=== PATIENT | female | born 1970 | race Caucasian/White ===

== ENCOUNTER 2019-01-12 16:07 | Emergency (ER) | payer BC ==
[~2019-01-12] VITALS: Ht 180.3 cm; Wt 105.2 kg
[~2019-01-12 16:07] MED LIST: ATIVAN1 MG PO; CYMBALTA30 MG PO; LUNESTA3 MG PO; PANTOPRAZOLE SO40 MG PO; ULTRAM50 MG PO
[2019-01-12] MEDS ORDERED: KETOROLAC TROMETHAMINE 30 MG/ML VIAL IV STA (16:27)
[2019-01-12] MEDS ORDERED: ACETAMINOPHEN/CODEINE ELIX 120-12 MG/5 ML UDC PO ONE (16:30)
--- OUTSIDE RECORDS SUMMARY | 2019-01-12 16:30 | XMS REPORT ---
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 Allergies, Adverse Reactions, Alerts This patient has no known allergies or adverse reactions. Medications This patient has no known medications. Results Test Description Test Time Test Comments Text Results Atomic Results Result Comments URINALYSIS WITH MICROSCOPIC 2017-02-03 10:53:00 Color (test code=UCOLR) YELLOW Clarity (test code=UCLAR) CLEAR Glucose (test code=UGLUC) NEGATIVE NEGATIVE Bilirubin (test code=UBILI) NEGATIVE NEGATIVE Ketones (test code=UKET) >=80 NEGATIVE Specific Daphne (test code=USPGR) >=1.030 1.005-1.030 Blood (test code=UBLD) NEGATIVE NEGATIVE PH (test code=UPH) 6.0 4.5-8.0 Protein (test code=UPROT) 30 NEGATIVE Urobilinogen (test code=U UROB) 0.2 >0.2 Nitrite (test code=UNITR) NEGATIVE NEGATIVE Leukocyte Esterase (test code=ULEUK) NEGATIVE NEGATIVE WBC (test code=WBCUR) 0-1 0-5 RBC (test code=RBCUR) 0-1 0-5 Epithial Cells (test code=U EPI) 30-40 0-10 Mucous (test code=UMUC) Small None Seen Bacteria (test code=UBACT) None Seen None Seen,Trace Crystals Urine (test code=URCRYS) Few Amorphous Urates None Seen Urine Casts (test code=UR CAST) None Seen None Seen XR ABD SERIES W/PA [id number] 09:57:04Procedure: XR ABD SERIES W/PA CXRExam Date: 02/03/2017 8:03 AMOrdering Provider: ASHLEIGH FUNESTClinical Indication: ABD PAIN: Pain- AbdominalComparison: NoneFindings:Upright chest x-ray:Cardiac size is normal.Pulmonary vasculature is normal.Mediastinal and aortic contour normal.There is no consolidation or effusion.Flat and upright abdomen:There is no small or large bowel distention.There is no pneumoperitoneum.There are no suspicious calcifications.There is no acute skeletal abnormality.Impression:1. Negative three-view chest and abdomen.This final report was electronically signed by Dr Santosh Inman MD 02/03/20179:50 AMDictated By: SANTOSH INMANDate: 02/03/2017 09:[id number] 09:02:00* Test Item Value Reference Range Comments Magnesium (test code=MG) 1.8 mg/dl 1.6-2.3 LIPASE, [id number] 09:02:00* Test Item Value Reference Range Comments Lipase (test code=LIPA) 24 U/L 8-223 [id number] 09:02:00* Test Item Value Reference Range Comments Glucose (test code=GLU) 142 mg/dl 75-110 BUN (test code=BUN) 7.0 mg/dl 6.0-17.0 Creatinine (test code=CREA) 0.5 mg/dl 0.4-1.2 Sodium (test code=NA) 143 mmol/l 137-145 Potassium (test code=K) 4.2 mmol/l 3.5-5.0 Chloride (test code=CL) 105 mmol/l 98-107 CO2 (test code=CO2) 25 mmol/l 22-30 Calcium (test code=CALC) 10.0 mg/dl 8.4-10.2 T Protein (test code=TP) 7.2 gm/dl 5.1-8.7 Albumin (test code=ALB) 4.3 gm/dl 3.5-4.6 A/G Ratio (test code=AGRAT) 1.5 % 1.1-2.2 AST (SGOT) (test code=AST) 24 U/L 11-36 ALT (SGPT) (test code=ALT) 39 U/L 11-40 Alkaline Phos (test code=ALKP) 95 U/L 47-114 Total Bilirubin (test code=TBIL) 0.6 mg/dl 0.2-1.2 Globulin (test code=GLOBU) 2.9 gm/dl 2.3-3.5 Calcium, Corrected (test code=CALCCORR) 9.8 mg/dl 8.4-10.2 Various formulas exist for corrected serum calcium results, each yielding different values. This corrected result was based on the formula: Corrected Calcium=SerumCalcium + [0.8 * ( 4 - SerumAlbumin)] EGFR if (test code=EGFRAA) >60 mL/min/1.73m\\S\\2 EGFR if Non- (test code=EGFRNA) >60 mL/min/1.73m\\S\\2 Estimated Glomerular Filtration Rate (eGFR) Reference Intervals Decision Points for 18 years and older and average body mass: >=60 Does not exclude kidney disease. 30 - 59 Suggests moderate chronic kidney disease and indicates the need for further investigation including assessment of proteinuria and cardiovascular factors. < 30 Usually indicates a need for referral for assessment and management of chronic kidney failure. CBC WITH AUTO [id number] 08:22:00* Test Item Value Reference Range Comments WBC (test code=WBC) 6.83 10\\S\\3/ul 4.80-10.80 RBC (test code=RBC) 4.73 10\\S\\6/ul 4.20-5.40 Hemoglobin (test code=HGB) 13.5 gm/dl 12.0-14.0 Hematocrit (test code=HCT) 41.6 % 37.0-47.0 MCV (test code=MCV) 87.9 fL 81.0-99.0 MCH (test code=MCH) 28.5 pg 27.0-31.0 MCHC (test code=MCHC) 32.5 gm/dl 33.0-37.0 RDW (test code=RDWVC) 13.7 % 11.5-14.5 Platelet (test code=PLT) 240 10\\S\\3/ul 130-400 MPV (test code=MPV) 12.2 fL 7.4-10.4 "NOT MEASURED" RESULTS ARE DISPLAYED WHEN THE INSTRUMENT HAS A SUPPRESSED OR UNREPORTABLE RESULT. THIS WILL MOST OFTEN HAPPEN WITH THE MPV WHEN THERE IS AN ABNORMAL PLATELET DISTRIBUTION DUE TO A CR ITICAL LOW VALUE OR PLATELET CLUMPING. THE RDW MAY BE SUPPRESSED IF THERE ARE MULTIPLE PEAKS PRESENT ON THE RBC HISTOGRAM. IN THIS CASE, A MANUAL REVIEW OF THE SLIDE WILL BE PERFORMED, AND RBC MORPHOLOGY WILL BE NOTED ON THE REPORT. NE% (test code=NE) 82.2 % 42.0-75.0 LY% (test code=LY) 13.9 % 13.0-42.0 MO% (test code=MO) 3.4 % 4.0-14.0 EO% (test code=EO) 0.0 % 1.0-3.0 BA% (test code=BA) 0.1 % 1.0-3.0 IG% (test code=IG%) 0.4 % 0.0-0.4 AUTO DIFFMAMMOGRAPHY DIGITAL SCR BILAT [place] [address] Patient Name: RIGO ALLEN MR #: [id number] : 1970 Age/Sex: 46/F Req #: [id number] Adm Physician: Ordered by: FLORENCE CHILD MD Report #: [id number] Location: MAMMO Room/Bed: Procedure: [id number] MG/MAMMOGRAPHY DIGITAL S CR BILAT Exam Date: 12/03/16 Exam Time: 0913 R EPORT STATUS: Signed #[id number] - MGSCRBIL #BILATERAL DIGITAL SCREEN ING MAMMOGRAM WITH CAD: 12/03/2016 CLINICAL: Routine screening. Compari son is made to exams dated: 04/02/2013 mammogram - [facility] and 07/21/2009 mammogram - [facility]. Current study con tains 4 films. The tissue of both breasts is heterogeneously dense. This may lower the sensitivity of mammography. Current study was also evaluated w ith a Computer Aided Detection (CAD) system. There is a benign lymph node in the right breast. No significant masses, calcifications, or other findings are seen in either breast. There has been no significant interval change. IMPRESSION: BENIGN There is no mammographic evidence of malignancy. A 1 ye ar screening mammogram is recommended. The patient will be notified by letter of the results. Ok basurto/brandon:12/14/2016 11:24:35 Advertising Consultant: Agnieszka ANDRES)(Diane), [facility] letter sent: Compared to Prior B9 Mammogram BI-RADS: 2 Benign Dictated By: OK FARFAN DO 1124 Transcribed By: BRANDON on 12/14/16 1124 COPY TO: FLORENCE CHILD MD
--- OUTSIDE RECORDS SUMMARY | 2019-01-12 16:31 | XMS REPORT | Continuity of Care Document ---
Author Author [facility] Organization [facility] Address [address] [place] [address] ;ext= Care Team Providers Care Railway Track Worker Name Role Phone ASHLEIGH TRAYLOR [facility] ASHLEIGH T[facility]LOR [facility] Admission Diagnosis Code Admission Diagnosis Date Abdominal pain Social History Element Description Code Description Smoking Status Code System Start Date End Date Smoking Status [id number] Unknown if ever smoked SNOMED-CT Problems Code Code System Problem Name Start Date End Date Status 350186347 SNOMED-CT Gastroparesis syndrome [address] Description 057438947 Drug Treatment Unknown Allergies Code Code System Allergy Substance Type Reaction Severity Start Date End Date Status 7052 RXNorm morphine Drug allergy Unknown Active Results Laboratory Results Order: UA URINALYSIS WITH MICROSCOPY LOINC Test Result Flag Range Unit Date 5778 1Color:Type:Pt:Urine:Nom YELLOW 02/03/2017 09:13 5767-9 1Appearance:Aper:Pt:Urine:Nom CLEAR 02/03/2017 09:13 2349-9 1Glucose:ACnc:Pt:Urine:Ord NEGATIVE NEGATIVE 02/03/2017 09:13 5770-3 1Bilirubin:ACnc:Pt:Urine:Ord:Test strip NEGATIVE NEGATIVE 02/03/2017 09:13 2514-8 1Ketones:ACnc:Pt:Urine:Ord:Test strip >=80 A NEGATIVE 02/03/2017 09:13 5811-5 1Specific gravity:Rden:Pt:Urine:Qn:Test strip >=1.030 A 1.005-1.030 02/03/2017 09:13 5794-3 1Hemoglobin:ACnc:Pt:Urine:Ord:Test strip NEGATIVE NEGATIVE 02/03/2017 09:13 5803-2 1pH:LsCnc:Pt:Urine:Qn:Test strip 6.0 A 4.5-8.0 02/03/2017 09:13 24704-0 1Protein:ACnc:Pt:Urine:Ord:Test strip 30 A NEGATIVE 02/03/2017 09:13 5818-0 1Urobilinogen:ACnc:Pt:Urine:Ord:Test strip 0.2 0.2 02/03/2017 09:13 5802-4 1Nitrite:ACnc:Pt:Urine:Ord:Test strip NEGATIVE NEGATIVE 02/03/2017 09:13 5799-2 1Leukocyte esterase:ACnc:Pt:Urine:Ord:Test strip NEGATIVE NEGATIVE 02/03/2017 09:13 5821-4 1Leukocytes:Naric:Pt:Urine sed:Qn:Microscopy.light.HPF 0-1 A 0-5 02/03/2017 09:13 96074-5 1Erythrocytes:Naric:Pt:Urine sed:Qn:Microscopy.light.HPF 0-1 A 0-5 02/03/2017 09:13 54829-4 1Epithelial cells.squamous:Naric:Pt:Urine sed:Qn:Microscopy.light.HPF 30-40 A 0-10 02/03/2017 09:13 8247-9 1Mucus:ACnc:Pt:Urine sed:Ord:Microscopy.light Small A None Seen 02/03/2017 09:13 5769-5 1Bacteria:Naric:Pt:Urine sed:Qn:Microscopy.light.HPF None Seen None Seen,Trace 02/03/2017 09:13 5782-8 1Crystals:Prid:Pt:Urine sed:Nom:Microscopy.light Few Amorphous Urates A None Seen 02/03/2017 09:13 9842-6 1Casts:Naric:Pt:Urine sed:Qn:Microscopy.light.LPF None Seen None Seen 02/03/2017 09:13 * Performing Lab Footnotes:* [address] [place] [address] - [id number] - [address] [address] - [place] [address] [facility] - MD: DIRECTOR MAYRA ARMENTA Order: CBC PLATELET AUTO DIFF LOINC Test Result Flag Range Unit Date 1Leukocytes^^corrected for nucleated erythrocytes:NCnc:Pt:Bld:Qn:Automated count 6.83 4.80-10.80 10^3/ul 02/03/2017 08:13 789-8 1Erythrocytes:NCnc:Pt:Bld:Qn:Automated count 4.73 4.20-5.40 10^6/ul 02/03/2017 08:13 718-7 1Hemoglobin:MCnc:Pt:Bld:Qn 13.5 12.0-14.0 gm/dl 02/03/2017 08:13 4544-3 1Hematocrit:VFr:Pt:Bld:Qn:Automated count 41.6 37.0-47.0 % 02/03/2017 08:13 787-2 1Erythrocyte mean corpuscular volume:EntVol:Pt:RBC:Qn:Automated count 87.9 81.0-99.0 fL 02/03/2017 08:13 785-6 1Erythrocyte mean corpuscular hemoglobin:EntMass:Pt:RBC:Qn:Automated count 28.5 27.0-31.0 pg 02/03/2017 08:13 786-4 1Erythrocyte mean corpuscular hemoglobin concentration:MCnc:Pt:RBC:Qn:Automated count 32.5 L 33.0-37.0 gm/dl 02/03/2017 08:13 788-0 1Erythrocyte distribution width:Ratio:Pt:RBC:Qn:Automated count 13.7 11.5-14.5 % 02/03/2017 08:13 777-3 1Platelets:NCnc:Pt:Bld:Qn:Automated count 240 130-400 10^3/ul 02/03/2017 08:13 12050-8 1Platelet mean volume:EntVol:Pt:Bld:Qn:Automated count 12.2 A 7.4-10.4 fL 02/03/2017 08:13 Note: 'NOT MEASURED' RESULTS ARE DISPLAYED WHEN THE INSTRUMENT HAS A SUPPRESSED OR UNREPORTABLE RESULT. THIS WILL MOST OFTEN HAPPEN WITH THE MPV WHEN THERE IS AN ABNORMAL PLATELET DISTRIBUTION DUE TO A CRITICAL LOW VALUE OR PLATELET CLUMPING. THE RDW MAY BE SUPPRESSED IF THERE ARE MULTIPLE PEAKS PRESENT ON THE RBC HISTOGRAM. IN THIS CASE, A MANUAL REVIEW OF THE SLIDE WILL BE PERFORMED, AND RBC MORPHOLOGY WILL BE NOTED ON THE REPORT. 770-8 1Neutrophils/100 leukocytes:NFr:Pt:Bld:Qn:Automated count 82.2 H 42.0-75.0 % 02/03/2017 08:13 736-9 1Lymphocytes/100 leukocytes:NFr:Pt:Bld:Qn:Automated count 13.9 13.0-42.0 % 02/03/2017 08:13 5905-5 1Monocytes/100 leukocytes:NFr:Pt:Bld:Qn:Automated count 3.4 L 4.0-14.0 % 02/03/2017 08:13 713-8 1Eosinophils/100 leukocytes:NFr:Pt:Bld:Qn:Automated count 0 L 1.0-3.0 % 02/03/2017 08:13 706-2 1Basophils/100 leukocytes:NFr:Pt:Bld:Qn:Automated count 0.1 L 1.0-3.0 % 02/03/2017 08:13 1IG% 0.4 0.0-0.4 % 02/03/2017 08:13 * Performing Lab Footnotes:* [address] [place] [address] [id number] - [address] [address] - [place] [address] [facility] - : DIRECTOR MAYRA ARMENTA Order: CMP COMPREHENSIVE METABOLIC PANEL LOINC Test Result Flag Range Unit Date 1Glucose 142 H 75-110 mg/dl 02/03/2017 08:13 1BUN 7 6.0-17.0 mg/dl 02/03/2017 08:13 1Creatinine 0.5 0.4-1.2 mg/dl 02/03/2017 08:13 1Sodium 143 137-145 mmol/l 02/03/2017 08:13 1Potassium 4.2 3.5-5.0 mmol/l 02/03/2017 08:13 1Chloride 105 98-107 mmol/l 02/03/2017 08:13 1CO2 25 22-30 mmol/l 02/03/2017 08:13 1Calcium 10 8.4-10.2 mg/dl 02/03/2017 08:13 1T Protein 7.2 5.1-8.7 gm/dl 02/03/2017 08:13 1Albumin 4.3 3.5-4.6 gm/dl 02/03/2017 08:13 1A/G Ratio 1.5 1.1-2.2 % 02/03/2017 08:13 1AST (SGOT) 24 11-36 U/L 02/03/2017 08:13 1ALT (SGPT) 39 11-40 U/L 02/03/2017 08:13 1Alkaline Phos 95 47-114 U/L 02/03/2017 08:13 1Total Bilirubin 0.6 0.2-1.2 mg/dl 02/03/2017 08:13 1Globulin 2.9 2.3-3.5 gm/dl 02/03/2017 08:13 1Calcium, Corrected 9.8 8.4-10.2 mg/dl 02/03/2017 08:13 Note: Various formulas exist for corrected serum calcium results, each yielding different values. This corrected result was based on the formula: Corrected Calcium=SerumCalcium + [0.8 * ( 4 - SerumAlbumin)] 1EGFR if >60 mL/min/1.73m^2 02/03/2017 08:13 1EGFR if Non- >60 mL/min/1.73m^2 02/03/2017 08:13 Note: Estimated Glomerular Filtration Rate (eGFR) Reference Intervals Decision Points for 18 years and older and average body mass: >=60 Does not exclude kidney disease. 30 - 59 Suggests moderate chronic kidney disease and indicates the need for further investigation including assessment of proteinuria and cardiovascular factors. < 30 Usually indicates a need for referral for assessment and management of chronic kidney failure. * Performing Lab Footnotes:* [address] [place] [address] [id number] [place] [address] SARAH Callaway MD: DIRECTOR MAYRA ARMENTA Order: LIPASE SERUM LOINC Test Result Flag Range Unit Date 1Lipase 24 8-223 U/L 02/03/2017 08:13 * Performing Lab Footnotes:* [address] [place] [address] [id number] - [address] [place] [address] SARAH Callaway MD: DIRECTOR MAYRA ARMENTA Order: MAGNESIUM SERUM LOINC Test Result Flag Range Unit Date 1Magnesium 1.8 1.6-2.3 mg/dl 02/03/2017 08:13 * Performing Lab Footnotes:* [address] [place] [address] [id number] - [address] [place] [address] SARAH Callaway MD: DIRECTOR MAYRA ARMENTA Radiology Results Order: [id number] XR ABD SERIES W/PA CXR* Exam Completion Date:02/03/2017 08:03 Procedure: XR ABD SERIES W/PA CXR Exam Date: 02/03/2017 8:03 AMOrdering Provider: ASHLEIGH SORENSENlinical Indication: ABD PAIN: Pain- AbdominalComparison: NoneFindings: Upright chest x-ray: Cardiac size is normal. Pulmonary vasculature is normal.Mediastinal and aortic contour normal. There is no consolidation or effusion.Flat and upright abdomen: There is no small or large bowel distention. There is no pneumoperitoneum. There are no suspicious calcifications. There is n o acute skeletal abnormality.Impression:1. Negative three-view chest and abdome n.This final report was electronically signed by Dr Santosh Inman MD 79:50 AMDictated By: SANTOSH INMANDate: 02/03/2017 09:57 Vital Signs Vitals Value Date BP Systolic 146 mmHg 02/03/2017 BP Diastolic 87 mmHg 02/03/2017 Respiratory Rate 14 02/03/2017 O2% BldC Oximetry 100 02/03/2017 Body Temperature 97.8 F 02/03/2017 Height 71 in 02/03/2017 Weight Measured 151.01 lbs 02/03/2017 BSA (Body Surface Area) 1.97348 02/03/2017 BMI (Body Mass Index) 21.1 02/03/2017 Plan of Care * No data in the system Procedures Code Code System Procedure Name Target Site Date of Procedure XR ABD SERIES W/PA CXR 02/03/2017 09:57 Encounters Date Code Diagnosis Status (ICD10) - K3184 GASTROPARESIS Active Immunizations * No data in the system Functional Status Code Functional/Cognitive Condition Code System Date Status [id number] Orientated SNOMED-CT 02/03/2017 Active [id number] Mentally alert SNOMED-CT 02/03/2017 Active Hospital Discharge Instructions * Discharge Instructions 2* Important Information* Consult your physician or return to the Emergency Department immediately if worse, if not better as expected, or if any problems arise. * Follow Up Care* Yes * Important Information* Please understand that you have received care only on an emergency basis. If your condition does not improve, you should call your personal physician for follow-up care. If you do not have a physician, you may call the referred physician listed. * If you have questions about your care or these discharge instructions, you may call the Emergency Department. Please take your discharge paperwork with you to any follow-up appointments. * Follow-Up With:* Primary Care Physician * Medication* While you were in the Emergency Department, you were given medication that may cause sedation. You may feel sleepy or light headed. Do not drive for 4-6 hours after discharge. * DO NOT drink alcohol, drive or operate machinery if taking medicines which cause drowsiness or make you feel light-headed. * Follow up Provider 1* primary dr * Activity Level* As tolerated, unrestricted * Diet* Regular * Patient Teaching* Patient education provided
[2019-01-12] MEDS ORDERED: DEXAMETHASONE SOD PHOS 10 MG/1 ML VIAL IM ONE (16:45)
[2019-01-12 17:00] LABS: BASOPHILS % 0.4 % (0.0-1.0); EOSINOPHILS # (AUTO) 0.1 (0.0-0.4); HEMATOCRIT 39.7 % (34.2-44.1); HEMOGLOBIN 12.9 g/dL (12.0-16.0); LYMPHOCYTES # (AUTO) 2.6 (1.0-3.2); LYMPHOCYTES % 38.2 % (18.0-39.1); MEAN CORPUSCULAR HEMOGLOBIN 28.9 pg (28-32); MEAN CORPUSCULAR HGB CONC 32.5 g/dL (31-35); MONOCYTES # (AUTO) 0.4 (0.2-0.8); MONOCYTES % 6.4 % (4.4-11.3); NEUTROPHILS # (AUTO) 3.6 (2.1-6.9); NEUTROPHILS % 53.9 % (38.7-80.0); PLATELET COUNT 287 x10e3/uL (140-360); RED BLOOD COUNT 4.46 x10e6/uL (3.6-5.1); RED CELL DISTRIBUTION WIDTH 14.6 % (11.7-14.4)
[2019-01-12] MEDS ORDERED: DIAZEPAM 5 MG TAB PO SCH (17:00)
[2019-01-12 17:01] LABS: BILIRUBIN,URINE NEGATIVE (NEGATIVE); CLARITY,URINE SL CLOUDY (CLEAR); COLOR,URINE YELLOW (YELLOW); KETONES,URINE TRACE (NEGATIVE); LEUKOCYTE ESTERASE ,URINE NEGATIVE (NEGATIVE); NITRITE,URINE NEGATIVE (NEGATIVE); PROTEIN,URINE DIPSTICK NEGATIVE (NEGATIVE); URINE UROBILINOGEN 0.2 mg/dL (0.2 - 1)
[2019-01-12 17:12] LABS: STREPTOCOCCUS GRP A ANTIGEN NEGATIVE (NEGATIVE)
[2019-01-12 17:13] LABS: BACTERIA,URINE FEW /HPF; EPITHELIAL CELLS,URINE RARE /LPF
[2019-01-12 17:18] LABS: ALANINE AMINOTRANSFERASE 12 IU/L (0-55); ALBUMIN 3.8 g/dL (3.5-5.0); ALBUMIN/GLOBULIN RATIO 1.2 (0.8-2.0); ALKALINE PHOSPHATASE 96 IU/L (40-150); ANION GAP 15.3 mmol/L (8-16); BLOOD UREA NITROGEN 11 mg/dL (7-26); BUN/CREATININE RATIO 15 (6-25); CALCIUM 9.3 mg/dL (8.4-10.2); CARBON DIOXIDE 25 mmol/L (22-29); CHLORIDE 103 mmol/L (98-107); CREATININE, SERUM 0.75 mg/dL (0.57-1.11); EST GLOMERULAR FILTRATION RATE > 60 ML/MIN (60-); GLUCOSE 104 mg/dL (74-118); POTASSIUM 4.3 mmol/L (3.5-5.1); SODIUM 139 mmol/L (136-145)
[2019-01-12 17:30] LABS: INFLUENZAE A&B ANTIGEN (RAPID) NEGATIVE (NEGATIVE)
--- NOTE | 2019-01-12 17:34 | Diagnostic Imaging Report ---
EXAM: CHEST 2 VIEWS DATE: 01/12/2019 4:27 PM INDICATION: Head/neck pain COMPARISON: None FINDINGS: The trachea is midline. The lungs are symmetrically expanded without evidence for large focal consolidation, pneumothorax, or significant pleural effusion. The cardiomediastinal silhouette and pulmonary vasculature are within normal limits. No acute osseous abnormality is identified. The surrounding soft tissues are unremarkable. IMPRESSION: No acute cardiopulmonary process identified. Signed by: Dr. Erich Garvin MD on 01/12/2019 5:31 PM
[2019-01-12 17:51] VITALS: BP 104/74
== END 2019-01-12 18:03 | disposition home or self-care (01) ==
LOC: ER 16:07
DX: R50.9 Fever, unspecified (principal); R05 Cough; J20.9 Acute bronchitis, unspecified; S16.1XXA Strain of muscle, fascia and tendon at neck level, initial encounter
CPT/HCPCS: 36415; 71046; 80053; 81001; 83518; 85025; 87040; 87070; 87086; 87400; 93005; 99284; J1100; J1885

== ENCOUNTER 2019-01-24 16:27 | Inpatient (IN) | payer BC ==
[~2019-01-24] VITALS: Ht 180.3 cm; Wt 72.6 kg
--- NOTE | 2019-01-24 16:41 | NUR ---
The pt. arrived to the unit from an outside Er and adm procedures were completed. Dr. Barksdale was notofied of the pt's arrival and orders received and he will see the pt. in the morning.
[2019-01-24 16:52] VITALS: BP 130/76
[2019-01-24 17:26] VITALS: BP 130/76
[2019-01-24] MEDS: SODIUM CHLORIDE 0.9% 1000ML 1,000 ML IV SCH (18:08)
[2019-01-24 19:25] VITALS: BP 129/71
[2019-01-24] MEDS ORDERED: HYDROMORPHONE 20MG/ NS 100ML IV PRN (19:30)
[2019-01-24] MEDS: HYDROMORPHONE 1MG/1ML INJ IV PRN (19:53)
[2019-01-24 21:00] VITALS: BP 129/71
[2019-01-24] MEDS: PROMETHAZINE 12.5MG/ NACL 0.9% 12.5 MG/50 ML BAG IV PRN (22:38)
[2019-01-25] VITALS (8 sets, daily range): BP systolic 89–106; BP diastolic 50–62
[2019-01-25] MEDS: HYDROMORPHONE 1MG/1ML INJ IV PRN ×6 (00:23→23:04)
[2019-01-25] MEDS: PROMETHAZINE 12.5MG/ NACL 0.9% 12.5 MG/50 ML BAG IV PRN ×2 (04:31→20:26)
--- NOTE | 2019-01-25 07:29 | NUR ---
H&P cc: intractable N/V HPI:48yoF, PCP , devleoped intractable N/V. does have hx gastric bypass. Last EGD in 2017. PMH: gastritis, esophagitis, intractable N/V, Gastric banding PSHx: Partial hysterectomy, Cholecystectomy. Allergies; see emr FH/SH; no illicits; no etoh meds; see MAR ROS; no f/c/s/BONNER/cp/sob/dizziness/skin rash/back pain/confusion/vision changes v/s/ revd PE tired appearing anicteric ns1s2 mod bs soft MILD EPIGASTRIC DISCOMFORT; nd no e/t skin dry n. affect labs/meds revd A/P: Intractable N/V Hx gastric banding GERD Gastritis Plan: IVF; IV ppi; antiemetics; bowel reg GI eval SCD Dispo; f/u GI recs Sergei Barksdale MD, PhD.
[2019-01-25] MEDS ORDERED: TRAMADOL HCL 50 MG TAB PO PRN (07:30)
[2019-01-25 08:05] LABS: BASOPHILS % 0.1 % (0.0-1.0); EOSINOPHILS # (AUTO) 0.1 (0.0-0.4); EOSINOPHILS % 1.2 % (0.0-6.0); HEMATOCRIT 34.6 % (34.2-44.1); LYMPHOCYTES # (AUTO) 3.2 (1.0-3.2); LYMPHOCYTES % 27.8 % (18.0-39.1); MEAN CORPUSCULAR HEMOGLOBIN 28.7 pg (28-32); MEAN CORPUSCULAR HGB CONC 31.8 g/dL (31-35); MEAN CORPUSCULAR VOLUME 90.3 fL (81-99); MONOCYTES # (AUTO) 1.1 (0.2-0.8); MONOCYTES % 9.5 % (4.4-11.3); NEUTROPHILS % 61.1 % (38.7-80.0); PLATELET COUNT 254 x10e3/uL (140-360); RED BLOOD COUNT 3.83 x10e6/uL (3.6-5.1); RED CELL DISTRIBUTION WIDTH 14.7 % (11.7-14.4)
[2019-01-25 08:31] LABS: ANION GAP 10.8 mmol/L (8-16); BLOOD UREA NITROGEN 8 mg/dL (7-26); BUN/CREATININE RATIO 13 (6-25); CALCIUM 8.4 mg/dL (8.4-10.2); CARBON DIOXIDE 24 mmol/L (22-29); CHLORIDE 106 mmol/L (98-107); CREATININE, SERUM 0.63 mg/dL (0.57-1.11); EST GLOMERULAR FILTRATION RATE > 60 ML/MIN (60-); GLUCOSE 84 mg/dL (74-118); POTASSIUM 3.8 mmol/L (3.5-5.1); SODIUM 137 mmol/L (136-145)
[2019-01-25 08:55] LABS: MAGNESIUM 1.8 MG/DL (1.3-2.1); PHOSPHORUS 2.7 MG/DL (2.3-4.7)
[2019-01-25] MEDS ORDERED: PANTOPRAZOLE 40 MG 10ML VIAL IV SCH (09:00)
[2019-01-25] MEDS: DULOXETINE HCL 30 MG DELAYED RELEASE PO SCH ×2 (09:03→17:31)
[2019-01-25] MEDS: SENNOSIDES 8.6 MG TAB PO SCH (09:03)
[2019-01-25] MEDS: MULTIVITAMINS/MINERALS TAB PO SCH (09:03)
--- NOTE | 2019-01-25 11:26 | NUR ---
Call recvd from Dr Diane Fountain and order recvd to get the consent for EGD
[2019-01-25] MEDS: SODIUM CHLORIDE 0.9% 1000ML 1,000 ML IV SCH (11:35)
[2019-01-25] MEDS ORDERED: NICOTINE 14 MG/EA PATCH TOP SCH (14:00)
[2019-01-25] MEDS: NICOTINE 14 MG/EA PATCH TOP SCH (14:12)
--- NOTE | 2019-01-25 16:11 | NUR ---
Patient off the unit for EGD, Stable
[2019-01-25] MEDS ORDERED: PANTOPRAZOLE 40 MG 10ML VIAL IV ONE (16:53)
--- NOTE | 2019-01-25 17:46 | NUR ---
Recvd patient from PACU. AAOx3, Not in any distress, keep monitoring
[2019-01-25] MEDS: METOCLOPRAMIDE HCL 10 MG/2ML VIAL IV SCH ×2 (17:50→23:04)
--- NOTE | 2019-01-25 20:00 | NUR ---
pt received. pt assessed. no ss of distress noted. pt co of constant upper abd pain. discussed pain mgnt poc. verbalized understanding. will cont to follow poc. call mccullough within reach.
--- NOTE | 2019-01-25 21:48 | Operative Report ---
DATE OF PROCEDURE: 01/25/2019 SURGEON: Elliott Fountain MD ADDITIONAL REFERRING PHYSICIAN: Samm Davenport MD. PROCEDURE: EGD with biopsies. INDICATIONS FOR EGD: Intractable nausea and vomiting. MEDICATIONS: The patient was done under MAC. Please see anesthesiologist's note. DESCRIPTION OF PROCEDURE: With the patient in left lateral decubitus position, a flexible fiberoptic Olympus gastroscope was introduced into the esophagus under direct visualization without any difficulty. There was some patchy erythema noted in distal esophagus. A minute tongue of velvety red mucosa was noted to extend proximally from the GE junction. Biopsies were obtained to rule out Solorzano's. The scope was then advanced with ease into the stomach and the patient was apparently status post Kellie-en-Y. Anastomosis was intact. Enteric loop was patent. No evidence of marginal ulcers. The scope was subsequently withdrawn. The patient tolerated the procedure well. IMPRESSION: 1. Distal esophagitis, mild. 2. Rule out Solorzano esophagus. 3. Status post Kellie-en-Y. Anastomosis intact. No evidence of marginal ulcers. PLAN: Follow up histology. We will augment current PPI therapy. Initiate IV Reglan. Elliott Fountain MD [facility] /[id number] cc: MD Samm Freeman III, MD
[2019-01-26] VITALS (7 sets, daily range): BP systolic 117–143; BP diastolic 64–81
[2019-01-26] MEDS ORDERED: ACETAMINOPHEN 325 MG TAB PO PRN (00:45)
[2019-01-26] MEDS: PROMETHAZINE 12.5MG/ NACL 0.9% 12.5 MG/50 ML BAG IV PRN ×3 (02:24→14:51)
--- NOTE | 2019-01-26 03:03 | NUR ---
hat placed in bathroom. pt informed ua needed. verbalized understanding. call mccullough within reach.
[2019-01-26] MEDS: SODIUM CHLORIDE 0.9% 1000ML 1,000 ML IV SCH (03:19)
[2019-01-26] MEDS: HYDROMORPHONE 1MG/1ML INJ IV PRN ×4 (03:20→20:57)
[2019-01-26] MEDS: METOCLOPRAMIDE HCL 10 MG/2ML VIAL IV SCH ×4 (05:42→23:53)
[2019-01-26] MEDS: PANTOPRAZOLE 40 MG 10ML VIAL IV SCH ×2 (05:42→16:52)
--- NOTE | 2019-01-26 06:13 | NUR ---
ua collected and sent to lab. no ss of distress noted. call mccullough within reach.
[2019-01-26 06:22] LABS: CLARITY,URINE HAZY (CLEAR); COLOR,URINE YELLOW (YELLOW)
[2019-01-26 06:23] LABS: LEUKOCYTE ESTERASE ,URINE NEGATIVE (NEGATIVE); NITRITE,URINE NEGATIVE (NEGATIVE); PROTEIN,URINE DIPSTICK NEGATIVE (NEGATIVE)
[2019-01-26 06:24] LABS: BILIRUBIN,URINE NEGATIVE (NEGATIVE); KETONES,URINE 2+ (NEGATIVE); URINE UROBILINOGEN 0.2 mg/dL (0.2 - 1)
[2019-01-26 06:33] LABS: WBC,URINE (MAN) 0-5 /HPF (0-5)
[2019-01-26 06:34] LABS: BACTERIA,URINE MANY /HPF; EPITHELIAL CELLS,URINE MANY /LPF; RBC,URINE 0-5 /HPF (0-5)
[2019-01-26 06:45] LABS: CALCIUM OXALATE CRYSTALS,UR MANY (FEW); MUCUS,URINE MODERATE (RARE)
--- NOTE | 2019-01-26 07:12 | NUR ---
pt alert resp even and unlabored at this time. pt able to make needs known, no c/o pain nor distress noted, call light in reach.
[2019-01-26] MEDS: DULOXETINE HCL 30 MG DELAYED RELEASE PO SCH ×2 (08:35→16:52)
[2019-01-26] MEDS: NICOTINE 14 MG/EA PATCH TOP SCH (08:35)
[2019-01-26] MEDS: SENNOSIDES 8.6 MG TAB PO SCH (08:35)
[2019-01-26] MEDS: MULTIVITAMINS/MINERALS TAB PO SCH (08:35)
[2019-01-26] MEDS ORDERED: HYDROCODONE/APAP 5MG-325MG TAB PO PRN ×2 (14:30→14:45)
--- NOTE | 2019-01-26 16:24 | Progress Note ---
DATE: 01/26/2019 Medicine Progress Note SUBJECTIVE: The patient has recently had an EGD, had a distal esophagitis. I am covering for Dr. Sergei Barksdale. She is currently stating that she has some pain, but despite on examination, there is no tenderness. She had an EGD yesterday. She is requiring IV Dilaudid continuously. PHYSICAL EXAMINATION: VITAL SIGNS: Temperature is 98, pulse 69, respiratory rate is 20, blood pressure 136/81, and pulse ox 98% on room air. GENERAL: Not in acute distress. Alert and oriented x3. Cooperative on examination. HEENT: Head; normocephalic, atraumatic. Eyes; pupils are equal, round, and reactive to light bilaterally. Extraocular movements intact bilaterally. Throat; no evidence of erythema or exudates in the posterior pharynx. Has poor dentition. NECK: Supple. Good range of motion. PULMONARY: Clear to auscultation bilaterally. No wheezing, no rales, no rhonchi, no crackles appreciated. CARDIOVASCULAR: Positive S1 and S2. No murmurs, rubs, or gallops appreciated. ABDOMEN: Soft, nondistended, and nontender to palpation. Bowel sounds present. MUSCULOSKELETAL: Strength is 5/5 throughout. No evidence of any muscle deficits on examination. No weakness appreciated. NEUROLOGIC: Cranial nerves II through XII grossly intact. No evidence of any neurological deficits on exam. SKIN: Intact. Warm to touch. Good cap refill. PSYCHIATRIC: Normal affect and mood. EXTREMITIES: No edema. Good range of motion throughout. LABORATORY FINDINGS: Show white count 11.4, hemoglobin 11, hematocrit is 34, and platelets of 254. Chemistry; sodium 137, potassium 3.8, chloride 106, bicarb 24, anion gap of 10, BUN is 8, creatinine is 0.63, glucose 84, calcium 8.4, phosphorus 2.7, magnesium 1.8, and glucose is 91. Urinalysis shows calcium oxalate, urine bacteria, mucus seen. MICROBIOLOGY: None. IMAGING STUDIES: None. IMPRESSION: 1. Intractable nausea and vomiting. 2. History of gastric banding. 3. Acid reflux with gastritis. PLAN: The patient underwent status post EGD on 01/25/2019, by Dr. Fountain, that showed evidence of distal esophagitis, which is mild and status post Kellie-en-Y anastomosis intact. No evidence of marginal ulcerations. At this time, he recommended PPI b.i.d. and IV Reglan. We will also add Carafate. She still reports having some pain, despite on examination, there is no evidence of any pain. We will add Linwood 5 mg q.6 p.r.n., change Phenergan to Zofran. Add Carafate to see if that will help with the pain. I feel like the patient likely has some drug-seeking behavior, as the patient clinically on examination, does not exhibit any kind of pain. Otherwise, we will continue same plan of care and monitor very closely. Get a.m. labs. MD JHONNY Salamanca/[place] /[id number]
[2019-01-26] MEDS: SUCRALFATE 1 GM/10 ML SUSP NG SCH ×2 (16:52→21:01)
--- NOTE | 2019-01-26 19:24 | NUR ---
report given to oncoming nurse, pt stable at this time.
[2019-01-26] MEDS ORDERED: METOCLOPRAMIDE HCL 10 MG/2ML VIAL ONE (19:45)
--- NOTE | 2019-01-26 22:40 | NUR ---
patient in bed, iv fluid is running, left IV line intact, she had pain med PRN earlier, now she is resting, bed alarm is on, will continue to monitor.
[2019-01-27] VITALS (10 sets, daily range): BP systolic 101–119; BP diastolic 51–72
--- NOTE | 2019-01-27 00:23 | NUR ---
Dr Diane Fountain came and saw patient in her room, the MD advanced the diet to full liquid.
[2019-01-27] MEDS ORDERED: DONNATAL/LIDOCAINE/MAALOX 30 ML SUSP PO PRN (00:45)
--- NOTE | 2019-01-27 01:20 | NUR ---
left antecubital IV is infiltrated, inserted a new IV to left hand size 22.
[2019-01-27] MEDS: HYDROMORPHONE 1MG/1ML INJ IV PRN ×5 (01:29→21:10)
[2019-01-27] MEDS: PANTOPRAZOLE 40 MG 10ML VIAL IV SCH ×2 (05:42→16:34)
[2019-01-27 05:44] LABS: BASOPHILS % 0.2 % (0.0-1.0); EOSINOPHILS # (AUTO) 0.1 (0.0-0.4); EOSINOPHILS % 1.8 % (0.0-6.0); HEMATOCRIT 32.6 % (34.2-44.1); HEMOGLOBIN 10.3 g/dL (12.0-16.0); LYMPHOCYTES # (AUTO) 2.8 (1.0-3.2); MEAN CORPUSCULAR HEMOGLOBIN 28.6 pg (28-32); MEAN CORPUSCULAR HGB CONC 31.6 g/dL (31-35); MEAN CORPUSCULAR VOLUME 90.6 fL (81-99); MONOCYTES # (AUTO) 0.6 (0.2-0.8); MONOCYTES % 9.4 % (4.4-11.3); NEUTROPHILS # (AUTO) 3.1 (2.1-6.9); NEUTROPHILS % 46.4 % (38.7-80.0); PLATELET COUNT 214 x10e3/uL (140-360); RED CELL DISTRIBUTION WIDTH 14.7 % (11.7-14.4)
[2019-01-27 06:09] LABS: ANION GAP 10.2 mmol/L (8-16); BLOOD UREA NITROGEN 9 mg/dL (7-26); BUN/CREATININE RATIO 15 (6-25); CALCIUM 7.9 mg/dL (8.4-10.2); CARBON DIOXIDE 24 mmol/L (22-29); CHLORIDE 106 mmol/L (98-107); CREATININE, SERUM 0.62 mg/dL (0.57-1.11); EST GLOMERULAR FILTRATION RATE > 60 ML/MIN (60-); GLUCOSE 89 mg/dL (74-118); POTASSIUM 3.2 mmol/L (3.5-5.1); SODIUM 137 mmol/L (136-145)
[2019-01-27] MEDS: SODIUM CHLORIDE 0.9% 1000ML 1,000 ML IV SCH ×3 (06:30→12:25)
[2019-01-27] MEDS: METOCLOPRAMIDE HCL 10 MG/2ML VIAL IV SCH ×4 (06:31→23:48)
[2019-01-27] MEDS: SUCRALFATE 1 GM/10 ML SUSP NG SCH ×4 (08:16→21:09)
[2019-01-27] MEDS: MULTIVITAMINS/MINERALS TAB PO SCH (10:34)
[2019-01-27] MEDS: DULOXETINE HCL 30 MG DELAYED RELEASE PO SCH ×2 (10:34→16:34)
[2019-01-27] MEDS: NICOTINE 14 MG/EA PATCH TOP SCH (10:34)
[2019-01-27] MEDS: SENNOSIDES 8.6 MG TAB PO SCH (10:34)
[2019-01-27 12:00] LABS: LYMPHOCYTES % (MANUAL) 41 % (19-48); MONOCYTES % (MANUAL) 8 % (3.4-9.0); NEUTROPHILS % (MANUAL) 46 % (40-74); PLATELET ESTIMATE ADEQUATE; PLATELET MORPHOLOGY COMMENT NORMAL; RBC MORPHOLOGY COMMENT NORMAL
--- NOTE | 2019-01-27 15:17 | Progress Note ---
DATE: 01/27/2019 Medicine Progress Note SUBJECTIVE: The patient is tolerating full liquid diet today. Plan is to advance her diet later today. Pain is well controlled now. PHYSICAL EXAMINATION: VITAL SIGNS: She is afebrile, normotensive. Respiratory rate is good. GENERAL: Not in acute distress. Alert and oriented x3. Cooperative on examination. HEENT: Head; normocephalic, atraumatic. Eyes; pupils are equal, round, and reactive to light bilaterally. Extraocular movements intact bilaterally. Throat; no evidence of erythema or exudates in the posterior pharynx. Has poor dentition. NECK: Supple. Good range of motion. PULMONARY: Clear to auscultation bilaterally. No wheezing, no rales, no rhonchi, no crackles appreciated. CARDIOVASCULAR: Positive S1 and S2. No murmurs, rubs, or gallops appreciated. ABDOMEN: Soft, nondistended, and nontender to palpation. Bowel sounds present. MUSCULOSKELETAL: Strength is 5/5 throughout. No evidence of any muscle deficits on examination. No weakness appreciated. NEUROLOGIC: Cranial nerves 2 through 12 grossly intact. No evidence of any neurological deficits on exam. SKIN: Intact. Warm to touch. Good cap refill. PSYCHIATRIC: Normal affect and mood. EXTREMITIES: No edema. Good range of motion throughout. LABORATORY DATA: Labs reviewed and stable. IMPRESSION: 1. Intractable nausea, vomiting. 2. History of gastric banding. 3. Acid reflux with gastritis. PLAN: At this time, the patient underwent status post EGD on 01/25/[address] Fountain, showed some evidence of distal esophagitis, which is mild and status post Kellie-en-Y anastomosis intact. No evidence of marginal ulcers. At this time, he recommends PPI b.i.d. and IV Reglan. We will also add the Carafate. Her pain is now better controlled. Continue with [facility] as needed for medications. Continue same plan of care. I would like to advance her diet to GI soft because she is anticipating being discharged hopefully tomorrow. MD JHONNY Salamanca/MODL /[id number]
--- NOTE | 2019-01-27 21:00 | NUR ---
PATIENT IS AOX4, NO SIGNS OF DISTRESS NOTED. PATIENT VOICES PAIN AT A LEVEL OF 7 AND WAS MEDICATED ORDERED. FAMILY MEMBER AT BEDSIDE AND IV IS INTACT AND PATENT. BED IS IN LOW POSITION, BOTH SIDE RAILS ARE UP, CALL LIGHT IS WITHIN EASY REACH, WILL CONTINUE TO MONITOR.
[2019-01-28] MEDS: HYDROMORPHONE 1MG/1ML INJ IV PRN ×2 (01:10→04:44)
[2019-01-28] MEDS ORDERED: ONDANSETRON HCL INJ 2MG/ML 2ML 2 MG/ML VIAL IV PRN (02:45)
[2019-01-28] MEDS: PANTOPRAZOLE 40 MG 10ML VIAL IV SCH (04:43)
[2019-01-28] MEDS: SODIUM CHLORIDE 0.9% 1000ML 1,000 ML IV SCH (05:05)
[2019-01-28 05:59] VITALS: BP 112/57
[2019-01-28] MEDS: METOCLOPRAMIDE HCL 10 MG/2ML VIAL IV SCH (06:38)
[2019-01-28 08:30] VITALS: BP 103/54
[2019-01-28] MEDS: SUCRALFATE 1 GM/10 ML SUSP NG SCH ×2 (08:35→11:58)
[2019-01-28] MEDS: MULTIVITAMINS/MINERALS TAB PO SCH (08:36)
[2019-01-28] MEDS: DULOXETINE HCL 30 MG DELAYED RELEASE PO SCH (08:36)
[2019-01-28] MEDS: NICOTINE 14 MG/EA PATCH TOP SCH (08:36)
[2019-01-28] MEDS: SENNOSIDES 8.6 MG TAB PO SCH (08:39)
--- NOTE | 2019-01-28 08:52 | NUR ---
Call to Dr. Fountain and cleared for discharge from his end and to f/u with him, Make sure patient has Carafate and PPI ordered by attending.
[2019-01-28 10:13] VITALS: BP 103/54
[2019-01-28] MEDS ORDERED: ONDANSETRON HCL 4 MG ORAL DISINTEGRATING TAB PO PRN (11:15)
[2019-01-28 11:19] VITALS: BP 116/56
[2019-01-28] MEDS ORDERED: METOCLOPRAMIDE HCL 10 MG TAB PO SCH (12:00)
--- NOTE | 2019-01-28 14:28 | NUR ---
DISCHARGED. ALL BELONGINGS WITH PATIENT. SL REMOVED INTACT. MD EXPLAINED FOLLOW UP CARE TO PATIENT. SCRIPTS AND DISCHARGE INSTRUCTIONS EXPLAINED AND COPY GIVEN TO PATIENT. PATIENT LEFT IN [facility], NO FURTHER C/O ABD DISCOMFORT.
[2019-01-28] MEDS ORDERED: PANTOPRAZOLE SOD 40 MG TABEC PO SCH (21:00)
--- NOTE | 2019-01-29 14:14 | Discharge Summary ---
FINAL DISCHARGE DIAGNOSES: 1. Intractable nausea and vomiting, status post EGD on 01/25/2019, that shows distal esophagitis and gastritis. 2. History of gastric banding. 3. Acid reflux with gastritis. CONSULTANTS: GI. PHYSICAL EXAMINATION: VITAL SIGNS: Temperature is 97.7, pulse 54, respiratory rate is 20, blood pressure 116/56, and pulse ox 99% on room air. LABORATORY FINDINGS: Show white count 6.6, hemoglobin 10.3, hematocrit is 32, and platelets of 240. Chemistry; sodium 137, potassium 3.2 replaced, chloride 106, bicarb 24, anion gap of 10, BUN is 9, creatinine 0.62, glucose is 89, calcium is 7.9, magnesium 1.8, and phosphorus is 2.7. MICROBIOLOGY: None. IMAGING STUDIES: None. HOSPITAL COURSE: This is a 48-year-old female, which I was covering for Dr. Barksdale, comes in with complaints of abdominal pain, nausea, and vomiting, has a history of gastric bypass in the past in which GI was consulted. The patient underwent status post EGD, in which she was found to have a distal esophagitis with mild gastritis. She had normal Kellie-en-Y anastomosis that was intact. There was no evidence of any marginal ulcerations according to report. Postprocedure, she was started on oral Protonix b.i.d. and IV Reglan as well as Carafate. The patient's symptoms improved throughout the hospital course. There was no evidence of any bleeding. The patient was started on clear liquid diet and advance to regular diet, which she tolerated well. She was cleared for discharge by GI standpoint. The patient was doing well with no other complaints, back to normal baseline. On the day of discharge, vital signs were stable, labs reviewed and stable. The patient is seen and evaluated, and examined thoroughly on the day of discharge. No other complaints. The patient verbalized understanding and agreed to plan of care to follow up accordingly as an outpatient with the primary care physician in 1 week and GI in 2 weeks' time, in relation to the biopsy results. MEDICATIONS: See med reconciliation form. DISPOSITION: Home. CONDITION: Stable. DIET: Heart healthy. In the event of any worsening symptoms, the patient was advised to come back to the ED for further evaluation. Discharge summary took greater than 35 minutes. MD JHONNY Salamanca/[facility] /[id number]
== END 2019-01-28 14:30 | disposition home or self-care (01) | DRG 392 ==
LOC: MED/SURG2 16:31 → OBSVTOIN 01-26 13:58
PROVIDERS: ADMIT Internal Medicine; ATTEND Internal Medicine
PROC: 0DB28ZX Excision of Middle Esophagus, Via Natural or Artificial Opening Endoscopic, Diagnostic (ICD-10-PCS; principal; 2019-01-25 18:00)
DX: K21.0 Gastro-esophageal reflux disease with esophagitis (principal); Z98.84 Bariatric surgery status; K29.70 Gastritis, unspecified, without bleeding
CPT/HCPCS: 36415; 43239; 80048; 81001; 82948; 83735; 84100; 85025; 88305; 96360; 96361; 96367; 96375; 96376; G0378; J1170; J2405; J2550; J2765; J7030

== ENCOUNTER 2019-06-26 16:44 | Emergency (ER) | payer BC ==
[~2019-06-26] VITALS: Ht 180.3 cm; Wt 70.3 kg
--- OUTSIDE RECORDS SUMMARY | 2019-06-26 16:48 | XMS REPORT | Clinical Summary ---
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 Active ALPRAZolam (XANAX) 1 MG Take 1 mg by 0 tablet mouth 2 (two) times a day. Active calcium citrate-vitamin Take 1 tablet 0 D3 (CITRACAL+D) 315-200 by mouth mg-unit per tablet every morning. Active FOLIC Take 1 tablet 0 ACID/MULTIVIT-MIN/LUTEIN by mouth (CENTRUM SILVER ORAL) every morning. Active cyanocobalamin, vitamin Place 1,000 30 each 5 B-12, 1,000 mcg tablet, mcg under the 7 sublingual tongue daily. Active DULoxetine (CYMBALTA) 60 Take 60 mg by 1 12/13 MG capsule mouth 2 (two) 7 times a day. Active sucralfate (CARAFATE) 1 TAKE 1 TABLET 120 tablet 0 gram tablet BY MOUTH FOUR 8 TIMES DAILY Active pantoprazole (PROTONIX) TAKE 1 30 tablet 0 40 MG EC tablet TABLET(40 MG) 8 BY MOUTH DAILY Active cyanocobalamin 1,000 USE 1 ML 20 mL 0 12/25 mcg/mL injection DIRECTED IN 9 THE MUSCLE EVERY MONTH 12/25/2018 Discontinued (Reorder) cyanocobalamin 1,000 USE 1 ML 20 mL 0 07/16 mcg/mL injection DIRECTED IN 8 THE MUSCLE EVERY MONTH Status Hospital, Clinic, or Ordered Dose Route Frequency Start End Date Other Facility Date Administered Medication Active cyanocobalamin injection 1000 mcg IM once 0 09/04/19 1,000 mcgIndications: 17 Poor nutrition Active Problems Problem Noted Date SBO (small bowel obstruction) 01/08/2017 Partial intestinal obstruction 01/07/2017 Tobacco dependence 10/29/2016 Acute colitis 10/22/2016 Clostridium difficile colitis 10/04/2016 Candidiasis of esophagus 10/03/2016 Abdominal pain 10/01/2016 Vomiting 09/30/2016 History of Kellie-en-Y gastric bypass 07/03/2016 GI bleed 06/25/2016 S/P gastric bypass 06/25/2016 Dysphagia 05/30/2016 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 GERD (gastroesophageal reflux disease) 05/21/2016 Depression 05/21/2016 Anxiety 05/21/2016 Intractable vomiting 05/16/2016 Depression 05/15/2016 Anxiety 05/15/2016 Intractable vomiting with nausea 05/14/2016 Encounters Care Team Description Date Type Specialty Frankie Heard MD 12/25/2018 Refill General Surgery Krys Nam RN Bariatric Follow Up Call 12/02/2018 Documentation Weight Management Federica Hazel MA Intestinal malabsorption, unspecified ty pe (Primary Dx); Bariatric surgery status 09/30/2018 Orders Only General Surgery after 06/25/2018 Immunizations Name Administration Dates Next Due FLUCELVAX QUAD PF 10/24/2016 Family History Medical History Relation Name Comments Hypertension Brother Asthma Mother Breast cancer Mother Diabetes Mother Hypertension Mother Hypertension Sister Relation Name Status Comments Brother Father Mother Alive Sister Social History Date Tobacco Use Types Packs/Day Years Used Former Smoker Cigarettes 0.5 30 Smokeless Tobacco: Never Used Tobacco Cessation: Counseling Given: Yes Drinks/Week oz/Week Comments Alcohol Use social No Sex Assigned at Date Recorded Not on file Industry Job Start Date Occupation Not on file Not on file Not on file Travel End Travel History Travel Start No recent travel history available. Last Filed Vital Signs Not on file Plan of Treatment Health Maintenance Due Date Last Done Comments CERVICAL CANCER SCREENING 1993 INFLUENZA VACCINE 09/11/2019 10/24/2016 Implants Device Identifier Shelf Expiration Date Model / Serial / L ot Implanted Type Area Manufactur er 09/09/2017 [id number] / / [id number] Kit Selnt Fibrin Humn Hms Surgy Surgical N/A: N/A [employer] 5ml Evicel - [id number] Implants; - Implanted: Qty: 1 on 05/30/2016 by [employer]; Frankie Heard MD at [facility] [employer]; HOSPITAL Surgical Wires [id number] / / [id number] Barrier Adhesion 5x6in Seprafilm - Surgical N/A: N/A GEN[employer]ME [id number] Implants; BIOSURGERY Implanted: Qty: 1 on 09/05/2016 by [employer]; Frankie Heard MD at [facility] [employer]; HOSPITAL Surgical Wires Results Not on fileafter 06/25/2018 Additional Health Concerns Resolved Time Infection Noted Time C.Difficile (E) 10/04/2016 9:09 AM CDT Insurance Type Payer Benefit Subscriber ID Effective Phone Address Plan / Dates Group PPO BCBS BCBS xxxxxxxxxxxx [id number] CHOICE resent PPO/[place] PPO [id number] Advance Directives For more information, please contact: [phone] Patient Cigarette Tester Explanation Type Date Recorded Advance Directives, 09/02/2016 12:26 PM Living Will and Medical Power of Equalizer Operator Advance Directives, 06/25/2016 11:27 AM Living Will and Medical Power of Equalizer Operator Date Inactivated Comments Code Status Date Activated 09/07/2016 10:40 PM Full Code 09/05/2016 11:21 AM Code Status decision reached by: Patient 07/24/2016 7:35 PM Full Code 07/22/2016 2:39 PM Code Status decision reached by: Patient
--- OUTSIDE RECORDS SUMMARY | 2019-06-26 16:48 | XMS REPORT ---
Author Author [facility] t Organization [facility] Address 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 Name Role Phone Aris CARMEN PCP Najma MASCORRO Attphys Unavailable Aris GORDON Attphys Unavailable Orquidea GUILLAUME, Kit David Attphys Viv WOODRUFF, Krys Attphys Unavailable Ilir AGUILAR, Aris Stallworth Attphys Unavailable LAYTON, ASHLEIGH Attphys Unavailable LAYTON, L ASHLEIGH Attphys Unavailable FLORENCE CHILD Attphys Unavailable Najma MASCORRO Admphys Unavailable LAYTON, L ASHLEIGH Admphys Unavailable Payers Payer Name Policy Type Policy Number Effective Date Expiration Date [id number] 2015 00:00:00 [facility] [id number] 2015 00:00:00 [facility] [id number] 2015 00:00:00 [facility] BCBSBCBS CHOICE PPO/FEDERAL EMPL PPOxxxxxxxxxxxx2015-Pre sentPPO xxxxxxxxxxxx 2015 00:00:00 [place] Problems Condition Name Condition Details Condition Category Status Onset Date Resolution Date Last Treatment Date Treating Clinician Comments Source SBO (small bowel obstruction) SBO (small bowel obstruction) Disease Active 2017-01-08 00:00:00 [place] Partial intestinal obstruction Partial intestinal obstruction Disea se Active 2017-01-07 00:00:00 [place] Tobacco dependence Tobacco dependence Disease Active 2016-10-29 00:00:0 0 [place] Acute colitis Acute colitis Disease Active 2016-10-22 00:00:00 [place] Clostridium difficile colitis Clostridium difficile colitis Disease Active 2016-10-04 00:00:00 [place] Candidiasis of esophagus Candidiasis of esophagus Disease Acti ve 2016-10-03 00:00:[address] Abdominal pain Abdominal pain Disease Active 2016-10-01 00:00:00 [place] Vomiting Vomiting Disease Active 2016-09-30 00:00:00 [place] [place] 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 Active 2016-07-03 00:00:00 [place] GI bleed GI bleed Disease Active 2016-06-25 00:00:00 [place] S/P gastric bypass S/P gastric bypass Disease Active 2016-06-25 00:00:0 0 [place] Dysphagia Dysphagia Disease Active 2016-05-30 00:00:00 [place] Solorzano esophagus Solorzano esophagus Disease Active 2016-05-21 00:00:00 [place] GERD (gastroesophageal reflux disease) GERD (gastroesophagea l reflux disease) Disease Active 2016-05-21 00:00:00 [place] Depression Depression Disease Active 2016-05-21 00:00:00 [place] Anxiety Anxiety Disease Active 2016-05-21 00:00:00 [place] [facility] Intractable vomiting Intractable vomiting Disease Active 00:00:00 [place] [facility] Depression Depression Disease Active 2016-05-15 00:00:00 [place] [facility] Anxiety Anxiety Disease Active 2016-05-15 00:00:00 [place] [facility] Intractable vomiting with nausea Intractable vomiting with nause a Disease Active 2016-05-14 00:00:00 [place] abbott [facility]ai Abdominal pain Abdominal pain Problem Active 2015-06-30 00:00:00 [facility] Leukocytosis Leukocytosis Problem Active 2015-06-30 00:00:00 [facility] History of adjustable gastric banding Gastric banding status Proble m Active 2015-06-30 00:00:00 [facility] Allergies, Adverse Reactions, Alerts Allergy Name Allergy Type Status Severity Reaction(s) Onset Date Inacti ve Date Treating Clinician Comments Source Morphine Allergy to Substance Active Unknown 2019-01-24 00:00:00 [facility] Codeine Propensity to adverse reactions to drug Active Other (See Comments) 2016-09-02 00:00:00 yumiko [facility] Morphine Propensity to adverse reactions to drug Active Other (See Comments) 2016-05-28 00:00:00 Welelizabeth, alpa [facility] No Known Allergies DA Active U 2015-06-29 00:00:00 [facility] Family History Family Member Diagnosis Comments Start Date Stop Date Source Natural brother Hypertension [place] [facility]ai Natural mother Asthma [facility] Natural mother Breast cancer [place] Bahai Natural mother Diabetes [facility] Natural mother Hypertension [place]lie Bahai Natural sister Hypertension Ellerslie Bahai Social History Social Habit Start Date Stop Date Quantity Comments Source History of tobacco use Cigarette Smoker [place] [place] Sex Assigned At [facility] Cigarettes smoked current (pack per day) - Reported 00:00:00 2017-01-08 00:00:00 [place] Cigarette pack-years 2017-01-08 00:00:00 2017-01-08 00:00:00 [place] Alcohol intake 2017-01-08 00:00:00 2017-01-08 00:00:00 Current non-drinker of alcohol (finding) [place] [place] Alcohol Comment 2016-05-30 00:00:00 2016-05-30 00:00:00 social [place] Smoking Status Start Date Stop Date Source Former smoker 2017-01-08 00:00:00 2017-01-08 00:00:00 [place] Medications Ordered Medication Name Filled Medication Name Start Date Stop Da te Current Medication? Ordering Clinician Indication Dosage Frequency Signature (SIG) Comments Components Source cyanocobalamin 1,000 mcg/mL injection 2018-12-25 00:00:00 Y es USE 1 ML DIRECTED IN THE MUSCLE EVERY MONTH [facility] [place] pantoprazole (PROTONIX) 40 MG EC tablet 2018-01-16 00:00:00 Yes TAKE 1 TABLET(40 MG) BY MOUTH DAILY Kody Contreras ethodist sucralfate (CARAFATE) 1 gram tablet 2017-09-08 00:00:00 Yes TAKE 1 TABLET BY MOUTH FOUR TIMES DAILY [place] cyanocobalamin 1,000 mcg/mL injection 2017-07-16 00:00 :00 2018-12-25 00:00:00 No USE 1 ML DIRECTED IN THE MUSCLE EVERY MONTH [place] [place] ALPRAZolam (XANAX) 1 MG tablet 2017-01-21 16:38:14 Yes 1mg Q.5D Take 1 mg by mouth 2 (two) times a day. [place] [place] calcium citrate-vitamin D3 (CITRACAL+D) 315-200 mg-unit per tablet 2017-01-21 16:38:14 Yes 1{tbl} QD Take 1 tablet by mouth every morning. [place] [place] FOLIC ACID/MULTIVIT-MIN/LUTEIN (CENTRUM SILVER ORAL) 2 16:38:14 Yes 1{tbl} QD Take 1 tablet by mouth every morning. [facility] [place] DULoxetine (CYMBALTA) 60 MG capsule 2016-12-13 00:00:00 Yes 60mg Q.5D Take 60 mg by mouth 2 (two) times a day. [place] [place] cyanocobalamin, vitamin B-12, 1,000 mcg tablet, sublingual 2016-10-29 00:00:[address] 1,000 mcg under the tongu e daily. [place] [place] cyanocobalamin injection 1,000 mcg 2016-09-03 19:15:00 Y es [id number] 1000ug Kody cooper traZODone (DESYREL) 50 MG tablet 2016-07-03 00:00:00 Yes 50mg QD Take 50-100 mg by mouth nightly. Kody mortensen Duloxetine Hcl (Cymbalta) 30 Mg Capsule. Duloxetine Hcl (Cymbalta) 30 Mg Capsule.dr Gongora [address] [facility] Eszopiclone (Lunesta) 3 Mg Tablet Eszopiclone (Lunesta) 3 Mg Tablet Yes [address] [facility] Lorazepam (Ativan) 1 Mg Tablet Lorazepam (Ativan) 1 Mg Tablet Yes 1 Daily [facility] Pantoprazole Sodium (Protonix) 40 Mg Tablet. Pantopr azole Sodium (Protonix) 40 Mg Tablet.dr Gongora [address] [facility] Tramadol Hcl (Ultram) 50 Mg Tablet Tramadol Hcl (Ultram) 50 Mg Tablet Yes 50 Four Times Daily as needed for Pain [facility] Immunizations Ordered Immunization Name Filled Immunization Name Date Status Comments Source FLUCELVAX QUAD PF 2016-10-24 00:00:00 Completed [place] [place] Procedures Procedure Date / Time Performed Performing Clinician [facility] e EXCISION OF MIDDLE ESOPHAGUS, ENDO, DIAGN 2019-01-25 00:00:[address] [facility] X-ray of chest, two views 2019-01-12 00:00:00 LORI PAULSON [facility] Plan of Care Planned Activity Planned Date Details Comments Source Future Scheduled Test 2019-09-11 00:00:00 INFLUENZA VACCINE [code = INFLUENZA VACCINE] [facility] [place] Future Scheduled Test 1993 00:00:00 Screening for berta gnant neoplasm of cervix (procedure) [code = 041429848] Kody apple Encounters Start Date/Time End Date/Time Encounter Type Admission Type Attendi [facility] Facility Care Department Encounter ID Source 2019-02-13 14:19:00 2019-02-15 16:35:00 Discharged Inpatient (obs) 9 BUCK MASCORRO [facility] [id number] [facility] 2019-01-26 13:58:00 2019-01-28 14:30:00 Discharged Inpatient [facility] [id number] [facility] 2019-01-12 16:07:00 2019-01-12 18:03:00 Departed Emergency Room 1 SANDRA GORDON [facility] [id number] [facility] 2017-02-03 07:32:00 2017-02-03 10:46:00 GASTROPARESIS LAYTON ASHLEIGH [facility] [id number] Results Test Description Test Time Test Comments Results Result Comments Source COLON 2019-06-21 12:17:00 RUN DATE: 06/21/19 [facility] PAGE 1 RUN TIME: 1218 Specimen Inquiry RUN USER: INTERFACE PATIENT: RIGO ALLEN LOC: KASSANDRA #: [id number] AGE/SX: 49/F ROOM: 3027 RE06/17/19REG DR: Theo Christie MD : 74 BED: A DIS: 06/18/19 STATUS: DIS IN TLOC: SPEC #: [id number] RECD: 06/18/19 STATUS: YAMILE WALTER #: [id number] GERSON: 06/18/19- SUBM DR: Theo Christie MD ENTERED: 06/18/19 SP TYPE: COLON OTHR DR: No Primary or Family Physician Faustino Rodriguez MDORDERED: GROSS/2 COPIES TO: No Primary or Family Physician Theo Christie MD [address] [place] [address] Faustino Rodriguez MD [address] [place] [address] PROCEDURES: MONA (06/18/19) TISSUES: 1. TERMINAL ILEUM - BX 2. COLON, NOS - RANDOM BX 3. SIGMOID COLON - BX CLINICAL HISTORY COLLECTION DATE: 06/17/19 ABDOMINAL PAIN FINAL DIAGNOSIS Terminal ileum, biopsy: SMALL INTESTINAL MUCOSA, NO PATHOLOGIC ALTERATION Colon, random biopsy: COLONIC MUCOSA, NO PATHOLOGIC ALTERATION NEGATIVE FOR FEATURES OF MICROSCOPIC COLITIS Sigmoid colon, polyp, biopsy: HYPERPLASTIC POLYP(S) NEGATIVE FOR MALIGNANCY DMW/gm D CONTINUED ON NEXT PAGE RUN DATE: 06/21/19 [facility] PAGE 2 RUN TIME: 1218 Specimen Inquiry RUN USER: INTERFACE SPEC #: [id number] PATIENT: RIGO ALLEN #[id number] (Continued) FINAL DIAGNOSIS (Continued) [id number] MACROSCOPIC Specimen (1) is received in formalin, labeled with the patient's name, identified as "terminal ileum", and consists of light johnson biopsy tissue measuring 0.3 cm in aggregate, submitted as (1). Specimen (2) is received in formalin, labeled with the patient's name, identified as "random colon", and consists of multiple fragments of johnson biopsy tissue measuring 0.5 cm in aggregate, submitted as (2). Specimen (3) is received in formalin, labeled with the patient's name, identified as "sigmoid colon polyp", and consists of three fragments of light johnson biopsy tissue measuring 0.35 cm in aggregate, submitted as (3). GROSS PERFORMED AT [facility] [address] [place] [id number] (p)[phone] MICROSCOPIC All of the stains, including any controls performed, stain appropriately. MICROSCOPIC PERFORMED AT [facility] [address] [place] [address] (p)[phone] PERFORMING SITE Processed at: [facility] [address] [place] [address] Signed SIGNATURE ON FILE Kathy White MD 06/21/19 1217 END OF REPORT Novel Coronavirus 2019 Inhouse 2019-06-18 07:01:00 Test Item Novel Coronavirus 2019 Inhouse (test code = COVNONPUI) Negative Negative Testing Criteria: Preprocedure ScreeningNovel Coronavirus 2019 Inhouse 2019-06-18 07:00:00* Test Item Value Reference Range Interpretation Comments Novel Coronavirus 2019 Inhouse (test code = COVNONPUI) Negative Negative Testing Criteria: Preprocedure ScreeningCoronavirus 2019 nCoV Bedside 2019-06-17 14:46:00* Test Item Value Reference Range Interpretation Comments Coronavirus 2019 nCoV Bedside (test code = COVNONPUIBED) Negative BASIC METABOLIC [id number] 05:36:00* Test Item Value Reference Range Interpretation Comments SODIUM (test code = NA) 142 mmol/L 136-145 N POTASSIUM (test code = K) 4.0 mmol/L 3.5-5.1 N CHLORIDE (test code = CL) 111.0 mmol/L 98-107 H CARBON DIOXIDE (test code = CO2) 26.0 mmol/L 21-32 N ANION GAP (test code = GAP) 9.0 10-20 L GLUCOSE (test code = GLU) 101 mg/dL 74-106 N BLOOD UREA NITROGEN (test code = BUN) 6 mg/dL 7-18 L GLOMERULAR FILTRATION RATE (test code = GFR) > 60 mL/min >=60 Estimated GFR by using Modified MDRD formula.Chronic kidney disease is defined as either kidney damageor GFR <60 mL/min/1.73 m2 for >3 months. CREATININE (test code = CREAT) 0.60 mg/dL 0.55-1.02 N Note change in reference range due to change in reagent. BUN/CREATININE RATIO (test code = BUN/CREA) 10.0 10-20 N CALCIUM (test code = CA) 8.3 mg/dL 8.5-10.1 L LIPID PROFILE (CORONARY RISK)2019-06-16 05:36:00* Test Item Value Reference Range Interpretation Comments TRIGLYCERIDES (test code = TRIG) 118 mg/dL 20-150 N CHOLESTEROL (test code = CHOL) 127 mg/dL 0-200 N CHOLESTEROL/HDL RATIO (test code = CHOLHDL) 2.0 RATIO 0-4.9 N RISK ASSOCIATED WITH CHOL/HDL RATIOS: Risk Male Female1/2 AVERAGE 3.43 3.27AVERAGE 4.97 4.442X AVERAGE 9.55 7.053X AVERAGE 23.39 11.04 REFERENCE VALUE IS RELATED TO RISK LEVELS ASRECOMMENDED BY THE GALE. HEART, LUNG, AND BLOOD INST. HDL CHOLESTEROL (test code = HDL) 49 mg/dL 40-60 N LIPOPROTEIN LDL (test code = LDL) 65 mg/dL 100-129 L Reference Interval: mg/dL mmol/L Optimal <100 <2.6Near/above optimal 100-129 2.6- 3.3Borderline High 130-159 3.4-4.1High 160-189 4.1-4.9Very High >=190 >=4.9========= This LDL result is a direct measurement.========= [id number] 05:36:00* Test Item Value Reference Range Interpretation Comments MAGNESIUM (test code = MAG) 1.9 mg/dL 1.8-2.4 N BASIC METABOLIC [id number] 05:29:00* Test Item Value Reference Range Interpretation Comments SODIUM (test code = NA) 142 mmol/L 136-145 N POTASSIUM (test code = K) 4.0 mmol/L 3.5-5.1 N CHLORIDE (test code = CL) 111.0 mmol/L 98-107 H CARBON DIOXIDE (test code = CO2) mmol/L 21-32 ANION GAP (test code = GAP) 10-20 GLUCOSE (test code = GLU) mg/dL 74-106 BLOOD UREA NITROGEN (test code = BUN) mg/dL 7-18 GLOMERULAR FILTRATION RATE (test code = GFR) mL/min >=60 CREATININE (test code = CREAT) mg/dL 0.55-1.02 BUN/CREATININE RATIO (test code = BUN/CREA) 10-20 CALCIUM (test code = CA) mg/dL 8.5-10.1 LIPID PROFILE (CORONARY RISK)2019-06-16 05:29:00* Test Item Value Reference Range Interpretation Comments TRIGLYCERIDES (test code = TRIG) mg/dL 20-150 CHOLESTEROL (test code = CHOL) mg/dL 0-200 CHOLESTEROL/HDL RATIO (test code = CHOLHDL) RATIO 0-4.9 HDL CHOLESTEROL (test code = HDL) mg/dL 40-60 LIPOPROTEIN LDL (test code = LDL) mg/dL 100-129 [id number] 05:29:00* Test Item Value Reference Range Interpretation Comments MAGNESIUM (test code = MAG) mg/dL 1.8-2.4 CBC W/AUTO [id number] 05:21:00* Test Item Value Reference Range Interpretation Comments WHITE BLOOD CELL (test code = WBC) 6.6 K/mm3 4.5-12.5 N RED BLOOD CELL (test code = RBC) 3.74 mill/mm3 3.7-5.2 N HEMOGLOBIN (test code = HGB) 10.6 gram/dL 11.5-15.5 L HEMATOCRIT (test code = HCT) 32.6 % 36.0-46.0 L MEAN CELL VOLUME (test code = MCV) 87.2 fL 80-98 N MEAN CELL HGB (test code = MCH) 28.3 picogram 27.0-33.0 N MEAN CELL HGB CONCETRATION (test code = MCHC) 32.5 gram/dL 33.0-36. 0 L RED CELL DISTRIBUTION WIDTH (test code = RDW) 16.3 % 11.6-16. 2 H RED CELL DISTRIBUTION WIDTH SD (test code = RDW-SD) 51.7 fL 37 .0-51.0 H PLATELET COUNT (test code = PLT) 206 K/mm3 150-450 N MEAN PLATELET VOLUME (test code = MPV) 12.1 fL 6.7-11.0 H NEUTROPHIL % (test code = NT%) 53.0 % 39.0-69.0 N IMMATURE GRANULOCYTE % (test code = IG%) 0.2 % 0.0-5.0 N LYMPHOCYTE % (test code = LY%) 37.2 % 25.0-55.0 N MONOCYTE % (test code = MO%) 9.1 % 0.0-10.0 N EOSINOPHIL % (test code = EO%) 0.3 % 0.0-5.0 N BASOPHIL % (test code = BA%) 0.2 % 0.0-1.0 N NUCLEATED RBC % (test code = NRBC%) 0.0 % 0-0 N NEUTROPHIL # (test code = NT#) 3.50 K/mm3 1.8-7.7 N IMMATURE GRANULOCYTE # (test code = IG#) 0.01 x10 3/uL 0-0.03 N LYMPHOCYTE # (test code = LY#) 2.45 K/mm3 1.0-5.0 N MONOCYTE # (test code = MO#) 0.60 K/mm3 0-0.8 N EOSINOPHIL # (test code = EO#) 0.02 K/mm3 0.0-0.5 N BASOPHIL # (test code = BA#) 0.01 K/mm3 0.0-0.2 N NUCLEATED RBC # (test code = NRBC#) 0.00 K/mm3 0.0-0.1 N MANUAL DIFF REQUIRED (test code = MDIFF) NO LACTIC DEHYDROGENASE(LDH)2019-06-15 16:32:00* Test Item Value Reference Range Interpretation Comments LACTIC DEHYDROGENASE(LDH) (test code = LDH) 206 IUnit/L 84-246 N [id number] 16:32:00* Test Item Value Reference Range Interpretation Comments LIPASE (test code = LIP) 72 U/L 73.0-393.0 L COMPREHENSIVE METABOLIC [id number] 16:32:00* Test Item Value Reference Range Interpretation Comments SODIUM (test code = NA) 139 mmol/L 136-145 N POTASSIUM (test code = K) 4.3 mmol/L 3.5-5.1 N CHLORIDE (test code = CL) 108.0 mmol/L 98-107 H CARBON DIOXIDE (test code = CO2) 25.0 mmol/L 21-32 N ANION GAP (test code = GAP) 10.3 10-20 N GLUCOSE (test code = GLU) 136 mg/dL 74-106 H BLOOD UREA NITROGEN (test code = BUN) 7 mg/dL 7-18 N GLOMERULAR FILTRATION RATE (test code = GFR) > 60 mL/min >=60 Estimated GFR by using Modified MDRD formula.Chronic kidney disease is defined as either kidney damageor GFR <60 mL/min/1.73 m2 for >3 months. CREATININE (test code = CREAT) 0.50 mg/dL 0.55-1.02 L Note change in reference range due to change in reagent. BUN/CREATININE RATIO (test code = BUN/CREA) 14.0 10-20 N TOTAL PROTEIN (test code = PROT) 7.1 gram/dL 6.4-8.2 N ALBUMIN (test code = ALB) 3.4 g/dL 3.4-5.0 N GLOBULIN (test code = GLOB) 3.7 gram/dL 2.7-4.2 N ALBUMIN/GLOBULIN RATIO (test code = A/G) 0.9 0.75-1.50 N CALCIUM (test code = CA) 8.6 mg/dL 8.5-10.1 N BILIRUBIN TOTAL (test code = BILT) 0.50 mg/dL 0.0-1.0 N SGOT/AST (test code = AST) 25 IUnit/L 15-37 N SGPT/ALT (test code = ALT) 25 IUnit/L 12-78 N ALKALINE PHOSPHATASE TOTAL (test code = ALKP) 88 IUnit/L 45-117 N Note change in reference range due to change in reagent. CREATINE KINASE (CK)2019-06-15 16:32:00* Test Item Value Reference Range Interpretation Comments CREATINE KINASE (CK) (test code = CK) 62 IUnit/L 26-208 N [id number] 16:32:00* Test Item Value Reference Range Interpretation Comments CKMB (test code = CKMBT) < 1.0 ng/mL 0-6.0 N [id number] 16:32:00* Test Item Value Reference Range Interpretation Comments TROPONIN-I (test code = TROPI) <0.015 ng/mL 0-0.045 N COMPREHENSIVE METABOLIC [id number] 16:23:00* Test Item Value Reference Range Interpretation Comments SODIUM (test code = NA) 139 mmol/L 136-145 N POTASSIUM (test code = K) 4.3 mmol/L 3.5-5.1 N CHLORIDE (test code = CL) 108.0 mmol/L 98-107 H CARBON DIOXIDE (test code = CO2) mmol/L 21-32 ANION GAP (test code = GAP) 10-20 GLUCOSE (test code = GLU) mg/dL 74-106 BLOOD UREA NITROGEN (test code = BUN) mg/dL 7-18 GLOMERULAR FILTRATION RATE (test code = GFR) mL/min >=60 CREATININE (test code = CREAT) mg/dL 0.55-1.02 BUN/CREATININE RATIO (test code = BUN/CREA) 10-20 TOTAL PROTEIN (test code = PROT) gram/dL 6.4-8.2 ALBUMIN (test code = ALB) g/dL 3.4-5.0 GLOBULIN (test code = GLOB) gram/dL 2.7-4.2 ALBUMIN/GLOBULIN RATIO (test code = A/G) 0.75-1.50 CALCIUM (test code = CA) 8.6 mg/dL 8.5-10.1 N BILIRUBIN TOTAL (test code = BILT) mg/dL 0.0-1.0 SGOT/AST (test code = AST) IUnit/L 15-37 SGPT/ALT (test code = ALT) IUnit/L 12-78 ALKALINE PHOSPHATASE TOTAL (test code = ALKP) IUnit/L 45-117 CREATINE KINASE (CK)2019-06-15 16:23:00* Test Item Value Reference Range Interpretation Comments CREATINE KINASE (CK) (test code = CK) IUnit/L 26-208 [id number] 16:23:00* Test Item Value Reference Range Interpretation Comments CKMB (test code = CKMBT) ng/mL 0-6.0 [id number] 16:23:00* Test Item Value Reference Range Interpretation Comments TROPONIN-I (test code = TROPI) ng/mL 0-0.045 PROTHROMBIN [id number] 15:58:00* Test Item Value Reference Range Interpretation Comments PROTHROMBIN TIME PATIENT (test code = PTP) 11.5 seconds 9.0-14.0 N INTERNATIONAL NORMAL RATIO (test code = INR) 1.0 0.8-1.2 N The therapeutic range for oral anticoagulant therapy formost indications is an international normalized ratio (INR)of between 2.0 and 3.0. The recommended therapeutic INRrange for various clinical situations is listed below: Clinical Situation INR range Pulmonary e mbolism treatment (2.0-3.0)Venous thrombosis treatmentVenous thrombosis prophylaxis (high risk surgery)Prevention of systemic embolism from: Acute myocardial infarction Valvular heart disease Atrial fibrillation Mechanical prosthetic heart valves (2.5-3.5) IS PATIENT ON ANTICOAGULANTS? NTHROMBOPLASTIN TIME [id number] 15:58:00* Test Item Value Reference Range Interpretation Comments THROMBOPLASTIN TIME PARTIAL (test code = PTT) 35.7 seconds 23.0-37. 0 N IS PATIENT ON ANTICOAGULANTS? NCBC W/AUTO [id number] 15:39:00* Test Item Value Reference Range Interpretation Comments WHITE BLOOD CELL (test code = WBC) 9.1 K/mm3 4.5-12.5 N RED BLOOD CELL (test code = RBC) 4.62 mill/mm3 3.7-5.2 N HEMOGLOBIN (test code = HGB) 12.9 gram/dL 11.5-15.5 N HEMATOCRIT (test code = HCT) 40.8 % 36.0-46.0 N MEAN CELL VOLUME (test code = MCV) 88.3 fL 80-98 N MEAN CELL HGB (test code = MCH) 27.9 picogram 27.0-33.0 N MEAN CELL HGB CONCETRATION (test code = MCHC) 31.6 gram/dL 33.0-36. 0 L RED CELL DISTRIBUTION WIDTH (test code = RDW) 16.2 % 11.6-16. 2 N RED CELL DISTRIBUTION WIDTH SD (test code = RDW-SD) 52.3 fL 37 .0-51.0 H PLATELET COUNT (test code = PLT) 244 K/mm3 150-450 N MEAN PLATELET VOLUME (test code = MPV) 11.7 fL 6.7-11.0 H NEUTROPHIL % (test code = NT%) 86.0 % 39.0-69.0 H IMMATURE GRANULOCYTE % (test code = IG%) 0.4 % 0.0-5.0 N LYMPHOCYTE % (test code = LY%) 10.0 % 25.0-55.0 L MONOCYTE % (test code = MO%) 3.5 % 0.0-10.0 N EOSINOPHIL % (test code = EO%) 0.0 % 0.0-5.0 N BASOPHIL % (test code = BA%) 0.1 % 0.0-1.0 N NUCLEATED RBC % (test code = NRBC%) 0.0 % 0-0 N NEUTROPHIL # (test code = NT#) 7.80 K/mm3 1.8-7.7 H IMMATURE GRANULOCYTE # (test code = IG#) 0.04 x10 3/uL 0-0.03 H LYMPHOCYTE # (test code = LY#) 0.91 K/mm3 1.0-5.0 L MONOCYTE # (test code = MO#) 0.32 K/mm3 0-0.8 N EOSINOPHIL # (test code = EO#) 0.00 K/mm3 0.0-0.5 N BASOPHIL # (test code = BA#) 0.01 K/mm3 0.0-0.2 N NUCLEATED RBC # (test code = NRBC#) 0.00 K/mm3 0.0-0.1 N CBC W/AUTO [id number] 15:37:00* Test Item Value Reference Range Interpretation Comments WHITE BLOOD CELL (test code = WBC) K/mm3 4.5-12.5 RED BLOOD CELL (test code = RBC) mill/mm3 3.7-5.2 HEMOGLOBIN (test code = HGB) 12.9 gram/dL 11.5-15.5 N HEMATOCRIT (test code = HCT) 40.8 % 36.0-46.0 N MEAN CELL VOLUME (test code = MCV) fL 80-98 MEAN CELL HGB (test code = MCH) picogram 27.0-33.0 MEAN CELL HGB CONCETRATION (test code = MCHC) gram/dL 33.0-36. 0 RED CELL DISTRIBUTION WIDTH (test code = RDW) % 11.6-16. 2 RED CELL DISTRIBUTION WIDTH SD (test code = RDW-SD) fL 37 .0-51.0 PLATELET COUNT (test code = PLT) K/mm3 150-450 MEAN PLATELET VOLUME (test code = MPV) fL 6.7-11.0 NEUTROPHIL % (test code = NT%) % 39.0-69.0 IMMATURE GRANULOCYTE % (test code = IG%) % 0.0-5.0 LYMPHOCYTE % (test code = LY%) % 25.0-55.0 MONOCYTE % (test code = MO%) % 0.0-10.0 EOSINOPHIL % (test code = EO%) % 0.0-5.0 BASOPHIL % (test code = BA%) % 0.0-1.0 NEUTROPHIL # (test code = NT#) K/mm3 1.8-7.7 LYMPHOCYTE # (test code = LY#) K/mm3 1.0-5.0 MONOCYTE # (test code = MO#) K/mm3 0-0.8 EOSINOPHIL # (test code = EO#) K/mm3 0.0-0.5 BASOPHIL # (test code = BA#) K/mm3 0.0-0.2 UPPER GI W/SMALL [id number] 14:23:00 [place] [id number] Patient Name: RIGO ALLEN MR #: [id number] : 1970 Age/Sex: 48/F Req #: [id number] Adm Physician: BUCK MASCORRO MD Ordered by: SINA PURCELL MD Report #: [id number] Location: MED/SURG2 Room/Bed: [facility] Procedure: DX/UPPER GI W/SMALL BOW Exam Date: 02/15/19 Exam Time: 1130 REPORT STATUS: Signed Upper GI Series with Small Bowel Follow framing inspector(S): Mirella Yin MD Comparison: None. Procedure: Barium swallow and upper GI fluoro scopic images obtained with air and barium contrast in a variety of positions. Fluoroscopy Time: 0.8 minutes Total Dose: 14.8 DISCUSSION: CLARENCE T: The bowel gas pattern is non-obstructive. SWALLOW: Grossly unremarkabl e. ESOPHAGUS: Mucosa is unremarkable. Predominately primary contractions. No significant reflux. STOMACH: Status post bailey en Y gastric bypass lyndsay nic. No evidence of anastomotic leak at the gastrojejunostomy. SMALL BOW EL: Normal mucosal appearance. Small bowel loops are normal in caliber an d distribution. Terminal ileum appears unremarkable on spot compression im ages. IMPRESSION: Status post bailey en Y gastric bypass surgery. No evide nce of obstruction, ileus, or dysmotility. Signed by: Mirella Yin MD on 02/15/2019 2:26 PM Dictated By: MIRELLA YIN MD 25 Transcribed By: DILIP on 02/15/19 1426 [employer] WORK[employer] Y TO: SINA PURCELL MD ABDOMEN-1VIEW ([facility])2019-02-15 11:54:00 [place] [address] Patient Name: RIGO ALLEN MR #: [id number] : 1970 Age/Sex: 48/F Req #: [id number] Adm Physician: BUCK MASCORRO MD Ordered by: BUCK MASCORRO MD Report #: [id number] Location: MED/SURG2 Room/Bed: [facility] Procedure: 11 DX/ABDOMEN-1VIEW (KUB) Exam Date: Exam Time: REPORT STATUS: Signed Exam: KUB - 2 views Indication: Ileus Comparison: Outside abdomen and pelvis CT of 02/13/2019, KUB of 02/14/2019 Findings: Nonobstructive bowel gas pattern. U nchanged mild gaseous distention of nondilated loops of colon. No free air. Carvajal rgical clips project over the expected location of the gastroesophageal juncti on. Surgical sutures in the left abdomen. Mild degenerative changes of the spi ne and both hip joints. Impression: Nonobstructive bowel gas pattern. Signed by: Mirella Yin MD on 02/15/2019 11:56 AM Dictated By: MIRELLA YIN MD 1156 Transcribed By: KAY WHITAKER on 02/15/19 1156 COPY TO: BUCK MASCORRO MD Sodium Level 2019-02-15 06:11:00* Test Item Value Reference Range Interpretation Comments Sodium Level (test code = 2951-2) 141 136-145 [facility] HospitalPotassium Qykmx9415-17-72 06:11:00* Test Item Value Reference Range Interpretation Comments Potassium Level (test code = 2823-3) 3.8 3.5-5.1 [facility] HospitalChloride Uobcc3137-34-53 06:11:00* Test Item Value Reference Range Interpretation Comments Chloride Level (test code = 2075-0) 107 98-107 [facility] HospitalCarbon Dioxide Hglab0375-94-30 06:11:00* Test Item Value Reference Range Interpretation Comments Carbon Dioxide Level (test code = 2028-9) 26 22-29 [facility] HospitalAnion Rzn7525-57-96 06:11:00* Test Item Value Reference Range Interpretation Comments Anion Gap (test code = 73375-3) 11.8 8-16 [facility] HospitalBlood Urea Idgcndlt2049-42-62 06:11:00* Test Item Value Reference Range Interpretation Comments Blood Urea Nitrogen (test code = 3094-0) 10 7-26 [facility] HospitalCreatinine2020-01-06 06:11:00* Test Item Value Reference Range Interpretation Comments Creatinine (test code = 2160-0) 0.61 0.57-1.11 [facility] HospitalBUN/Creatinine Cwoii1397-22-43 06:11:00* Test Item Value Reference Range Interpretation Comments BUN/Creatinine Ratio (test code = 3097-3) 16 6- [facility] HospitalEstimat Glomerular Filtration Rate 2019-02-15 06:11:00* Test Item Value Reference Range Interpretation Comments Estimat Glomerular Filtration Rate (test code = 301393002) > 60 >60 Ranges were taken from the National Kidney Disease Education Program and the [facility] literature.Reference ranges:60 or greater: Aevtsx91-51 ( for 3 consecutive months): Chronic kidney disease 15 or less: Kidney failureSt. Luke's Health – [facility] HospitalGlucose Pgjdb8741-36-26 06:11:00* Test Item Value Reference Range Interpretation Comments Glucose Level (test code = RRR8024) 83 74-118 [facility] HospitalCalcium Girgh5508-75-14 06:11:00* Test Item Value Reference Range Interpretation Comments Calcium Level (test code = 12715-4) 8.6 8.4-10.2 [facility] HospitalWhite Blood Ffras9446-25-64 05:34:00* Test Item Value Reference Range Interpretation Comments White Blood Count (test code = 6690-2) 5.74 4.8-10.8 [facility] HospitalRed Blood Ympnu4947-38-08 05:34:00* Test Item Value Reference Range Interpretation Comments Red Blood Count (test code = 789-8) 3.69 3.6-5.1 [facility] HospitalHemoglobin2020-01-06 05:34:00* Test Item Value Reference Range Interpretation Comments Hemoglobin (test code = 62477-3) 10.4 12.0-16.0 [facility] HospitalHematocrit2020-01-06 05:34:00* Test Item Value Reference Range Interpretation Comments Hematocrit (test code = 4544-3) 34.0 34.2-44.1 [facility] HospitalMean Corpuscular Ujlrpb3784-47-21 05:34:00* Test Item Value Reference Range Interpretation Comments Mean Corpuscular Volume (test code = 787-2) 92.1 81-99 [facility] HospitalMean Corpuscular Lfmiportuc0863-82-48 05:34:00* Test Item Value Reference Range Interpretation Comments Mean Corpuscular Hemoglobin (test code = 785-6) 28.2 28-32 [facility] HospitalMean Corpuscular Hemoglobin Concent 2019-02-15 05:34:00* Test Item Value Reference Range Interpretation Comments Mean Corpuscular Hemoglobin Concent (test code = 786-4) 30.6 31-35 [facility] HospitalRed Cell Distribution Yswfo8339-53-33 05:34:00* Test Item Value Reference Range Interpretation Comments Red Cell Distribution Width (test code = 00890-7) 15.2 11.7 -14.4 [facility] HospitalPlatelet Ymaty3567-30-52 05:34:00* Test Item Value Reference Range Interpretation Comments Platelet Count (test code = 777-3) 227 140-360 [facility] HospitalNeutrophils (%) (Auto)2019-02-15 05:34:00 * Test Item Value Reference Range Interpretation Comments Neutrophils (%) (Auto) (test code = 74186-8) 44.8 38.7-80.0 [facility] HospitalLymphocytes (%) (Auto)2019-02-15 05:34:00 * Test Item Value Reference Range Interpretation Comments Lymphocytes (%) (Auto) (test code = 736-9) 46.7 18.0-39.1 [facility] HospitalMonocytes (%) (Auto)2019-02-15 05:34:00* Test Item Value Reference Range Interpretation Comments Monocytes (%) (Auto) (test code = 5905-5) 7.0 4.4-11.3 [facility] HospitalEosinophils (%) (Auto)2019-02-15 05:34:00 * Test Item Value Reference Range Interpretation Comments Eosinophils (%) (Auto) (test code = 713-8) 1.2 0.0-6.0 [facility] HospitalBasophils (%) (Auto)2019-02-15 05:34:00* Test Item Value Reference Range Interpretation Comments Basophils (%) (Auto) (test code = 706-2) 0.3 0.0-1.0 [facility] HospitalIM GRANULOCYTES %2019-02-15 05:34:00* Test Item Value Reference Range Interpretation Comments IM GRANULOCYTES % (test code = IM GRANULOCYTES %) 0.0 0.0- 1.0 [facility] HospitalNeutrophils # (Auto)2019-02-15 05:34:00* Test Item Value Reference Range Interpretation Comments Neutrophils # (Auto) (test code = 751-8) 2.6 2.1-6.9 [facility] HospitalLymphocytes # (Auto)2019-02-15 05:34:00* Test Item Value Reference Range Interpretation Comments Lymphocytes # (Auto) (test code = 82386-7) 2.7 1.0-3.2 [facility] HospitalMonocytes # (Auto)2019-02-15 05:34:00* Test Item Value Reference Range Interpretation Comments Monocytes # (Auto) (test code = 742-7) 0.4 0.2-0.8 [facility] HospitalEosinophils # (Auto)2019-02-15 05:34:00* Test Item Value Reference Range Interpretation Comments Eosinophils # (Auto) (test code = 711-2) 0.1 0.0-0.4 [facility] HospitalBasophils # (Auto)2019-02-15 05:34:00* Test Item Value Reference Range Interpretation Comments Basophils # (Auto) (test code = 704-7) 0.0 0.0-0.1 [facility] HospitalAbsolute Immature Granulocyte (auto 2019-02-15 05:34:00* Test Item Value Reference Range Interpretation Comments Absolute Immature Granulocyte (auto (harshad t code = Absolute Immature Granulocyte (auto) 0 0-0.1 [facility]2019-02-14 09:48:00 [facility] [address] [place] [address] Patient Name: RIGO ALLEN MR #: [id number] : 1970 Age/Sex: 48/F Req #: [id number] Adm Physician: BUCK MASCORRO MD Ordered by: BUCK MASCORRO MD Report #: [id number] Location: MED/SURG2 Room/Bed: [facility] Procedure: 0105-00 07 DX/ABDOMEN-1VIEW ([facility]) Exam Date: 02/14/19 Exam T megan: 0830 REPORT STATUS: Signed EXAM: Abdomen 2 Views INDICATION: illeus [id number] COMPAR ALCON: None FINDINGS: Mild gaseous distention of bowel loops, mostly the large bowel. Rectal air is visualized. No signs of pneumoperitoneum. Norm al colonic stool burden. Suspected hepatomegaly. Clear lung bases. No acut e osseous abnormality. Degenerative changes of lumbar spine. IMPRESSION: 1. Mild gaseous distention of bowel loops, mostly large bowel, could represe nt mild ileus. Recommend follow-up as clinically indicated. Signed by: Dr Dereck Rivera MD on 02/14/2019 9:50 AM Dictated By: MAURY RIVERA MD El ectronically Signed By: MAURY RIVERA MD on 02/14/19949 Transcribed By: CIERRA PALMA on 02/14/19949 COPY TO: BUCK MASCORRO MD Free Thyroxine Pykld5237-01-72 16:40:00* Test Item Value Reference Range Interpretation Comments Free Thyroxine Index (test code = 34622-6) 2.1673 1.4-3.8 [facility] HospitalThyroxine (T4)2019-02-13 16:40:00* Test Item Value Reference Range Interpretation Comments Thyroxine (T4) (test code = 3026-2) 7.51 4.5-10.9 Our current method for Total T4 is not recommended for use as the only marker fo r evaluating patients for thyroid disorders.[facility] HospitalTriiodothyronine (T3) Ncyibk1515-47-14 16:40:00* Test Item Value Reference Range Interpretation Comments Triiodothyronine (T3) Uptake (test code = 3050-2) 28.86 22.5 -37.0 [facility] HospitalThyroid Stimulating Hormone (TSH) 2019-02-13 16:40:00* Test Item Value Reference Range Interpretation Comments Thyroid Stimulating Hormone (TSH) (test code = 21378-3) 0.683 0.350-4.940 [facility] HospitalAmylase Bqkzt3671-55-03 16:30:00* Test Item Value Reference Range Interpretation Comments Amylase Level (test code = 1798-8) 43 25-125 [facility] HospitalLipase2020-01-04 16:30:00* Test Item Value Reference Range Interpretation Comments Lipase (test code = 3040-3) 6 8-78 [facility] HospitalDifferential Total Cells Counted 2019-01-27 12:05:00* Test Item Value Reference Range Interpretation Comments Differential Total Cells Counted (test code = Differen tial Total Cells Counted) 100 [facility] HospitalNeutrophils % (Manual)2019-01-27 12:05:00 * Test Item Value Reference Range Interpretation Comments Neutrophils % (Manual) (test code = 13369-5) 46 40-74 [facility] HospitalLymphocytes % (Manual)2019-01-27 12:05:00 * Test Item Value Reference Range Interpretation Comments Lymphocytes % (Manual) (test code = 737-7) 41 19-48 [facility] HospitalMonocytes % (Manual)2019-01-27 12:05:00* Test Item Value Reference Range Interpretation Comments Monocytes % (Manual) (test code = 744-3) 8 3.4-9.0 [facility] HospitalReactive Macgevcezii1347-30-53 12:05:00* Test Item Value Reference Range Interpretation Comments Reactive Lymphocytes (test code = 56695-5) 5 [facility] HospitalPlatelet Cdjkidnc7603-04-93 12:05:00* Test Item Value Reference Range Interpretation Comments Platelet Estimate (test code = 21743-8) ADEQUATE [facility] HospitalPlatelet Morphology Nwwcufd5056-39-69 12:05:00* Test Item Value Reference Range Interpretation Comments Platelet Morphology Comment (test code = 35001-5) NORMAL [facility] HospitalRed Cell Morphology Iesalxd2875-50-11 12:05:00* Test Item Value Reference Range Interpretation Comments Red Cell Morphology Comment (test code = 6742-1) NORMAL [facility] HospitalBedside Eiwfosv4349-58-55 15:50:00* Test Item Value Reference Range Interpretation Comments Bedside Glucose (test code = 10329-6) 90 70-120 Meter ID: [id number] [facility] HospitalUrine IGF3080-09-53 06:45:00* Test Item Value Reference Range Interpretation Comments Urine WBC (test code = 5821-4) 0-5 0-5 [facility] HospitalUrine JBF3699-31-60 06:45:00* Test Item Value Reference Range Interpretation Comments Urine RBC (test code = 14030-3) 0-5 0-5 [facility] HospitalUrine Xdqrwdlb8465-31-92 06:45:00* Test Item Value Reference Range Interpretation Comments Urine Bacteria (test code = 84058-1) MANY NONE [facility] HospitalUrine Epithelial Zcprk9037-94-85 06:45:00 * Test Item Value Reference Range Interpretation Comments Urine Epithelial Cells (test code = 59217-3) MANY NONE [facility] HospitalUrine Calcium Oxalate Iwbnnqfj8749-44-36 06:45:00* Test Item Value Reference Range Interpretation Comments Urine Calcium Oxalate Crystals (test code = 5774-5) MANY FE W [facility] Scjxc1738-54-48 06:45:00* Test Item Value Reference Range Interpretation Comments Urine Mucus (test code = 8247-9) MODERATE RARE [facility] HospitalUrine Iwwui4053-02-56 06:26:00* Test Item Value Reference Range Interpretation Comments Urine Color (test code = 5778-6) YELLOW YELLOW [facility] HospitalUrine Jatgdwf4608-39-64 06:26:00* Test Item Value Reference Range Interpretation Comments Urine Clarity (test code = 81530-9) HAZY CLEAR [facility] HospitalUrine Specific Jphymyn7944-04-97 06:26:00 * Test Item Value Reference Range Interpretation Comments Urine Specific [place] (test code = 5811-5) 1.030 1.010-1.02 5 [facility] rX6635-87-70 06:26:00* Test Item Value Reference Range Interpretation Comments Urine pH (test code = 30075-0) 6 5-7 [facility] Leukocyte Tjckxokq3782-35-55 06:26:00* Test Item Value Reference Range Interpretation Comments Urine Leukocyte Esterase (test code = 5799-2) NEGATIVE NEGATIVE [facility] Asybdkl8460-85-16 06:26:00* Test Item Value Reference Range Interpretation Comments Urine Nitrite (test code = 85257-1) NEGATIVE NEGATIVE [facility] HospitalUrine Mqplcpz6639-80-03 06:26:00* Test Item Value Reference Range Interpretation Comments Urine Protein (test code = 5804-0) NEGATIVE NEGATIVE [facility] HospitalUrine Glucose (UA)2019-01-26 06:26:00* Test Item Value Reference Range Interpretation Comments Urine Glucose (UA) (test code = 2349-9) NEGATIVE NEGATIVE [facility] HospitalUrine Cznbdca4121-20-40 06:26:00* Test Item Value Reference Range Interpretation Comments Urine Ketones (test code = 47971-9) 2+ NEGATIVE [facility] Vgyfnnnbsdat5232-70-94 06:26:00* Test Item Value Reference Range Interpretation Comments Urine Urobilinogen (test code = 20992-6) 0.2 0.2-1 [facility] HospitalUrine Ybrfrgcxw5522-92-03 06:26:00* Test Item Value Reference Range Interpretation Comments Urine Bilirubin (test code = 1978-6) NEGATIVE NEGATIVE [facility] HospitalUrine Voisq8512-11-59 06:26:00* Test Item Value Reference Range Interpretation Comments Urine Blood (test code = 71580-2) NEGATIVE NEGATIVE [facility] HospitalPhosphorus Wbuoe9132-38-93 08:57:00* Test Item Value Reference Range Interpretation Comments Phosphorus Level (test code = TLY6119) 2.7 2.3-4.7 [facility] HospitalMagnesium Hhotk0644-75-24 08:57:00* Test Item Value Reference Range Interpretation Comments Magnesium Level (test code = 61546-7) 1.8 1.3-2.1 [facility] HospitalBlood Ooqetfh7551-04-55 17:05:00* Test Item Value Reference Range Interpretation Comments Blood Culture (test code = 25418709) NO GROWTH AFTER 5 DAYS, FINAL REPORT [facility] HospitalInfluenza Virus Types A,B Antigen 2019-01-12 17:30:00* Test Item Value Reference Range Interpretation Comments Influenza Virus Types A,B Antigen (test code = 55845-1) NEGATIVE NEGATIVE [facility] HospitalCHEST 2 FYBVG3032-71-94 17:30:00 [place] [address] Patient Name: RIGO ALLEN MR #: [id number] : 1970 Age/Sex: 48/F Req #: [id number] Adm Physician: Ordered by: LORI PAULSON RESIDENTIAL MENT[employer] HE[employer] WORKER Report #: [id number] Location: ER Room/Bed: Procedure: 1203-006 6 DX/CHEST 2 VIEWS Exam Date: 01/12/19 Exam Time: 17 20 REPORT STATUS: Signed EXAM: CHEST 2 VIEWS DATE: 01/12/2019 4:27 PM INDICATION: Head/neck pain COMPARISON: None FINDINGS: The trachea is midline. The lungs are symme trically expanded without evidence for large focal consolidation, pneumothorax , or significant pleural effusion. The cardiomediastinal silhouette and pul monary vasculature are within normal limits. No acute osseous abnormality is i dentified. The surrounding soft tissues are unremarkable. IMPRESSION: No acute cardiopulmonary process identified. Signed by: Dr. Erich shin MD on 01/12/2019 5:31 PM Dictated By: ERICH ADAIR MD 30 Transcribed By: DILIP on 01/12/191730 COPY TO: LORI PAULSON RESIDENTIAL MENTAL HEALTH WORKER Total Nectluglm2346-23-16 17:18:00* Test Item Value Reference Range Interpretation Comments Total Bilirubin (test code = 1975-2) 0.4 0.2-1.2 [facility] HospitalAspartate Amino Transf (AST/SGOT) 2019-01-12 17:18:00* Test Item Value Reference Range Interpretation Comments Aspartate Amino Transf (AST/SGOT) (test code = Aspartate Amino Transf (AST/SGOT)) 16 5-34 [facility] HospitalAlanine Aminotransferase (ALT/SGPT) 2019-01-12 17:18:00* Test Item Value Reference Range Interpretation Comments Alanine Aminotransferase (ALT/SGPT) (test code = 1742-6) 12 0-55 [facility] HospitalTotal Pixtqbf2276-78-36 17:18:00* Test Item Value Reference Range Interpretation Comments Total Protein (test code = 2885-2) 6.9 6.5-8.1 [facility] HospitalAlbumin2019-12-03 17:18:00* Test Item Value Reference Range Interpretation Comments Albumin (test code = 1751-7) 3.8 3.5-5.0 [facility] HospitalGlobulin2019-12-03 17:18:00* Test Item Value Reference Range Interpretation Comments Globulin (test code = 34487-6) 3.1 2.3-3.5 [facility] HospitalAlbumin/Globulin Jdzga2487-18-89 17:18:00 * Test Item Value Reference Range Interpretation Comments Albumin/Globulin Ratio (test code = 1759-0) 1.2 0.8-2.0 [facility] HospitalAlkaline Znmmzqenmyf7540-20-09 17:18:00* Test Item Value Reference Range Interpretation Comments Alkaline Phosphatase (test code = 6768-6) 96 40-150 [facility] HospitalGroup A Streptococcus Mkmjyv4422-59-15 17:12:00* Test Item Value Reference Range Interpretation Comments Group A Streptococcus Screen (test code = 60153-2) NEGATIVE NEG ATIVE [facility] HospitalURINALYSIS WITH MJHHSPZTWWS6309-06-38 10:53:00* Test Item Value Reference Range Interpretation Comments Color (test code = UCOLR) YELLOW Clarity (test code = UCLAR) CLEAR Glucose (test code = UGLUC) NEGATIVE NEGATIVE N Bilirubin (test code = UBILI) NEGATIVE NEGATIVE N Ketones (test code = UKET) >=80 NEGATIVE A Specific [place] (test code = USPGR) >=1.030 1.005-1.030 A Blood (test code = UBLD) NEGATIVE NEGATIVE N PH (test code = UPH) 6.0 4.5-8.0 A Protein (test code = UPROT) 30 NEGATIVE A Urobilinogen (test code = U UROB) 0.2 >0.2 N Nitrite (test code = UNITR) NEGATIVE NEGATIVE N Leukocyte Esterase (test code = ULEUK) NEGATIVE NEGATIVE N WBC (test code = WBCUR) 0-1 0-5 A RBC (test code = RBCUR) 0-1 0-5 A Epithial Cells (test code = U EPI) 30-40 0-10 A Mucous (test code = UMUC) Small None Seen A Bacteria (test code = UBACT) None Seen None Seen,Trace N Crystals Urine (test code = URCRYS) Few Amorphous Urates None Seen A Urine Casts (test code = UR CAST) None Seen None Seen N XR ABD SERIES W/PA [id number] 09:57:04Procedure: XR ABD SERIES W/PA CXRExam Date: 02/03/2017 8:03 AMOrdering Provider: ASHLEIGH SORENSENlinical Indication: ABD PAIN: Pain- AbdominalComparison: NoneFindings:Upright chest x-ray:Cardiac size is normal.Pulmonary vasculature is normal.Mediastinal and aortic contour normal.There is no consolidation or effusion.Flat and upright abdomen:There is no small or large bowel distention.There is no pneumoperitoneum.There are no suspicious calcifications.There is no acute skeletal abnormality.Impression:1. Negative three-view chest and abdomen.This final report was electronically signed by Dr Santosh Blackburn MD 02/03/20179:50 AMDictated By: SANTOSH BLACKBURNDate: 02/03/2017 09:39DRHULWEOO5860-23-65 09:02:00* Test Item Value Reference Range Interpretation Comments Magnesium (test code = MG) 1.8 mg/dl 1.6-2.3 LIPASE, MSPXG6872-62-86 09:02:00* Test Item Value Reference Range Interpretation Comments Lipase (test code = LIPA) 24 U/L 8-223 SUC9417-91-82 09:02:00* Test Item Value Reference Range Interpretation Comments Glucose (test code = GLU) 142 mg/dl 75-110 H BUN (test code = BUN) 7.0 mg/dl 6.0-17.0 Creatinine (test code = CREA) 0.5 mg/dl 0.4-1.2 Sodium (test code = NA) 143 mmol/l 137-145 Potassium (test code = K) 4.2 mmol/l 3.5-5.0 Chloride (test code = CL) 105 mmol/l 98-107 CO2 (test code = CO2) 25 mmol/l 22-30 Calcium (test code = CALC) 10.0 mg/dl 8.4-10.2 T Protein (test code = TP) 7.2 gm/dl 5.1-8.7 Albumin (test code = ALB) 4.3 gm/dl 3.5-4.6 A/G Ratio (test code = AGRAT) 1.5 % 1.1-2.2 AST (SGOT) (test code = AST) 24 U/L 11-36 ALT (SGPT) (test code = ALT) 39 U/L 11-40 Alkaline Phos (test code = ALKP) 95 U/L 47-114 Total Bilirubin (test code = TBIL) 0.6 mg/dl 0.2-1.2 Globulin (test code = GLOBU) 2.9 gm/dl 2.3-3.5 Calcium, Corrected (test code = CALCCORR) 9.8 mg/dl 8.4-10.2 Various formulas exist for corrected serum calcium results, each yielding different values. This corrected result was based on the formula: Corrected Calcium = SerumCalcium + [0.8 * ( 4 - SerumAlbumin)] EGFR if (test code = EGFRAA) >60 mL/min/1.73m\\S\\2 EGFR if Non- (test code = EGFRNA) >60 mL/min/1.73m\\ S\\2 Estimated Glomerular Filtration Rate (eGFR) Reference Intervals Decision Points for 18 years and older and average body mass: >= 60 Does not exclude kidney disease. 30 - 59 Suggests moderate chronic kidney disease and indicates the need for further investigation including assessment of proteinuria and cardiovascular factors. < 30 Usually indicates a need for referral for assessment and management of chronic kidney failure. CBC WITH AUTO [id number] 08:22:00* Test Item Value Reference Range Interpretation Comments WBC (test code = WBC) 6.83 10\\S\\3/ul 4.80-10.80 RBC (test code = RBC) 4.73 10\\S\\6/ul 4.20-5.40 Hemoglobin (test code = HGB) 13.5 gm/dl 12.0-14.0 Hematocrit (test code = HCT) 41.6 % 37.0-47.0 MCV (test code = MCV) 87.9 fL 81.0-99.0 MCH (test code = MCH) 28.5 pg 27.0-31.0 MCHC (test code = MCHC) 32.5 gm/dl 33.0-37.0 L RDW (test code = RDWVC) 13.7 % 11.5-14.5 Platelet (test code = PLT) 240 10\\S\\3/ul 130-400 MPV (test code = MPV) 12.2 fL 7.4-10.4 A "NOT M EASURED" RESULTS ARE DISPLAYED WHEN THE INSTRUMENT HAS [...] BE NOTED ON THE REPORT. NE% (test code = NE) 82.2 % 42.0-75.0 H LY% (test code = LY) 13.9 % 13.0-42.0 MO% (test code = MO) 3.4 % 4.0-14.0 L EO% (test code = EO) 0.0 % 1.0-3.0 L BA% (test code = BA) 0.1 % 1.0-3.0 L IG% (test code = IG%) 0.4 % 0.0-0.4 AUTO DIFFMAMMOGRAPHY DIGITAL SCR BILAT [place] [address] Patient Name: RIGO ALLEN MR #: [id number] : 1970 Age/Sex: 46/F Req #: [id number] [facility] Physician: Ordered by: FLORENCE CHILD MD Report #: [id number] Location: MAMMO Room/Bed: Procedure: [id number] MG/MAMMOGRAPHY DIGITAL S CR BILAT Exam Date: 12/03/16 Exam Time: 0913 R EPORT STATUS: Signed #[id number] - [id number] #BILATERAL DIGITAL SCREEN ING MAMMOGRAM WITH CAD: 12/03/2016 CLINICAL: Routine screening. Compari son is made to exams dated: 04/02/2013 mammogram - [facility] and 07/21/2009 mammogram - [facility]. Current study con tains 4 [...] be notified by letter of the results. Rafael basurto/vic:12/14/2016 11:24:35 Generator Worker: Agnieszka COLON(R)(M), [facility] letter sent: Compared to Prior B9 Mammogram BI-RADS: 2 Benign Dictated By: RAFAEL FARFAN DO 1124 Transcribed By: VIC on 12/14/16 1124 COPY TO: FLORENCE CHILD MD
[2019-06-26] MEDS ORDERED: SODIUM CHLORIDE 0.9% 1000ML 1,000 ML IV STA (17:05)
[2019-06-26] MEDS ORDERED: CEFTRIAXONE SOD 1 GM/NS 50 ML 50 ML IV STA (17:05)
[2019-06-26] MEDS ORDERED: KETOROLAC TROMETHAMINE 30 MG/ML VIAL IV NR ×2 (17:05→20:00)
[2019-06-26] MEDS ORDERED: ONDANSETRON HCL INJ 2MG/ML 2ML 2 MG/ML VIAL IV NR ×2 (17:05→20:00)
[2019-06-26 17:37] LABS: BASOPHILS % 0.3 % (0.0-1.0); EOSINOPHILS # (AUTO) 0.1 (0.0-0.4); EOSINOPHILS % 0.4 % (0.0-6.0); HEMOGLOBIN 11.4 g/dL (12.0-16.0); LYMPHOCYTES # (AUTO) 1.1 (1.0-3.2); LYMPHOCYTES % 8.8 % (18.0-39.1); MEAN CORPUSCULAR HEMOGLOBIN 27.5 pg (28-32); MEAN CORPUSCULAR HGB CONC 31.7 g/dL (31-35); NEUTROPHILS # (AUTO) 10.6 (2.1-6.9); PLATELET COUNT 256 x10e3/uL (140-360); RED BLOOD COUNT 4.14 x10e6/uL (3.6-5.1); RED CELL DISTRIBUTION WIDTH 16.2 % (11.7-14.4)
--- NOTE | 2019-06-26 17:42 | Emergency Department Note ---
History of Present Illnes History of Present Illness Chief Complaint: Abdominal Complaints History of Present Illness This is a 49 year old female . c/o r flank pain radiating to rlq dysura ua frequency REPORTS URINARY FREQUENCY AND PAIN TO RLQ AND CENTER OF BACK. PT WAS ADMITTED AND TREATED FOR COLITIS LAST WEEK at [place]. HAS BEEN HAVING PAIN FOR THE LAST [address] MARIANO SENT PATIENT FOR ADMISSION THROUGH ER, CLIENT ALSO REPORTS THAT SHE HAD OXALATE CRYSTALS IN URINE Historian: Patient Arrival Mode: Car Radiation: non-radiation, abdomen, flank Severity: moderate Onset quality: gradual Duration (how long): day(s) (3 days) Timing of current episode: constant Progression: worsening Context: recent illness Relieving factors: none Exacerbating factors: none Associated symptoms: other (dysuria nausea) Treatments prior to arrival: none (LORI PAULSON NP) Past Medical/Family History Physician Review I have reviewed the patient's past medical and family history. Any updates have been documented here. (LORI PAULSON NP) Past Medical History Recent Fever: No Clinical Suspicion of Infectio: No New/Unexplained Change in Ment: No Past Medical History: Anxiety, Depression Other Medical History: GASTRITIS, DISTAL ESOPHAGITIS Past Surgical History: Cholecysctectomy, Hysterectomy, T&A, Bariatric Surgery Other Surgery: GASTRIC SLEEVE, TONSILECTOMY (LORI PAULSON NP) Social History Smoking Cessation: Never Smoker Alcohol Use: None Any Illegal Drug Use: No TB Exposure/Symptoms: No (LORI PAULSON NP) Family History Family history of heart diseas: No (LORI PAULSON NP) Other Any Pre-Existing Lines (PICC,: No (LORI PAULSON NP) Review of Systems Review of Systems Constitutional: no symptoms EENTM: no symptoms Cardiovascular: no symptoms Respiratory: no symptoms Gastrointestinal: abdominal pain (r flank pain rlq pain ), nausea Genitourinary: dysuria, frequency Musculoskeletal: other (r cva tenderness) Neurological: no symptoms Psychological: no symptoms Endocrine: no symptoms Hematological/Lymphatic: no symptoms Review of other systems All other systems reviewed and negative. (LORI PAULSON NP) Physical Exam Related Data Allergies: Coded Allergies: morphine (Verified Allergy, Unknown, 01/24/19) Triage Vital Signs Vital Signs Date Time Temp Pulse Resp B/P (MAP) Pulse Ox O2 Delivery O2 Flow Rate FiO2 06/26/19 17:02 99.3 87 16 117/64 98 (LORI PAULSON POLYGRAPH TECHNICIAN) Physical Exam CONSTITUTIONAL Constitutional: well-developed HENT HENT: normocephalic, atraumatic, oropharynx clear/moist, nose normal HENT L/R: left ext ear normal, right ext ear normal EYES Eyes: conjunctivae normal, EOM normal NECK Neck: ROM normal PULMONARY Pulmonary: effort normal, breath sounds normal CARDIOVASCULAR Cardiovascular: regular rhythm, heart sounds normal, capillary refill normal, normal rate GASTROINTESTINAL Abdominal: soft, bowel sounds normal, tender (rlq and r flank pain ), right CVA tenderness GENITOURINARY Genitourinary: exam deferred, other (c/o ua frequency and dysuria ) SKIN Skin: warm, dry MUSCULOSKELETAL Musculoskeletal: ROM normal NEUROLOGICAL Neurological: alert, oriented x 3, no gross motor or sensory deficits PSYCHOLOGICAL Psychological: mood/affect normal, judgement normal (LORI PAULSON POLYGRAPH TECHNICIAN) Results Laboratory Laboratory Laboratory Tests Test 06/26/19 17:12 06/26/19 17:07 White Blood Count 12.97 x10e3/uL (4.8-10.8) Red Blood Count 4.14 x10e6/uL (3.6-5.1) Hemoglobin 11.4 g/dL (12.0-16.0) Hematocrit 36.0 % (34.2-44.1) Mean Corpuscular Volume 87.0 fL (81-99) Mean Corpuscular Hemoglobin 27.5 pg (28-32) Mean Corpuscular Hemoglobin Concent 31.7 g/dL (31-35) Red Cell Distribution Width 16.2 % (11.7-14.4) Platelet Count 256 x10e3/uL (140-360) Neutrophils (%) (Auto) 82.0 % (38.7-80.0) Lymphocytes (%) (Auto) 8.8 % (18.0-39.1) Monocytes (%) (Auto) 8.0 % (4.4-11.3) Eosinophils (%) (Auto) 0.4 % (0.0-6.0) Basophils (%) (Auto) 0.3 % (0.0-1.0) Neutrophils # (Auto) 10.6 (2.1-6.9) Lymphocytes # (Auto) 1.1 (1.0-3.2) Monocytes # (Auto) 1.0 (0.2-0.8) Eosinophils # (Auto) 0.1 (0.0-0.4) Basophils # (Auto) 0.0 (0.0-0.1) Absolute Immature Granulocyte (auto 0.07 x10e3/uL (0-0.1) Sodium Level 139 mmol/L (136-145) Potassium Level 4.2 mmol/L (3.5-5.1) Chloride Level 106 mmol/L (98-107) Carbon Dioxide Level 23 mmol/L (22-29) Anion Gap 14.2 mmol/L (8-16) Blood Urea Nitrogen 12 mg/dL (7-26) Creatinine 0.73 mg/dL (0.57-1.11) Estimat Glomerular Filtration Rate > 60 ML/MIN (60-) BUN/Creatinine Ratio 16 (6-25) Glucose Level 96 mg/dL (74-118) Calcium Level 9.1 mg/dL (8.4-10.2) Total Bilirubin 0.3 mg/dL (0.2-1.2) Aspartate Amino Transf (AST/SGOT) 16 IU/L (5-34) Alanine Aminotransferase (ALT/SGPT) 16 IU/L (0-55) Alkaline Phosphatase 78 IU/L (40-150) Total Protein 6.7 g/dL (6.5-8.1) Albumin 3.6 g/dL (3.5-5.0) Globulin 3.1 g/dL (2.3-3.5) Albumin/Globulin Ratio 1.2 (0.8-2.0) Amylase Level 50 U/L (25-125) Lipase 13 U/L (8-78) Urine Color Brown (YELLOW) Urine Clarity Sl cloudy (CLEAR) Urine pH 5.5 (5 - 7) Urine Specific [place] 1.025 (1.010-1.025) Urine Protein Trace (NEGATIVE) Urine Glucose (UA) 1+ (NEGATIVE) Urine Ketones Trace (NEGATIVE) Urine Blood Negative (NEGATIVE) Urine Nitrite Positive (NEGATIVE) Urine Bilirubin Small (NEGATIVE) Urine Urobilinogen 1 mg/dL (0.2 - 1) Urine Leukocyte Esterase Negative (NEGATIVE) Laboratory Tests Test 06/26/19 17:12 Lab results reviewed: Yes Laboratory comments pt nitrite pos and r flank dx pyelo (LORI PAULSON NP) Imaging Imaging results reviewed: Yes Impressions abd ct IMPRESSION: No acute abdominal or pelvic abnormality. Signed by: Jaime Howard MD on 06/26/2019 7:25 PM (LORI PAULSON NP) Critical Care Time Subsequent provider I assumed direction of critical care for this patient from another provider of my specialty. (LORI PAULSON NP) Assessment & Plan Assessment & Plan Problems: (1) Flank pain (2) UTI (urinary tract infection) (3) Leukocytosis (4) Pyelonephritis Assessment & Plan 49 year old female . c/o r flank pain radiating to rlq dysura ua frequency r cva tenderness - sx x 3 days - sent to ed after telemed appointment w/ pcp for eval and wk up - discussed plan of care w/ Dr Villarreal - lab ct ordered pt medicated w/ ns zofran toradol rocephin Dr Villarreal in eval pt status discussed lab ct results plan of care and f/u instructions 1. follow up with your doctor Friday without fail 2. Tylenol and motrin as needed 3. increase oral fluids 4. return to ed as needed 5. omnicef pyridium (LORI PAULSON NP) Last Vital Signs Date Time Temp Pulse Resp B/P (MAP) Pulse Ox O2 Delivery O2 Flow Rate FiO2 06/26/19 17:02 99.3 87 16 117/64 98 (LORI PAULSON NP) Home Meds Reported Medications Pantoprazole Sodium* (PROTONIX) 40 Mg Tablet.dr, 40 MG PO DAILY, TAB 08/11/15 Lorazepam (ATIVAN) 1 Mg Tablet, 1 TAB PO DAILY 06/30/15 Eszopiclone (LUNESTA) 3 Mg Tablet, 3 MG PO HS 06/30/15 Duloxetine Hcl (CYMBALTA) 30 Mg Capsule.dr, 30 MG PO BID, #30 CAP 06/30/15 Tramadol Hcl (ULTRAM) 50 Mg Tablet, 50 MG PO QID PRN for PAIN, TAB 06/30/15 Medications in the ED Sodium Chloride 1,000 ml @ 0 mls/hr Q0M STAT IV ; Start 06/26/19 at 17:05; Stop 06/26/19 at 17:09; Status DC Ceftriaxone Sodium 50 ml @ 50 mls/hr ONCE STAT IV ; Start 5/16/20 at 17:05; Stop 06/26/19 at 18:04 Ondansetron HCl 4 mg ONCE IV ; Start 06/26/19 at 17:05; Stop 06/26/19 at 18:59 Ketorolac Tromethamine 30 mg ONCE IV ; Start 06/26/19 at 17:05; Stop 06/26/19 at 18:59 Phenazopyridine HCl 200 mg PC PO ; Start 06/26/19 at 18:00; Stop 07/26/19 at 17:59 (LORI PAULSON NP) Attestation Provider Attestation The patient's history, exam findings, diagnostics, and a summary of any interventions or procedures was reviewed in detail with our FLAVIO. I personally interviewed and examined the patient, and I have reviewed and agree with the HPI andexam. My personal exam shows [pt with mild right cva tenderness and mild rlq and suprapubic tenderness.]. I confirm the diagnosis as documented by the FLAVIO. I have reviewed and agree with the care plan articulated in the disposition section. (GEREMIAS VILLARREAL MD) LORI PAULSON NP June 26, 2019 17:42 GEREMIAS VILLARREAL MD June 26, 2019 19:46
[2019-06-26] MEDS ORDERED: PHENAZOPYRIDINE HCL 100 MG TAB PO SCH (18:00)
[2019-06-26 18:09] LABS: ALANINE AMINOTRANSFERASE 16 IU/L (0-55); ALBUMIN 3.6 g/dL (3.5-5.0); ALBUMIN/GLOBULIN RATIO 1.2 (0.8-2.0); ALKALINE PHOSPHATASE 78 IU/L (40-150); AMYLASE 50 U/L (25-125); ANION GAP 14.2 mmol/L (8-16); BLOOD UREA NITROGEN 12 mg/dL (7-26); BUN/CREATININE RATIO 16 (6-25); CALCIUM 9.1 mg/dL (8.4-10.2); CARBON DIOXIDE 23 mmol/L (22-29); CHLORIDE 106 mmol/L (98-107); CREATININE, SERUM 0.73 mg/dL (0.57-1.11); EST GLOMERULAR FILTRATION RATE > 60 ML/MIN (60-); GLUCOSE 96 mg/dL (74-118); LIPASE 13 U/L (8-78); POTASSIUM 4.2 mmol/L (3.5-5.1); SODIUM 139 mmol/L (136-145)
[2019-06-26 18:51] LABS: COLOR,URINE BROWN (YELLOW)
[2019-06-26 18:52] LABS: CLARITY,URINE SL CLOUDY (CLEAR); LEUKOCYTE ESTERASE ,URINE NEGATIVE (NEGATIVE); NITRITE,URINE POSITIVE (NEGATIVE); PROTEIN,URINE DIPSTICK TRACE (NEGATIVE)
[2019-06-26 18:53] LABS: BILIRUBIN,URINE SMALL (NEGATIVE); KETONES,URINE TRACE (NEGATIVE); URINE UROBILINOGEN 1 mg/dL (0.2 - 1)
[2019-06-26] MEDS ORDERED: IOPAMIDOL 370 MG/ML 200 ML INFUS..BTL INJ ONE (18:54)
[2019-06-26] MEDS ORDERED: SODIUM CHLORIDE 0.9% 50ML 50 ML ONE (18:54)
--- NOTE | 2019-06-26 19:29 | Diagnostic Imaging Report ---
EXAM: CT Abdomen and Pelvis WITH contrast INDICATION: ^r flank / r luq pain ^[id number] ^1820 COMPARISON: None. TECHNIQUE: Abdomen and pelvis were scanned utilizing a multidetector helical scanner from the lung base to the pubic symphysis after administration of IV contrast. Coronal and sagittal reformations were obtained. Routine protocol was performed. Scan was performed when during portal venous phase. IV CONTRAST: 100 mL of Isovue 370 ORAL CONTRAST: Water COMPLICATIONS: None RADIATION DOSE: Total DLP: 286 mGy*cm Estimated effective dose: (DLP x 0.015 x size factor) mSv CTDIvol has been reviewed. It is below the limits set by the Radiation Protocol Committee (RPC). Dose modulation, iterative reconstruction, and/or weight based adjustment of the mA/kV was utilized to reduce the radiation dose to as low as reasonably achievable. FINDINGS: LINES and TUBES: None. LOWER THORAX: Unremarkable HEPATOBILIARY: No focal hepatic lesions. No biliary ductal dilation. GALLBLADDER: Surgically absent. SPLEEN: No splenomegaly. PANCREAS: No focal masses or ductal dilatation. ADRENALS: No adrenal nodules KIDNEYS/URETERS: Kidneys enhance symmetrically. No hydronephrosis. Small bilateral renal cortical cysts. No stones. GI TRACT: Limited evaluation due to small amount of intraperitoneal fat. No abnormal distention, wall thickening, or evidence of bowel obstruction. Gastric bypass surgical change. Appendix is normal. PELVIC ORGANS/BLADDER: The uterus is surgically absent. The urinary bladder is unremarkable. LYMPH NODES: No lymphadenopathy. Calcified inguinal lymph nodes. VESSELS: Scattered vascular calcifications. PERITONEUM / RETROPERITONEUM: No free air or fluid. BONES: No acute abnormality. SOFT TISSUES: Unremarkable. IMPRESSION: No acute abdominal or pelvic abnormality. Signed by: Jaime Howard MD on 06/26/2019 7:25 PM
[2019-06-26 19:42] LABS: BACTERIA,URINE RARE /HPF; EPITHELIAL CELLS,URINE RARE /LPF; RBC,URINE 0-5 /HPF (0-5); WBC,URINE (MAN) 0-5 /HPF (0-5)
[2019-06-26 19:43] LABS: CALCIUM OXALATE CRYSTALS,UR MODERATE (FEW)
[2019-06-27 06:09] VITALS: BP 118/67
== END 2019-06-26 21:00 | disposition home or self-care (01) ==
LOC: ER 16:44
DX: R10.31 Right lower quadrant pain (principal); R30.0 Dysuria; M54.5 Low back pain; N39.0 Urinary tract infection, site not specified; N12 Tubulo-interstitial nephritis, not specified as acute or chronic; D72.829 Elevated white blood cell count, unspecified
CPT/HCPCS: 36415; 74177; 80053; 81001; 82150; 83690; 85025; 87086

== ENCOUNTER → 2019-08-02 | Outpatient (CLI) | payer BC ==
--- NOTE | 2019-08-02 15:28 | Diagnostic Imaging Report ---
History: Spondylosis with radiculopathy Comparison studies: None Technique: Sagittal T1, T2 and IR, axial T2 and axial gradient echo Intravenous contrast: None Findings: Alignment: Normal lordosis. No scoliosis. Cervicomedullary junction: No abnormalities. Patent foramen magnum. Soft tissues: No T2 hyperintense inflammatory changes. Spinal cord: Normal in size and signal from the foramen magnum through Vertebrae: No compression fracture, infection or marrow edema. Incidental benign T1 hyperintense hemangioma in the C2 vertebral body. No other neoplasm. Degenerative changes: Mild loss of T2 disc signal from C2 to C7. C2-C3: Patent canal and foramina. No disc herniation. C3-C4: Mild uncovertebral arthrosis without significant foraminal stenosis. Small disc bulge does not result in canal stenosis. C4-C5: Mild right foraminal stenosis due to uncovertebral arthrosis. Patent canal and left foramen. Small disc bulge does not result in canal stenosis. C5-C6: Patent neural foramina. Small disc bulge does not result in canal stenosis. C6-C7: Patent neural foramina. Small disc bulge does not result in canal stenosis. C7-T1: No abnormalities. IMPRESSION: 1. Mild degenerative changes with mild foraminal stenosis on the right at C4-C5. 2. No canal stenosis. Signed by: Dr. Nito Bonner M.D. on 08/02/2019 3:24 PM
== END ==
LOC: MRI 13:19
PROVIDERS: ATTEND Internal Medicine Endocrinology, Diabetes & Metabolism
DX: M47.22 Other spondylosis with radiculopathy, cervical region (principal); M48.02 Spinal stenosis, cervical region
CPT/HCPCS: 72141

== ENCOUNTER 2019-11-18 00:56 | Observation (INO) | payer BC ==
[~2019-11-18] VITALS: Ht 180.3 cm; Wt 75.3 kg
[2019-11-18] VITALS (8 sets, daily range): BP systolic 106–151; BP diastolic 54–76
--- NOTE | 2019-11-18 01:45 | NUR ---
REPORT VIA TELEPHONE FROM RN @ [facility], WILL BE TRANSPORTED TO [facility] VIA AMBULANCE, REPORTED PATIENT IS AOX3, C/O INTRACTABLE N/V, ABDOMEN PAIN, PHENERGAN IV GIVEN AT 0020 PRIOR TO TRANSPORT
--- OUTSIDE RECORDS SUMMARY | 2019-11-18 02:09 | XMS REPORT | Clinical Summary ---
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 GERD (gastroesophageal reflux disease) 05/21/2016 Depression 05/21/2016 Anxiety 05/21/2016 Intractable vomiting 05/16/2016 Depression 05/15/2016 Anxiety 05/15/2016 Intractable vomiting with nausea 05/14/2016 Encounters Care Team Description Date Type Specialty Frankie Heard MD 12/25/2018 Refill General Surgery Krys Nam, hardware manager Follow Up Call 12/02/2018 Documentation Weight Management after 11/17/2018 Immunizations Name Administration Dates Next Due FLUCELVAX QUAD PF 10/24/2016 Surgical History Surgery Date Site/Laterality Comments GASTRIC BANDING, 02/11/1988 - awan lap band LAPAROSCOPIC 02/09/1989 GASTROENTEROSTOMY, 05/30/2016 Abdomen/N/A Procedure: LAPAROSCOPIC REMOVAL OF AWAN BAND, ASIYA-EN-Y, LAPAROSCOPIC, LAPAROSCOPIC SUBTOTAL GAS TECTOMY WITH ASIYA EN Y WITH INTRAOPERATIVE RECONSTRUCTION AND INTRAOPE RATIVE ENDOSCOPY; ENDOSCOPY Surgeon: Frankie Heard MD; Location: [facility]; Service: General; Laterality: N/A ; Medical devices from this surgery are i n the Implants section. LAPAROSCOPIC GASTRIC Awan band BANDING HYSTERECTOMY CHOLECYSTECTOMY GASTRIC BYPASS 05/30/2016 ESOPHAGOGASTRODUODENOSCOP 06/25/2016 Esophagus/Later Pro cedure: ESOPHAGOGASTRODUODENOSCOPY (EGD); Y (EGD) al Surgeon: Dex Avitia MD; Location: [facility] END[facility]; Service: Gastroentero logy; Laterality: Lateral; LAPAROSCOPY, DIAGNOSTIC 09/05/2016 Abdomen/N/A Proced ure: LAPAROSCOPY, DIAGNOSTIC, LYSIS OF ADHESIONS; Surgeon: Frankie Heard MD; Location: [facility] OR; Service: General; Lateralit y: N/A; Medical devices from this surgery are i n the Implants section. EGD, INTRAOPERATIVE 09/05/2016 N/A Procedure: EGD, INTRAOPERATIVE; Surgeon: Frankie Heard MD; [facility]; Ser vice: General; Laterality: N/A; Medical devices from this surgery are i n the Implants section. ESOPHAGOGASTRODUODENOSCOP 10/02/2016 Esophagus/Later Pro cedure: ESOPHAGOGASTRODUODENOSCOPY (EGD); Y (EGD) al Surgeon: Marquise arroyo MD; Location: [facility] END[facility]; Service: Gastroenterology; Laterality: Lateral; Medical History Medical History Date Comments Obesity GERD (gastroesophageal reflux disease) Diverticulosis Solorzano esophagus Hiatal hernia Anesthesia NHAP/NFHAP denies cp/sob wi th activity Depression Anxiety Family History Medical History Relation Name Comments [...] Assigned at Date Recorded Not on file Last Filed Vital Signs Not on file Plan of Treatment Health Maintenance Due Date Last Done Comments CERVICAL CANCER SCREENING 1993 INFLUENZA VACCINE 09/11/2019 10/24/2016 Implants Device Identifier Shelf Expiration Date Model / Serial / L ot Implanted Type Area Manufactur er 09/09/2017 [id number] / / [id number] Kit Selnt Fibrin Humn [facility] Surgy Surgical N/A: N/A ETHICON 5ml Evicel - [id number] Implants[place] [facility]: Qty: 1 on 05/30/2016 by Frankie Anguiano MD at [facility] Surgical Wires [id number] / / [id number] Barrier Adhesion 5x6in Seprafilm - Surgical N/A: N/A GENZYME [id number] Implants; BIOSURGERY Implanted: Qty: 1 on 09/05/2016 by Expanders; Frankie Heard MD at [facility] Extenders; HOSPITAL Surgical Wires Results Not on fileafter 11/17/2018 Additional Health Concerns Last Indicated Resolved Time Infection Onset Date 10/04/2016 C.Difficile (E) 10/03/2016 Insurance Type Payer Benefit Subscriber ID Effective Phone Address Plan / Dates Group PPO BCBS BCBS [id number] 2015-[id number] CHOICE resent PPO/[place] PPO [id number] Advance Directives For more information, please contact: [phone] Patient Car Rental Clerk Explanation Type Date Recorded Advance Directives, 09/02/2016 12:26 PM Living Will and Medical Power of Framing Mill Operator Advance Directives, 06/25/2016 11:27 AM Living Will and Medical Power of Framing Mill Operator Date Inactivated Comments Code Status Date Activated 09/07/2016 10:40 PM Full Code 09/05/2016 11:21 AM Code Status decision reached by: Patient 07/24/2016 7:35 PM Full Code 07/22/2016 2:39 PM Code Status decision reached by: Patient
--- OUTSIDE RECORDS SUMMARY | 2019-11-18 02:10 | XMS REPORT | Continuity of Care Document ---
Author Author [facility] t Organization [facility] Address [address] [place] [address] Phone Unavailable Care Team Providers Care Yard Clerk Name Role Phone Aris CARMEN PCP Aris CARMEN Attphys Unavailable Adryan VILLARREAL Attphys Unavailable Najma MASCORRO Attphys Unavailable Aris GORDON Attphys Unavailable Kit Heard MD Attphys Viv WOODRUFF, Krys Attphys Unavailable ASHLEIGH TRAYLOR Attphys Unavailable FLORENCE CHILD Attphys Unavailable Najma MASCORRO Admphys Unavailable Adryan TRAYLOR Admphys Unavailable Payers Payer Name Policy Type Policy Number Effective Date Expiration Date Najma alexander [facility] NA 2015 00:00:00 [facility] BCBSBCBS CHOICE PPO/FEDERAL EMPL [id number] 2015-Pre sentPPO [id number] 2015 00:00:00 [place] Problems Condition Name [...] Clostridium difficile colitis Disease Active 2016-10-04 00:00:00 [facility] Candidiasis of esophagus Candidiasis of esophagus Disease Acti ve 2016-10-03 00:00:[address] Abdominal pain Abdominal pain Disease Active 2016-10-01 00:00:00 [place] Vomiting Vomiting Disease Active 2016-09-30 00:00:00 [facility] 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 Active 2016-07-03 00:00:00 Tedt milena [facility] GI bleed GI bleed Disease Active 2016-06-25 00:00:00 [facility] S/P gastric bypass S/P gastric bypass Disease Active 2016-06-25 00:00:0 0 [facility] Dysphagia Dysphagia Disease Active 2016-05-30 00:00:00 [facility] Solorzano esophagus Solorzano esophagus Disease Active 2016-05-21 00:00:00 [facility] GERD (gastroesophageal reflux disease) GERD (gastroesophagea l reflux disease) Disease Active 2016-05-21 00:00:00 [facility] Depression Depression Disease Active 2016-05-21 00:00:00 [facility] Anxiety Anxiety Disease Active 2016-05-21 00:00:00 [facility] Intractable vomiting Intractable vomiting Disease Active 00:00:00 [facility] Depression Depression Disease Active 2016-05-15 00:00:00 [facility] Anxiety Anxiety Disease Active 2016-05-15 00:00:00 [facility] Intractable vomiting with nausea Intractable vomiting with nause a Disease Active 2016-05-14 00:00:00 Tedambika abbott [facility] Abdominal pain Abdominal pain Problem Active 2015-06-30 00:00:00 [facility] Leukocytosis Leukocytosis Problem Active 2015-06-30 00:00:00 [facility] History of adjustable gastric banding Gastric banding status Proble m Active 2015-06-30 00:00:00 [facility] Gastroparesis syndrome Gastroparesis syndrome Problem Active [facility] (LUF/SINA/SA) Flank pain Problem Active [facility] Urinary tract infection Problem Active [facility] Pyelonephritis Problem Active [facility] Allergies, Adverse Reactions, Alerts Allergy Name Allergy Type Status Severity Reaction(s) Onset Date Inacti ve Date Treating Clinician Comments Source Morphine Allergy to substance Active 2019-01-24 00:00:00 [facility] Codeine Propensity to adverse reactions to drug Active Other (See Comments) 2016-09-02 00:00:00 welts [facility] Morphine Propensity to adverse reactions to drug Active Other (See Comments) 2016-05-28 00:00:00 Welts, anxiety [facility] No Known Allergies DA Active U 2015-06-29 00:00:00 [facility] Family History Family Member Diagnosis Comments Start Date Stop Date Source Natural brother Hypertension [place] Natural mother Asthma [facility] Natural mother Breast cancer [place] Natural mother Diabetes [facility] Natural mother Hypertension [place] Natural sister Hypertension [place] Social History Social Habit Start Date Stop Date Quantity Comments Source History of tobacco use Cigarette Smoker [place] [facility] Cigarettes smoked current (pack per day) - Reported 00:00:00 2017-01-08 00:00:00 [place] Cigarette pack-years 2017-01-08 00:00:00 2017-01-08 00:00:00 [place] Tobacco use and exposure 2017-01-08 00:00:00 2017-01-08 00:00:00 Adriel grant used [place] Alcohol intake 2017-01-08 00:00:00 2017-01-08 [...] 1 TABLET(40 MG) BY MOUTH DAILY [facility] wong sucralfate (CARAFATE) 1 gram tablet 2017-09-08 00:00:00 Yes TAKE 1 TABLET BY MOUTH FOUR TIMES DAILY [place] cyanocobalamin 1,000 mcg/mL injection 2017-07-16 00:00 :00 2018-12-25 00:00:00 No USE 1 ML DIRECTED IN THE MUSCLE EVERY MONTH [place] ALPRAZolam (XANAX) 1 MG tablet 2017-01-21 10:38:14 Yes 1mg Q.5D Take 1 mg by mouth 2 (two) times a day. [place] calcium citrate-vitamin D3 (CITRACAL+D) 315-200 mg-unit per tablet 2017-01-21 10:38:14 Yes 1{tbl} QD Take 1 tablet by mouth every morning. [place] FOLIC ACID/MULTIVIT-MIN/LUTEIN (CENTRUM SILVER ORAL) 2 10:38:14 Yes 1{tbl} QD Take 1 tablet by mouth every morning. [place] DULoxetine (CYMBALTA) 60 MG capsule 2016-12-13 00:00:00 Yes 60mg Q.5D Take 60 mg by mouth 2 (two) times a day. [place] cyanocobalamin, vitamin B-12, 1,000 mcg tablet, sublingual 2016-10-29 00:00:[address] 1,000 mcg under the tongu e daily. [place] cyanocobalamin injection 1,000 mcg 2016-09-03 14:15:00 Y es Poor nutrition 1000ug [facility] cooper traZODone (DESYREL) 50 MG tablet 2016-07-03 00:00:00 Yes 50mg QD Take 50-100 mg by mouth nightly. [facility]ody mortensen Duloxetine Hcl (Cymbalta) 30 Mg CAPSULE. Duloxetine Hcl (Cymbalta) 30 Mg CAPSULE.DR Gongora 30 Twice A Day [facility] Eszopiclone (Lunesta) 3 Mg TABLET Eszopiclone (Lunesta) 3 Mg TABLET Yes 3 Bedtime [facility] Lorazepam (Ativan) 1 Mg TABLET Lorazepam (Ativan) 1 Mg TABLET Yes 1 Daily [facility] Pantoprazole Sodium (Protonix) 40 Mg TABLET.DR Pantopr azole Sodium (Protonix) 40 Mg TABLET. Yes 40 Daily [facility] Tramadol Hcl (Ultram) 50 Mg TABLET Tramadol Hcl (Ultram) 50 Mg TABLET Yes 50 Four Times Daily as needed for Pain [facility] Immunizations Ordered Immunization Name Filled Immunization Name Date Status Comments Source FLUCELVAX QUAD PF 2016-10-24 00:00:00 Completed [facility] Vital Signs Vital Name Observation Time Observation Value Comments Source Body Temperature 2019-06-27 06:09:00 98.8 [degF] [facility] Weight 2019-06-26 17:02:00 155 [lb_av] [facility] BMI (Body Mass Index) 2019-06-26 17:02:00 21.6 kg/m2 [facility] Respiratory Rate 2017-02-03 07:37:00 14 /min [facility] ([facility]/SINA/) BP Systolic 2017-02-03 07:37:00 146 mm[Hg] [facility] (F/SINA/SA) BP Diastolic 2017-02-03 07:37:00 87 mm[Hg] [facility] ([facility]/) Body Temperature 2017-02-03 07:35:00 97.8 F [facility] ([facility]/) O2% BldC Oximetry 2017-02-03 07:35:00 100 % [facility] ([facility]/) Height 2017-02-03 07:35:00 71 in [facility] ([facility]/SINA/SA) Weight Measured 2017-02-03 07:35:00 151.01 lbs [facility] ([facility]/SINA/SA) BMI (Body Mass Index) 2017-02-03 07:35:00 21.1 [facility] ([facility]/) Procedures Procedure Date / Time Performed Performing Clinician [facility] e Computed tomography of abdomen and pelvis with contrast 00:00:00 [facility] EXCISION OF MIDDLE ESOPHAGUS, ENDO, DIAGN 2019-01-25 00:00:00 [facility] X-ray of chest, two views 2019-01-12 00:00:[address] [facility] Plan of Care Planned Activity Planned Date Details Comments Source Future Scheduled Test 2019-09-11 00:00:00 INFLUENZA VACCINE [code = INFLUENZA VACCINE] [place] Future Scheduled Test 1993 00:00:00 Screening for berta gnant neoplasm of cervix (procedure) [code = 773842680] [place] [place] Instructions Flank Pain [facility] Instructions Urinary Tract Infection - Women [facility] Encounters Start Date/Time End Date/Time Encounter Type Admission Type [facility] Care Department Encounter ID Source 2019-06-26 16:44:00 2019-06-26 16:44:00 Registered Emergency Room 1 PHIL GEREMIAS [facility] [id number] [facility] 2019-02-13 13:19:00 2019-02-15 15:35:00 Discharged Inpatient (obs) 9 BUCK MASCORRO [facility] [id number] [facility] 2019-01-26 12:58:00 2019-01-28 13:30:00 Discharged Inpatient [facility] [id number] [facility] dical [place] 2019-01-12 15:07:00 2019-01-12 17:03:00 Departed Emergency Room 1 SANDRA GORDON [facility] [id number] [facility] 2017-02-03 07:32:00 2017-02-03 10:46:00 GASTROPARESIS E ASHLEIGH TRAYLOR [facility], [address] [place] [address] [facility] [id number] [facility] (LUF/SINA/SA) Results Test Description Test Time Test Comments Results Result Comments Source MRI SPINE CERVICAL WO 2019-08-02 15:19:00 [facility] [address] [place], [place] [address] Patient Name: RIGO ALLEN MR #: [id number] : 1970 Age/Sex: 49/F Req #: [id number] [facility] Physician: Ordered by: YONY CARMEN Report #: [id number] Location: MRI Room/Bed: Procedure: [id number] MRI/MRI SPINE CERVICAL WO Exam Date: Exam Time: REPORT STATUS: Signed History: Spondylosis with radiculopathy Comparison studies: None Technique: Sagittal T1, T2 and IR, axial T2 and axial gradient echo Intravenous contrast: None Findings: Alignment: Normal lordosis. No scoliosis. Cervicomedullary junction: No abnor malities. Patent foramen magnum. Soft tissues: No T2 hyperintense inflammatory changes. Spinal cord: Normal in size and signal from the foramen magnum through Vertebrae: No compression fracture, infection or marrow edema. Incidental benign T1 hyperintense hemangioma in the C2 vertebral body. No other neoplasm. Degenerative changes: Mild loss of T2 disc signal from C2 to C7. C2-C3: Patent canal and foramina. No disc herniation. C3-C4: Mild uncovertebral arthrosis without significant foraminal stenosis. Small disc bulge does not result in canal stenosis. C4-C5: Mild right foraminal stenosis due to uncovertebral arthrosis. Patent canal and left foramen. Small disc bulge does not result in canal stenosis. C5-C6: Patent neural foramina. Small disc bulge does not result in canal stenosis. C6-C7: Patent neural foramina. Small disc bulge does not result in canal stenosis. C7-T1: No abnormalities. IMPRESSION: 1. Mild degenerative changes with mild foraminal stenosis on the right at C4-C5. 2. No canal stenosis. Signed by: Dr. Mayra Turner M.D. on 08/02/2019 3:24 PM Dictated By: MAYRA TURNER MD 1524 Transcribed By: DILIP on 08/02/19 1524 COPY TO: YONY CARMEN CT ABDOMEN/PELVIS W 2019-06-26 19:19:00 [facility] [address] [place] [address] Patient Name: RIGO ALLEN MR #: [id number] : 1970 Age/Sex: 49/F Req #: [id number] Adm Physician: Ordered by: LORI PAULSON NP Report #: [id number] Location: ER Room/Bed: Procedure: [id number] CT/CT ABDOMEN/PELVIS W Exam Date: 06/26/19 Exam Time: 1819 REPORT STATUS: Signed EXAM: CT Abdomen and Pelvis WITH contrast INDICATION: r flank / r luq pain [id number] COMPARISON: None. TECHNIQUE: Abdomen and pelvis were scanned utilizing a multidetector helical scanner from the lung base to the pubic symphysis after administration of IV contrast. Coronal and sagittal reformations were obtained. Routine protocol was performed. Scan was performed when during portal venous phase. IV CONTRAST: 100 mL of Isovue 370 ORAL CONTRAST: Water COMPLICATIONS: None RADIATION DOSE: Total DLP: 286 mGy*cm Estimated effective dose: (DLP x 0.015 x size factor) mSv CTDIvol has been reviewed. It is below the limits set by the Radiation Protocol Committee (RPC). Dose modulation, iterative reconstruction, and/or weight based adjustment of the mA/kV was utilized to reduce the radiation dose to as low as reasonably achievable. FINDINGS: LINES and TUBES: None. LOWER THORAX: Unremarkable HEPATOBILIARY: No focal hepatic lesions. No biliary ductal dilation. GALLBLADDER: Surgically absent. SPLEEN: No splenomegaly. PANCREAS: No focal masses or ductal dilatation. ADRENALS: No adrenal nodules KIDNEYS/UR ETERS: Kidneys enhance symmetrically. No hydronephrosis. Small bilateral renal cortical cysts. No stones. GI TRACT: Limited evaluation due to small amount of intraperitoneal fat. No abnormal distention, wall thickening, or evidence of bowel obstruction. Gastric bypass surgical change. Appendix is normal. PELVIC ORGANS/BLADDER: The uterus is surgically absent. The urinary bladder is unremarkable. LYMPH NODES: No lymphadenopathy. Calcified inguinal lymph nodes. VESSELS: Scattered vascular calcifications. PERITONEUM / RETROPERITONEUM: No free air or fluid. BONES: No acute abnormality. SOFT TISSUES: Unremarkable. IMPRESSION: No acute abdominal or pelvic abnormality. Signed by: Jaime Jo MD on 06/26/2019 7:25 PM Dictated By: JAIME JO MD 24 Transcribed By: DILIP on 06/26/191924 COPY TO: LORI PAULSON [employer] Blood leukocytes automated count (number/volume) 2019-06-26 17:12:00 Test Item White Blood Count (test code = 6690-2) 12.97 4.8-10.8 [facility] count (number/volume)2019-06-26 17:12:00* Test Item Value Reference Range Interpretation Comments Red Blood Count (test code = 789-8) 4.14 3.6-5.1 [facility] hemoglobin measurement (moles/volume)2019-06-26 17:12:00* Test Item Value Reference Range Interpretation Comments Hemoglobin (test code = 67918-1) 11.4 12.0-16.0 [facility] blood hematocrit (volume fraction)2019-06-26 17:12:00* Test Item Value Reference Range Interpretation Comments Hematocrit (test code = 4544-3) 36.0 34.2-44.1 [facility] erythrocyte mean corpuscular [id number] 17:12:00* Test Item Value Reference Range Interpretation Comments Mean Corpuscular Volume (test code = 787-2) 87.0 81-99 [facility] eryth[facility] mean corpuscular hemoglobin (mass per erythrocyte)2019-06-26 17:12:00* Test Item Value Reference Range Interpretation Comments Mean Corpuscular Hemoglobin (test code = 785-6) 27.5 28-32 [facility] erythrocyte mean corpuscular hemoglobin concentration measurement (mass/volume)2019-06-26 17:12:00* Test Item Value Reference Range Interpretation Comments Mean Corpuscular Hemoglobin Concent (test code = 786-4) 31.7 31-35 [facility]andRDW VylWy-[id number] 17:12:00* Test Item Value Reference Range Interpretation Comments Red Cell Distribution Width (test code = 72893-4) 16.2 11.7 -14.4 [facility]andAutscionhealthed blood platelet count (count/volume)2019-06-26 17:12:00* Test Item Value Reference Range Interpretation Comments Platelet Count (test code = 777-3) 256 140-360 [facility] neutrophil count as percentage of total dstvvxjtvp7118-99-68 17:12:00* Test Item Value Reference Range Interpretation Comments Neutrophils (%) (Auto) (test code = 91932-3) 82.0 38.7-80.0 [facility] blood lymphocyte count as percentage ot total euigqalaxs3863-60-19 17:12:00* Test Item Value Reference Range Interpretation Comments Lymphocytes (%) (Auto) (test code = 736-9) 8.8 18.0-39.1 [facility] blood monocyte count as percentage of total jkdckeuurv3186-97-31 17:12:00* Test Item Value Reference Range Interpretation Comments Monocytes (%) (Auto) (test code = 5905-5) 8.0 4.4-11.3 [facility] blood eosinophil count as percentage of total loadowzlug6088-44-56 17:12:00* Test Item Value Reference Range Interpretation Comments Eosinophils (%) (Auto) (test code = 713-8) 0.4 0.0-6.[address] [facility] basophil count as percentage of total pwtaolzcyy9804-31-43 17:12:00* Test Item Value Reference Range Interpretation Comments Basophils (%) (Auto) (test code = 706-2) 0.3 0.0-1.0 [facility]and[facility]or[facility] procedure less than one hour [id number] 17:12:00* Test Item Value Reference Range Interpretation Comments IM GRANULOCYTES % (test code = IM GRANULOCYTES %) 0.5 0.0- 1.0 [facility]and[facility] blood neutrophil count 2019-06-26 17:12:00* Test Item Value Reference Range Interpretation Comments Neutrophils # (Auto) (test code = 751-8) 10.6 2.1-6.9 [facility] lymphocytes count (number/volume) 2019-06-26 17:12:00* Test Item Value Reference Range Interpretation Comments Lymphocytes # (Auto) (test code = 80921-0) 1.1 1.0-3.2 [facility] monocytes automated count (number/volume)2019-06-26 17:12:00* Test Item Value Reference Range Interpretation Comments Monocytes # (Auto) (test code = 742-7) 1.0 0.2-0.8 [facility] blood eosinophil count 2019-06-26 17:12:00* Test Item Value Reference Range Interpretation Comments Eosinophils # (Auto) (test code = 711-2) 0.1 0.0-0.4 [facility]and[facility] blood basophil count (count/volume)2019-06-26 17:12:00* Test Item Value Reference Range Interpretation Comments Basophils # (Auto) (test code = 704-7) 0.0 0.0-0.1 [facility]and[facility] procedure less than one hour [id number] 17:12:00* Test Item Value Reference Range Interpretation Comments Absolute Immature Granulocyte (auto (harshad t code = Absolute Immature Granulocyte (auto) 0.07 0-0.1 [facility] sodium measurement (moles/volume)2019-06-26 17:12:00* Test Item Value Reference Range Interpretation Comments Sodium Level (test code = 2951-2) 139 136-145 [facility] [place] [facility] plasma potassium measurement (moles/volume)2019-06-26 17:12:00* Test Item Value Reference Range Interpretation Comments Potassium Level (test code = 2823-3) 4.2 3.5-5.1 [facility] [place] [facility] plasma chloride measurement (moles/volume)2019-06-26 17:12:00* Test Item Value Reference Range Interpretation Comments Chloride Level (test code = 2075-0) 106 98-107 [facility] [place] [facility] or plasma carbon dioxide, total measurement (moles/volume)2019-06-26 17:12:00* Test Item Value Reference Range Interpretation Comments Carbon Dioxide Level (test code = 2028-9) 23 22-29 [facility] [place] [facility] or plasma anion lef4332-35-71 17:12:00* Test Item Value Reference Range Interpretation Comments Anion Gap (test code = 03476-3) 14.2 8-16 [facility] [place] [facility] or plasma urea nitrogen measurement (mass/volume)2019-06-26 17:12:00* Test Item Value Reference Range Interpretation Comments Blood Urea Nitrogen (test code = 3094-0) 12 7-26 [facility] [place] [facility] or plasma creatinine measurement (mass/volume)2019-06-26 17:12:00* Test Item Value Reference Range Interpretation Comments Creatinine (test code = 2160-0) 0.73 0.57-1.11 [facility] [place] [facility] or plasma urea nitrogen/creatinine mass horlj1569-60-29 17:12:00* Test Item Value Reference Range Interpretation Comments BUN/Creatinine Ratio (test code = 3097-3) 16 6-25 [facility]and[facility]ated glomerular filtration rate (GFR) mjewowltzxnuy7334-56-53 17:12:00* Test Item Value Reference Range Interpretation Comments Estimat Glomerular Filtration Rate (test code = 058860425) > 60 >60 Ranges were taken from the National Kidney Disease Education Program and the [facility] Foundation literature.Reference ranges:60 or greater: Whduxs19-53 ( for 3 consecutive months): Chronic kidney disease 15 or less: Kidney failureCovenant Health LevellandGlucose cysefekouie9293-56-61 17:12:00* Test Item Value Reference Range Interpretation Comments Glucose Level (test code = VUH5061) 96 74-118 [facility] [place] [facility] plasma calcium measurement (mass/volume)2019-06-26 17:12:00* Test Item Value Reference Range Interpretation Comments Calcium Level (test code = 95136-8) 9.1 8.4-10.2 [facility] [place] [facility] plasma total bilirubin measurement (mass/volume)2019-06-26 17:12:00* Test Item Value Reference Range Interpretation Comments Total Bilirubin (test code = 1975-2) 0.3 0.2-1.2 [facility]and[facility]oroscopic procedure less than one hour [id number] 17:12:00* Test Item Value Reference Range Interpretation Comments Aspartate Amino Transf (AST/SGOT) (test code = Aspartate Amino Transf (AST/SGOT)) 16 5-34 [facility] [place] [facility] or plasma alanine aminotransferase measurement (enzymatic activity/volume)2019-06-26 17:12:00* Test Item Value Reference Range Interpretation Comments Alanine Aminotransferase (ALT/SGPT) (test code = 1742-6) 16 0-55 [facility] [place] [facility] or plasma protein measurement (mass/volume)2019-06-26 17:12:00* Test Item Value Reference Range Interpretation Comments Total Protein (test code = 2885-2) 6.7 6.5-8.1 [facility] [place] [facility] or plasma albumin measurement (mass/volume)2019-06-26 17:12:00* Test Item Value Reference Range Interpretation Comments Albumin (test code = 1751-7) 3.6 3.5-5.0 [facility]and[facility] globulin measurement (mass/volume) 2019-06-26 17:12:00* Test Item Value Reference Range Interpretation Comments Globulin (test code = 45437-2) 3.1 2.3-3.5 [facility] [place] [facility] or plasma albumin/globulin mass [id number] 17:12:00* Test Item Value Reference Range Interpretation Comments Albumin/Globulin Ratio (test code = 1759-0) 1.2 0.8-2.0 [facility] [place] [facility] or plasma alkaline phosphatase measurement (enzymatic activity/volume)2019-06-26 17:12:00* Test Item Value Reference Range Interpretation Comments Alkaline Phosphatase (test code = 6768-6) 78 40-150 [facility] [place] [facility] or plasma amylase measurement (enzymatic activity/volume)2019-06-26 17:12:00* Test Item Value Reference Range Interpretation Comments Amylase Level (test code = 1798-8) 50 25-125 [facility] [place] [facility] or plasma lipase measurement (enzymatic activity/volume)2019-06-26 17:12:00* Test Item Value Reference Range Interpretation Comments Lipase (test code = 3040-3) 13 8-78 [facility]and[facility]rine color jyylqdyelarkk3799-13-65 17:07:00* Test Item Value Reference Range Interpretation Comments Urine Color (test code = 5778-6) BROWN YELLOW [facility]andUrine [id number] 17:07:00* Test Item Value Reference Range Interpretation Comments Urine Clarity (test code = 92771-0) SL CLOUDY CLEAR [facility] [place] [facility] Hospitalpecific gravity of Urine by Test strip 2019-06-26 17:07:00* Test Item Value Reference Range Interpretation Comments Urine Specific [place] (test code = 5811-5) 1.025 1.010-1.02 5 [facility]and[facility] pH measurement by automated test [id number] 17:07:00* Test Item Value Reference Range Interpretation Comments Urine pH (test code = 81739-6) 5.5 5-7 [facility]and[facility] leukocyte esterase detection by [id number] 17:07:00* Test Item Value Reference Range Interpretation Comments Urine Leukocyte Esterase (test code = 5799-2) NEGATIVE NEGATIVE [facility]and[facility]rine nitrite [id number] 17:07:00* Test Item Value Reference Range Interpretation Comments Urine Nitrite (test code = 49261-4) POSITIVE NEGATIVE [facility]and[facility] protein measurement by test strip (mass/volume)2019-06-26 17:07:00* Test Item Value Reference Range Interpretation Comments Urine Protein (test code = 5804-0) TRACE NEGATIVE [facility]andUrine glucose rhouyimqu0392-66-45 17:07:00* Test Item Value Reference Range Interpretation Comments Urine Glucose (UA) (test code = 2349-9) 1+ NEGATIVE [facility]ellandUrine ketones detection by automated test cxgkt2870-24-99 17:07:00* Test Item Value Reference Range Interpretation Comments Urine Ketones (test code = 29329-9) TRACE NEGATIVE [facility]ellandUrine urobilinogen measurement by test strip (mass/volume)2019-06-26 17:07:00* Test Item Value Reference Range Interpretation Comments Urine Urobilinogen (test code = 84059-0) 1 0.2-1 [facility]andUrine total bilirubin measurement (mass/volume)2019-06-26 17:07:00* Test Item Value Reference Range Interpretation Comments Urine Bilirubin (test code = 1978-6) SMALL NEGATIVE [facility]andUrine erythrocytes dowydkith0341-28-38 17:07:00* Test Item Value Reference Range Interpretation Comments Urine Blood (test code = 60081-7) NEGATIVE NEGATIVE [facility]ellandAutomated urine sediment leukocyte count by microscopy (number/high power field)2019-06-26 17:07:00* Test Item Value Reference Range Interpretation Comments Urine WBC (test code = 5821-4) 0-5 0-5 [facility]andErythrocytes detection in urine sediment by light aqqvxmqlbm0895-88-80 17:07:00* Test Item Value Reference Range Interpretation Comments Urine RBC (test code = 31640-2) 0-5 0-5 [facility]andBacteria detection in urine sediment by light lhadffaqwd0270-76-62 17:07:00* Test Item Value Reference Range Interpretation Comments Urine Bacteria (test code = 99949-9) RARE NONE [facility]ellandEpithelial cells detection in urine sediment by light oxpobmwrpd8627-57-47 17:07:00* Test Item Value Reference Range Interpretation Comments Urine Epithelial Cells (test code = 16366-3) RARE NONE [facility]ellandCalcium oxalate crystals detection in urine sediment by light yiujcqgzqa0853-49-46 17:07:00* Test Item Value Reference Range Interpretation Comments Urine Calcium Oxalate Crystals (test code = 5774-5) NEGAR [facility] 12:17:00 RUN DATE: 06/21/19 [place] - Lab PAGE 1 RUN TIME: 1218 Specimen Inqui ry RUN USER: INTERFACE PATIENT: RIGO ALLEN ACCT #: [id number] LOC: KASSANDRA U #: [id number] AGE/SX: 49/F ROOM: [facility] RE06/17/19TANISHA DR: Theo Christie MD : 74 BED: A DIS: 06/18/19 STATUS: DIS IN TLOC: SPEC #: [id number] RECD: 06/18/19 STATUS: YAMILE WALTER #: [id number] GERSON: 06/18/19- SUBM DR: Theo Christie MD ENTERED: 06/18/19 SP TYPE: COLON OTHR DR: Amaris Dianna flaquita or Family Physician Faustino Rodriguez MDORDERED: GROSS/2 COPIES TO: No Primary or Family Ph ysician Theo Christie MD [address] [place] [address] [phone] Faustino Rodriguez MD [address], [address] [place], [place] [address] PROCEDURES: MONA (06/18/19) TISSUES: 1. TERMINAL IL EUM - BX 2. COLON, NOS - RANDOM BX 3. SIGMOID COLON - BX CLINICAL HISTORY COLLECTION DATE: 06/17/19 ABDOMINAL PAIN FINAL DIAGNOSIS Terminal ileum, biopsy: SMALL INTESTINAL MUCOSA, NO PATHOLOG IC ALTERATION Colon, random biopsy: COLONIC MUCOSA, NO PATHOLOG IC ALTERATION NEGATIVE FOR FEATURES OF MICROSCOPIC COLITIS Sigmoid colon, polyp, biopsy: HYPERPLASTIC POLYP(S) NEGATIVE FOR MALIGNANC Y DMW/gm D CONTINUED ON NEXT PAGE - RUN DATE: 06/21/19 [place] - Lab PAGE 2 RUN TIME: 1218 Specimen Inquiry RUN USER: INTERFACE SPEC #: [id number] PATIENT: ULYSSES ALLEN BHARAT Ku #[id number] (Continued) FINAL DIAGNOSIS (Continued) [id number] MACROSCOPIC Specimen (1) is receiv ed in formalin, labeled with the patient's name, identified as "terminal ileum ", and consists of light johnson biopsy tissue measuring 0.3 cm in aggregate, subm itted as (1). Specimen (2) is received in formalin, labeled with the patie nt's name, identified as "random colon", and consists of multiple fragments of johnson biopsy tissue measuring 0.5 cm in aggregate, submitted as (2). Spec imen (3) is received in formalin, labeled with the patient's name, identified as "sigmoid colon polyp", and consists of three fragments of light johnson biopsy tissue measuring 0.35 cm in aggregate, submitted as (3). GROSS PERFORMED A T [facility] [address] [place] [address] [phone])[phone] MICROSCOPIC All o f the stains, including any controls performed, stain appropriately. ROSEMARIE ROSCOPIC PERFORMED AT [facility] [address] [place] [address] [phone])[phone] PERFORMING SIT E Processed at: [facility] [address] [place] [address] Signed SIGNATURE ON FILE Kathy Villatoro MD 06/21/19 1217 END OF REPORT Novel Coronavirus 2019 Gizsypu1666-05-03 07:01:00* Test Item Value Reference Range Interpretation Comments [...] (test code = COVNONPUIBED) Negative BASIC METABOLIC OEQAN4018-88-15 05:36:00* Test Item Value Reference Range Interpretation [...] This LDL result is a direct measurement.========= RYMIKEIWT9984-61-93 05:36:00* Test Item Value Reference Range Interpretation Comments MAGNESIUM (test code = MAG) 1.9 mg/dL 1.8-2.4 N BASIC METABOLIC FEWVX2629-65-14 05:29:00* Test Item Value Reference Range Interpretation [...] LDL (test code = LDL) mg/dL 100-129 HINSVAWID5918-27-15 05:29:00* Test Item Value Reference Range Interpretation Comments MAGNESIUM (test code = MAG) mg/dL 1.8-2.4 CBC W/AUTO QVHZ7731-40-18 05:21:00* Test Item Value Reference Range Interpretation [...] code = LDH) 206 IUnit/L 84-246 N PGAKNU2627-86-51 16:32:00* Test Item Value Reference Range Interpretation Comments LIPASE (test code = LIP) 72 U/L 73.0-393.0 L COMPREHENSIVE METABOLIC BZDPA1283-36-26 16:32:00* Test Item Value Reference Range Interpretation [...] code = CK) 62 IUnit/L 26-208 N HEEL0641-64-86 16:32:00* Test Item Value Reference Range Interpretation Comments CKMB (test code = CKMBT) < 1.0 ng/mL 0-6.0 N YPUGWBSY-W7372-38-05 16:32:00* Test Item Value Reference Range Interpretation Comments TROPONIN-I (test code = TROPI) <0.015 ng/mL 0-0.045 N COMPREHENSIVE METABOLIC VBCUC4184-70-21 16:23:00* Test Item Value Reference Range Interpretation [...] (CK) (test code = CK) IUnit/L 26-208 XFJT1332-24-11 16:23:00* Test Item Value Reference Range Interpretation Comments CKMB (test code = CKMBT) ng/mL 0-6.0 WRGLHRKN-G3695-91-05 16:23:00* Test Item Value Reference Range Interpretation Comments TROPONIN-I (test code = TROPI) ng/mL 0-0.045 PROTHROMBIN YSRI6419-92-50 15:58:00* Test Item Value Reference Range Interpretation [...] (2.5-3.5) IS PATIENT ON ANTICOAGULANTS? NTHROMBOPLASTIN TIME QOOYTQJ5651-84-52 15:58:00* Test Item Value Reference Range Interpretation Comments THROMBOPLASTIN TIME PARTIAL (test code = PTT) 35.7 seconds 23.0-37. 0 N IS PATIENT ON ANTICOAGULANTS? NCBC W/AUTO IVZF8231-46-94 15:39:00* Test Item Value Reference Range Interpretation [...] NRBC#) 0.00 K/mm3 0.0-0.1 N CBC W/AUTO NRKH0354-02-48 15:37:00* Test Item Value Reference Range Interpretation [...] = BA#) K/mm3 0.0-0.2 UPPER GI W/SMALL THO6169-00-01 14:23:00 [place] [address] Patient Name: RIGO ALLEN MR #: [id number] : 1970 Age/Sex: 48/F Req #: [id number] Adm Physician: BUCK MASCORRO MD Ordered by: SINA PURCELL MD Report #: [id number] Location: MED/SURG2 Room/Bed: [facility] Procedure: 01 DX/UPPER GI W/SMALL BOW Exam Date: 02/15/19 Exam Time: 1130 REPORT STATUS: Signed Upper GI Series with Small Bowel Follow solar electric/photovoltaic installer(S): Mirella Yin MD Comparison: None. Procedure: Barium swallow and upper GI fluoro scopic images obtained with air and barium contrast in a variety of positions. Fluoroscopy Time: 0.8 minutes Total Dose: 14.8 DISCUSSION: SCOU T: The bowel gas pattern is non-obstructive. SWALLOW: Grossly unremarkabl e. ESOPHAGUS: Mucosa is unremarkable. Predominately primary contractions. No significant reflux. STOMACH: Status post abiley en Y gastric bypass lyndsay nic. 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 Y TO: SINA PURCELL MD ABDOMEN-1VIEW (KU)2019-02-15 11:54:00 [place] [address] Patient Name: RIGO ALLEN MR #: [id number] : 1970 Age/Sex: 48/F Req #: [id number] Adm Physician: BUCK MASCORRO MD Ordered by: BUCK MASCORRO MD Report #: [id number] Location: MED/SURG2 Room/Bed: [facility] Procedure: 0106-00 11 DX/ABDOMEN-1VIEW (KUB) Exam Date: Exam Time: [...] Level (test code = 2951-2) 141 136-145 [facility]andPotassium Fnxjc9513-69-12 06:11:00* Test Item Value Reference Range Interpretation Comments Potassium Level (test code = 2823-3) 3.8 3.5-5.1 [facility]andChloride Zeniw5979-72-15 06:11:00* Test Item Value Reference Range Interpretation Comments Chloride Level (test code = 2075-0) 107 98-107 [facility]andCarbon Dioxide Mbxyu3666-09-12 06:11:00* Test Item Value Reference Range Interpretation Comments Carbon Dioxide Level (test code = 2028-9) 26 22-29 [facility]ellandAnion Rxr0290-89-29 06:11:00* Test Item Value Reference Range Interpretation Comments Anion Gap (test code = 63987-4) 11.8 8-16 [facility]andBlood Urea Vnloxzfy9850-79-04 06:11:00* Test Item Value Reference Range Interpretation Comments Blood Urea Nitrogen (test code = 3094-0) 10 7-26 [facility]andCreatinine2020-01-06 06:11:00* Test Item Value Reference Range Interpretation Comments Creatinine (test code = 2160-0) 0.61 0.57-1.11 [facility]andBUN/Creatinine Phahf0316-04-98 06:11:00* Test Item Value Reference Range Interpretation Comments BUN/Creatinine Ratio (test code = 3097-3) 16 6-25 [facility]ellandEstimat Glomerular Filtration Rate 2019-02-15 06:11:00* Test Item Value Reference Range Interpretation Comments Estimat Glomerular Filtration Rate (test code = 902957886) > 60 >60 Ranges were taken from the National Kidney Disease Education Program and the [facility] Kidney Foundation literature.Reference ranges:60 or greater: Xaxhab89-75 ( for 3 consecutive months): Chronic kidney disease 15 or less: Kidney failureCovenant Health LevellandGlucose Uvfxe0229-46-94 06:11:00* Test Item Value Reference Range Interpretation Comments Glucose Level (test code = SSF4975) 83 74-118 [facility]ellandCalcium Mzjmo0395-09-69 06:11:00* Test Item Value Reference Range Interpretation Comments Calcium Level (test code = 25424-8) 8.6 8.4-10.2 [facility]andWhite Blood Vbvyh0370-24-01 05:34:00* Test Item Value Reference Range Interpretation Comments White Blood Count (test code = 6690-2) 5.74 4.8-10.8 [facility]andRed Blood Nsjnp5753-92-39 05:34:00* Test Item Value Reference Range Interpretation Comments Red Blood Count (test code = 789-8) 3.69 3.6-5.1 [facility]andHemoglobin2020-01-06 05:34:00* Test Item Value Reference Range Interpretation Comments Hemoglobin (test code = 97729-9) 10.4 12.0-16.0 L [facility]andHematocrit2020-01-06 05:34:00* Test Item Value Reference Range Interpretation Comments Hematocrit (test code = 4544-3) 34.0 34.2-44.1 L [facility]andMean Corpuscular Twasnz2297-06-19 05:34:00* Test Item Value Reference Range Interpretation Comments Mean Corpuscular Volume (test code = 787-2) 92.1 81-99 [facility]andMean Corpuscular Gjkoguajeg4298-75-01 05:34:00* Test Item Value Reference Range Interpretation Comments Mean Corpuscular Hemoglobin (test code = 785-6) 28.2 28-32 [facility]andMean Corpuscular Hemoglobin Concent 2019-02-15 05:34:00* Test Item Value Reference Range Interpretation Comments Mean Corpuscular Hemoglobin Concent (test code = 786-4) 30.6 31-35 L [facility]ellandRed Cell Distribution Xdywj5544-94-94 05:34:00* Test Item Value Reference Range Interpretation Comments Red Cell Distribution Width (test code = 93182-4) 15.2 11.7 -14.4 H [facility]ellandPlatelet Jxoxi3413-71-27 05:34:00* Test Item Value Reference Range Interpretation Comments Platelet Count (test code = 777-3) 227 140-360 [facility]ellandNeutrophils (%) (Auto)2019-02-15 05:34:00 * Test Item Value Reference Range Interpretation Comments Neutrophils (%) (Auto) (test code = 24457-7) 44.8 38.7-80.0 [facility]andLymphocytes (%) (Auto)2019-02-15 05:34:00 * Test Item Value Reference Range Interpretation Comments Lymphocytes (%) (Auto) (test code = 736-9) 46.7 18.0-39.1 H [facility]ellandMonocytes (%) (Auto)2019-02-15 05:34:00* Test Item Value Reference Range Interpretation Comments Monocytes (%) (Auto) (test code = 5905-5) 7.0 4.4-11.3 [facility]andEosinophils (%) (Auto)2019-02-15 05:34:00 * Test Item Value Reference Range Interpretation Comments Eosinophils (%) (Auto) (test code = 713-8) 1.2 0.0-6.0 [facility]ellandBasophils (%) (Auto)2019-02-15 05:34:00* Test Item Value Reference Range Interpretation Comments Basophils (%) (Auto) (test code = 706-2) 0.3 0.0-1.0 [facility]ellandIM GRANULOCYTES %2019-02-15 05:34:00* Test Item Value Reference Range Interpretation Comments IM GRANULOCYTES % (test code = IM GRANULOCYTES %) 0.0 0.0- 1.0 [facility]ellandNeutrophils # (Auto)2019-02-15 05:34:00* Test Item Value Reference Range Interpretation Comments Neutrophils # (Auto) (test code = 751-8) 2.6 2.1-6.9 [facility]andLymphocytes # (Auto)2019-02-15 05:34:00* Test Item Value Reference Range Interpretation Comments Lymphocytes # (Auto) (test code = 73152-3) 2.7 1.0-3.2 [facility]ellandMonocytes # (Auto)2019-02-15 05:34:00* Test Item Value Reference Range Interpretation Comments Monocytes # (Auto) (test code = 742-7) 0.4 0.2-0.8 [facility]andEosinophils # (Auto)2019-02-15 05:34:00* Test Item Value Reference Range Interpretation Comments Eosinophils # (Auto) (test code = 711-2) 0.1 0.0-0.4 [facility]andBasophils # (Auto)2019-02-15 05:34:00* Test Item Value Reference Range Interpretation Comments Basophils # (Auto) (test code = 704-7) 0.0 0.0-0.1 [facility]ellandAbsolute Immature Granulocyte (auto 2019-02-15 05:34:00* Test Item Value Reference Range Interpretation Comments Absolute Immature Granulocyte (auto (harshad t code = Absolute Immature Granulocyte (auto) 0 0-0.1 [facility]2019-02-14 09:48:00 [facility] [address] [place] [address] Patient Name: RIGO ALLEN MR #: [id number] : 1970 Age/Sex: 48/F Req #: [id number] Adm Physician: BUCK MASCORRO MD Ordered by: BUCK MASCORRO MD Report #: [id number] Location: MED/SURG2 Room/Bed: [facility] Procedure: 0105-00 07 DX/ABDOMEN-1VIEW ([facility]) Exam Date: 02/14/19 Exam T megan: 0830 [...] COPY TO: BUCK MASCORRO MD Free Thyroxine Wefqh6973-42-69 16:40:00* Test Item Value Reference Range Interpretation Comments Free Thyroxine Index (test code = 25493-1) 2.1673 1.4-3.8 [facility]ellandThyroxine (T4)2019-02-13 16:40:00* Test Item Value Reference Range Interpretation Comments Thyroxine (T4) (test code = 3026-2) 7.51 4.5-10.9 Our current method for Total T4 is not recommended for use as the only marker fo r evaluating patients for thyroid disorders.[facility]ellandTriiodothyronine (T3) Ztlrcv3933-60-57 16:40:00* Test Item Value Reference Range Interpretation Comments Triiodothyronine (T3) Uptake (test code = 3050-2) 28.86 22.5 -37.0 [facility]ellandThyroid Stimulating Hormone (TSH) 2019-02-13 16:40:00* Test Item Value Reference Range Interpretation Comments Thyroid Stimulating Hormone (TSH) (test code = 39348-1) 0.683 0.350-4.940 [facility]ellandAmylase Xqdzt3679-10-99 16:30:00* Test Item Value Reference Range Interpretation Comments Amylase Level (test code = 1798-8) 43 25-125 [facility]ellandLipase2020-01-04 16:30:00* Test Item Value Reference Range Interpretation Comments Lipase (test code = 3040-3) 6 8-78 L [facility]ellandFree thyroxine uxkcw1477-19-20 14:27:00* Test Item Value Reference Range Interpretation Comments Free Thyroxine Index (test code = 34482-2) 2.1673 1.4-3.8 [facility] plasma thyroxine (T4) measurement (mass/volume)2019-02-13 14:27:00* Test Item Value Reference Range Interpretation Comments Thyroxine (T4) (test code = 3026-2) 7.51 4.5-10.9 Our current method for Total T4 is not recommended for use as the only marker fo r evaluating patients for thyroid disorders.[facility] Hospitalerum or plasma triiodothyronine resin uptake (T3RU)2019-02-13 14:27:00* Test Item Value Reference Range Interpretation Comments Triiodothyronine (T3) Uptake (test code = 3050-2) 28.86 22.5 -37.0 [facility] Hospitalerum or plasma thyrotropin measurement by detection limit <= 0.005 miu/l (units/volume)2019-02-13 14:27:00* Test Item Value Reference Range Interpretation Comments Thyroid Stimulating Hormone (TSH) (test code = 36269-1) 0.683 0.350-4.940 [facility]ellandDifferential Total Cells Counted 2019-01-27 12:05:00* Test Item Value Reference Range Interpretation Comments Differential Total Cells Counted (test code = Differen tial Total Cells Counted) 100 [facility]ellandNeutrophils % (Manual)2019-01-27 12:05:00 * Test Item Value Reference Range Interpretation Comments Neutrophils % (Manual) (test code = 14189-8) 46 40-74 [facility]andLymphocytes % (Manual)2019-01-27 12:05:00 * Test Item Value Reference Range Interpretation Comments Lymphocytes % (Manual) (test code = 737-7) 41 19-48 [facility]andMonocytes % (Manual)2019-01-27 12:05:00* Test Item Value Reference Range Interpretation Comments Monocytes % (Manual) (test code = 744-3) 8 3.4-9.0 [facility]ellandReactive Vpsiqnqqkww8961-40-11 12:05:00* Test Item Value Reference Range Interpretation Comments Reactive Lymphocytes (test code = 64804-7) 5 [facility]ellandPlatelet Feambfxp6369-76-95 12:05:00* Test Item Value Reference Range Interpretation Comments Platelet Estimate (test code = 59364-5) ADEQUATE [facility]ellandPlatelet Morphology Txzpmyz7495-03-83 12:05:00* Test Item Value Reference Range Interpretation Comments Platelet Morphology Comment (test code = 98303-8) NORMAL [facility]ellandRed Cell Morphology Jwkokev8880-37-83 12:05:00* Test Item Value Reference Range Interpretation Comments Red Cell Morphology Comment (test code = 6742-1) NORMAL [facility]ellandDifferential Total Cells Counted 2019-01-27 12:05:00* Test Item Value Reference Range Interpretation Comments Differential Total Cells Counted (test code = Ira lee Total Cells Counted) 100 [facility]andNeutrophils % (Manual)2019-01-27 12:05:00 * Test Item Value Reference Range Interpretation Comments Neutrophils % (Manual) (test code = 49293-5) 46 40-74 [facility]andLymphocytes % (Manual)2019-01-27 12:05:00 * Test Item Value Reference Range Interpretation Comments Lymphocytes % (Manual) (test code = 737-7) 41 19-48 [facility]andMonocytes % (Manual)2019-01-27 12:05:00* Test Item Value Reference Range Interpretation Comments Monocytes % (Manual) (test code = 744-3) 8 3.4-9.0 [facility]ellandReactive Sorzltjigrz5094-45-66 12:05:00* Test Item Value Reference Range Interpretation Comments Reactive Lymphocytes (test code = 62139-3) 5 [facility]ellandPlatelet Ubsfslcq0039-69-61 12:05:00* Test Item Value Reference Range Interpretation Comments Platelet Estimate (test code = 04421-0) ADEQUATE [facility]ellandPlatelet Morphology Jocxopc3993-44-15 12:05:00* Test Item Value Reference Range Interpretation Comments Platelet Morphology Comment (test code = 21195-9) NORMAL [facility]ellandRed Cell Morphology Fdjuznt4697-62-96 12:05:00* Test Item Value Reference Range Interpretation Comments Red Cell Morphology Comment (test code = 6742-1) NORMAL [facility] Hospitalodium Rcyps0064-74-61 06:13:00* Test Item Value Reference Range Interpretation Comments Sodium Level (test code = 2951-2) 137 136-145 [facility]andPotassium Lkfsv2413-90-02 06:13:00* Test Item Value Reference Range Interpretation Comments Potassium Level (test code = 2823-3) 3.2 3.5-5.1 L [facility]ellandChloride Cdihg0268-04-52 06:13:00* Test Item Value Reference Range Interpretation Comments Chloride Level (test code = 2075-0) 106 98-107 [facility]ellandCarbon Dioxide Isscv7085-09-03 06:13:00* Test Item Value Reference Range Interpretation Comments Carbon Dioxide Level (test code = 2028-9) 24 22-29 [facility]ellandAnion Dfs7817-49-02 06:13:00* Test Item Value Reference Range Interpretation Comments Anion Gap (test code = 33709-8) 10.2 8-16 [facility]andBlood Urea Ogfztcfl1345-10-79 06:13:00* Test Item Value Reference Range Interpretation Comments Blood Urea Nitrogen (test code = 3094-0) 9 7-26 [facility]ellandCreatinine2019-12-18 06:13:00* Test Item Value Reference Range Interpretation Comments Creatinine (test code = 2160-0) 0.62 0.57-1.11 [facility]andBUN/Creatinine Hlnga8967-23-74 06:13:00* Test Item Value Reference Range Interpretation Comments BUN/Creatinine Ratio (test code = 3097-3) 15 6-25 [facility] LevellandEstimat Glomerular Filtration Rate 2019-01-27 06:13:00* Test Item Value Reference Range Interpretation Comments Estimat Glomerular Filtration Rate (test code = 927736495) > 60 >60 Ranges were taken from the National Kidney Disease Education Program and the [facility] Kid[facility] Foundation literature.Reference ranges:60 or greater: Ymhzon88-45 ( for 3 consecutive months): Chronic kidney disease 15 or less: Kidney failureCovenant Health LevellandGlucose Vbitj0926-31-47 06:13:00* Test Item Value Reference Range Interpretation Comments Glucose Level (test code = MSI6062) 89 74-118 [facility]ellandCalcium Ppgav1257-36-31 06:13:00* Test Item Value Reference Range Interpretation Comments Calcium Level (test code = 28240-9) 7.9 8.4-10.2 L [facility]ellandWhite Blood Rwupz8190-06-00 05:48:00* Test Item Value Reference Range Interpretation Comments White Blood Count (test code = 6690-2) 6.62 4.8-10.8 [facility]andRed Blood Wcsia8219-59-82 05:48:00* Test Item Value Reference Range Interpretation Comments Red Blood Count (test code = 789-8) 3.60 3.6-5.1 [facility]andHemoglobin2019-12-18 05:48:00* Test Item Value Reference Range Interpretation Comments Hemoglobin (test code = 90553-0) 10.3 12.0-16.0 L [facility]ellandHematocrit2019-12-18 05:48:00* Test Item Value Reference Range Interpretation Comments Hematocrit (test code = 4544-3) 32.6 34.2-44.1 L [facility]ellandMean Corpuscular Wnltkw0353-03-79 05:48:00* Test Item Value Reference Range Interpretation Comments Mean Corpuscular Volume (test code = 787-2) 90.6 81-99 [facility]andMean Corpuscular Pjkoxmmkgx4078-55-29 05:48:00* Test Item Value Reference Range Interpretation Comments Mean Corpuscular Hemoglobin (test code = 785-6) 28.6 28-32 [facility]andMean Corpuscular Hemoglobin Concent 2019-01-27 05:48:00* Test Item Value Reference Range Interpretation Comments Mean Corpuscular Hemoglobin Concent (test code = 786-4) 31.6 31-35 [facility]ellandRed Cell Distribution Rijrn8907-97-36 05:48:00* Test Item Value Reference Range Interpretation Comments Red Cell Distribution Width (test code = 49526-4) 14.7 11.7 -14.4 H [facility] LevellandPlatelet Jgnbw5862-71-15 05:48:00* Test Item Value Reference Range Interpretation Comments Platelet Count (test code = 777-3) 214 140-360 [facility]ellandNeutrophils (%) (Auto)2019-01-27 05:48:00 * Test Item Value Reference Range Interpretation Comments Neutrophils (%) (Auto) (test code = 14188-9) 46.4 38.7-80.0 [facility]ellandLymphocytes (%) (Auto)2019-01-27 05:48:00 * Test Item Value Reference Range Interpretation Comments Lymphocytes (%) (Auto) (test code = 736-9) 42.0 18.0-39.1 H [facility]ellandMonocytes (%) (Auto)2019-01-27 05:48:00* Test Item Value Reference Range Interpretation Comments Monocytes (%) (Auto) (test code = 5905-5) 9.4 4.4-11.3 [facility]osinophils (%) (Auto)2019-01-27 05:48:00 * Test Item Value Reference Range Interpretation Comments Eosinophils (%) (Auto) (test code = 713-8) 1.8 0.0-6.0 [facility]andBasophils (%) (Auto)2019-01-27 05:48:00* Test Item Value Reference Range Interpretation Comments Basophils (%) (Auto) (test code = 706-2) 0.2 0.0-1.0 [facility]andIM GRANULOCYTES %2019-01-27 05:48:00* Test Item Value Reference Range Interpretation Comments IM GRANULOCYTES % (test code = IM GRANULOCYTES %) 0.2 0.0- 1.0 [facility]andNeutrophils # (Auto)2019-01-27 05:48:00* Test Item Value Reference Range Interpretation Comments Neutrophils # (Auto) (test code = 751-8) 3.1 2.1-6.9 [facility]andLymphocytes # (Auto)2019-01-27 05:48:00* Test Item Value Reference Range Interpretation Comments Lymphocytes # (Auto) (test code = 58546-0) 2.8 1.0-3.2 [facility]andMonocytes # (Auto)2019-01-27 05:48:00* Test Item Value Reference Range Interpretation Comments Monocytes # (Auto) (test code = 742-7) 0.6 0.2-0.8 [facility]andEosinophils # (Auto)2019-01-27 05:48:00* Test Item Value Reference Range Interpretation Comments Eosinophils # (Auto) (test code = 711-2) 0.1 0.0-0.4 [facility]andBasophils # (Auto)2019-01-27 05:48:00* Test Item Value Reference Range Interpretation Comments Basophils # (Auto) (test code = 704-7) 0.0 0.0-0.1 [facility]andAbsolute Immature Granulocyte (auto 2019-01-27 05:48:00* Test Item Value Reference Range Interpretation Comments Absolute Immature Granulocyte (auto (harshad t code = Absolute Immature Granulocyte (auto) 0.01 0-0.1 [facility]andFluoroscopic procedure less than one hour cjmpfmva3784-72-22 04:10:00* Test Item Value Reference Range Interpretation Comments Differential Total Cells Counted (test code = Differhayley tial Total Cells Counted) 100 [facility] blood neutrophils/100 leukocytes 2019-01-27 04:10:00* Test Item Value Reference Range Interpretation Comments Neutrophils % (Manual) (test code = 15792-1) 46 40-74 [facility] blood lymphocytes/100 leukocytes 2019-01-27 04:10:00* Test Item Value Reference Range Interpretation Comments Lymphocytes % (Manual) (test code = 737-7) 41 19-48 [facility] blood monocytes/100 leukocytes 2019-01-27 04:10:00* Test Item Value Reference Range Interpretation Comments Monocytes % (Manual) (test code = 744-3) 8 3.4-9.0 [facility]andBlood lymphocytes variant count (number/volume)2019-01-27 04:10:00* Test Item Value Reference Range Interpretation Comments Reactive Lymphocytes (test code = 02274-6) 5 [facility]andBlood platelets count by estimate (number/volume)2019-01-27 04:10:00* Test Item Value Reference Range Interpretation Comments Platelet Estimate (test code = 63331-1) ADEQUATE [facility]andPlatelet jzhhfmgmay5652-63-43 04:10:00* Test Item Value Reference Range Interpretation Comments Platelet Morphology Comment (test code = 85578-4) NORMAL [facility]andRB vnazqzwbda1026-51-30 04:10:00* Test Item Value Reference Range Interpretation Comments Red Cell Morphology Comment (test code = 6742-1) NORMAL [facility] Kxilqad5747-81-52 15:50:00* Test Item Value Reference Range Interpretation Comments Bedside Glucose (test code = 81178-3) 90 70-120 Meter ID: [id number] [facility] Glucose 2019-01-26 15:50:00* Test Item Value Reference Range Interpretation Comments Bedside Glucose (test code = 77478-4) 90 70-120 Meter ID: [id number] [facility] by [facility]com[facility] (mass/volume)2019-01-26 14:09:00* Test Item Value Reference Range Interpretation Comments Bedside Glucose (test code = 40535-6) 90 70-120 Meter ID: [id number]. Luke's [facility] HospitalUrine BAH3369-62-23 06:45:00* Test Item Value Reference Range Interpretation Comments Urine WBC (test code = 5821-4) 0-5 0-5 [facility]andU[facility] XKD4978-71-75 06:45:00* Test Item Value Reference Range Interpretation Comments Urine RBC (test code = 99269-4) 0-5 0-5 [facility]andU[facility] Npcjppyl8128-89-83 06:45:00* Test Item Value Reference Range Interpretation Comments Urine Bacteria (test code = 69871-0) MANY NONE H [facility]andUrine Epithelial Stkry1159-68-69 06:45:00 * Test Item Value Reference Range Interpretation Comments Urine Epithelial Cells (test code = 64469-9) MANY NONE [facility]andUrine Calcium Oxalate Xuqhbrtf7161-31-17 06:45:00* Test Item Value Reference Range Interpretation Comments Urine Calcium Oxalate Crystals (test code = 5774-5) MANY FE W H [facility]andUrine Hpjad6190-40-81 06:45:00* Test Item Value Reference Range Interpretation Comments Urine Mucus (test code = 8247-9) MODERATE RARE H [facility]andU[facility] NKO0303-21-39 06:45:00* Test Item Value Reference Range Interpretation Comments Urine WBC (test code = 5821-4) 0-5 0-5 [facility]andU[facility] NRO2143-87-38 06:45:00* Test Item Value Reference Range Interpretation Comments Urine RBC (test code = 69245-6) 0-5 0-5 [facility]andU[facility] Qbfhrhrw4366-39-88 06:45:00* Test Item Value Reference Range Interpretation Comments Urine Bacteria (test code = 38924-0) MANY NONE H [facility]andUrine Epithelial Norlq6620-48-83 06:45:00 * Test Item Value Reference Range Interpretation Comments Urine Epithelial Cells (test code = 98560-7) MANY NONE [facility]andUrine Calcium Oxalate Ovocnegx0469-75-68 06:45:00* Test Item Value Reference Range Interpretation Comments Urine Calcium Oxalate Crystals (test code = 5774-5) MANY FE W H [facility]andU[facility] Rpyom8816-47-47 06:45:00* Test Item Value Reference Range Interpretation Comments Urine Mucus (test code = 8247-9) MODERATE RARE H [facility]andU[facility] Ythdx9615-34-67 06:26:00* Test Item Value Reference Range Interpretation Comments Urine Color (test code = 5778-6) YELLOW YELLOW [facility]andU[facility] Wsgzbqo5412-70-67 06:26:00* Test Item Value Reference Range Interpretation Comments Urine Clarity (test code = 47608-5) HAZY CLEAR [facility]andUrine Specific Axeczdw8367-55-92 06:26:00 * Test Item Value Reference Range Interpretation Comments Urine Specific [place] (test code = 5811-5) 1.030 1.010-1.02 5 H [facility]andUrine rV1414-66-05 06:26:00* Test Item Value Reference Range Interpretation Comments Urine pH (test code = 97192-0) 6 5-7 [facility]andU[facility] Leukocyte Ukwskqds8302-23-16 06:26:00* Test Item Value Reference Range Interpretation Comments Urine Leukocyte Esterase (test code = 5799-2) NEGATIVE NEGATIVE [facility]andU[facility] Mjbdmgr7724-96-23 06:26:00* Test Item Value Reference Range Interpretation Comments Urine Nitrite (test code = 81705-3) NEGATIVE NEGATIVE [facility]andU[facility] Ptcojkd5408-99-25 06:26:00* Test Item Value Reference Range Interpretation Comments Urine Protein (test code = 5804-0) NEGATIVE NEGATIVE [facility]andU[facility] Glucose (UA)2019-01-26 06:26:00* Test Item Value Reference Range Interpretation Comments Urine Glucose (UA) (test code = 2349-9) NEGATIVE NEGATIVE [facility]andU[facility] Cqmrlrj5155-40-63 06:26:00* Test Item Value Reference Range Interpretation Comments Urine Ketones (test code = 73803-5) 2+ NEGATIVE H [facility] Uttwgefanhrn8922-88-29 06:26:00* Test Item Value Reference Range Interpretation Comments Urine Urobilinogen (test code = 67967-8) 0.2 0.2-1 [facility] Hupffmkat8301-46-97 06:26:00* Test Item Value Reference Range Interpretation Comments Urine Bilirubin (test code = 1978-6) NEGATIVE NEGATIVE [facility] Kuyry3899-11-07 06:26:00* Test Item Value Reference Range Interpretation Comments Urine Blood (test code = 42216-5) NEGATIVE NEGATIVE [facility]andU[facility] Lynxg5068-44-60 06:26:00* Test Item Value Reference Range Interpretation Comments Urine Color (test code = 5778-6) YELLOW YELLOW [facility]andU[facility] Aipcpea3982-91-57 06:26:00* Test Item Value Reference Range Interpretation Comments Urine Clarity (test code = 39436-4) HAZY CLEAR [facility]andU[facility] Specific Nkwsjcx6759-97-39 06:26:00 * Test Item Value Reference Range Interpretation Comments Urine Specific [place] (test code = 5811-5) 1.030 1.010-1.02 5 H [facility]andU[facility] mF7793-46-49 06:26:00* Test Item Value Reference Range Interpretation Comments Urine pH (test code = 71925-3) 6 5-7 [facility] Leukocyte Bvtugjjv2199-70-17 06:26:00* Test Item Value Reference Range Interpretation Comments Urine Leukocyte Esterase (test code = 5799-2) NEGATIVE NEGATIVE [facility] Bikgjnd6223-77-10 06:26:00* Test Item Value Reference Range Interpretation Comments Urine Nitrite (test code = 82839-3) NEGATIVE NEGATIVE [facility] Vyowtpt7700-61-19 06:26:00* Test Item Value Reference Range Interpretation Comments Urine Protein (test code = 5804-0) NEGATIVE NEGATIVE [facility] Glucose (UA)2019-01-26 06:26:00* Test Item Value Reference Range Interpretation Comments Urine Glucose (UA) (test code = 2349-9) NEGATIVE NEGATIVE [facility]andU[facility] Dwtxwno1920-63-66 06:26:00* Test Item Value Reference Range Interpretation Comments Urine Ketones (test code = 24756-5) 2+ NEGATIVE H [facility] Nnucflperqbn9620-71-36 06:26:00* Test Item Value Reference Range Interpretation Comments Urine Urobilinogen (test code = 30550-9) 0.2 0.2-1 [facility] Aifljijxx1108-54-29 06:26:00* Test Item Value Reference Range Interpretation Comments Urine Bilirubin (test code = 1978-6) NEGATIVE NEGATIVE [facility] Tgxij5689-62-23 06:26:00* Test Item Value Reference Range Interpretation Comments Urine Blood (test code = 14819-0) NEGATIVE NEGATIVE [facility]andMucus detection in urine sediment by light wtdrgjtgig4643-62-86 04:54:00* Test Item Value Reference Range Interpretation Comments Urine Mucus (test code = 8247-9) MODERATE RARE [facility]andPhosphorus Cqirv8616-98-83 08:57:00* Test Item Value Reference Range Interpretation Comments Phosphorus Level (test code = MTP4598) 2.7 2.3-4.7 [facility]andMagnesium Uaugg3096-14-83 08:57:00* Test Item Value Reference Range Interpretation Comments Magnesium Level (test code = 51514-3) 1.8 1.3-2.1 [facility]andPhosphorus Qnbsl2149-13-20 08:57:00* Test Item Value Reference Range Interpretation Comments Phosphorus Level (test code = YHR0815) 2.7 2.3-4.7 [facility]andMagnesium Dxopv4671-46-04 08:57:00* Test Item Value Reference Range Interpretation Comments Magnesium Level (test code = 95320-8) 1.8 1.3-2.1 [facility]andPhosphorus pokdvrndypn9461-56-99 06:42:00 * Test Item Value Reference Range Interpretation Comments Phosphorus Level (test code = CIY7672) 2.7 2.3-4.7 [facility] magnesium measurement (mass/volume)2019-01-25 06:42:00* Test Item Value Reference Range Interpretation Comments Magnesium Level (test code = 68582-3) 1.8 1.3-2.1 [facility]andBlood Foblbkb6399-62-90 17:05:00* Test Item Value Reference Range Interpretation Comments Blood Culture (test code = 77923166) NO GROWTH AFTER 5 DAYS, FINAL REPORT [facility]andBlood Qwjlpzs3883-66-20 17:05:00* Test Item Value Reference Range Interpretation Comments Blood Culture (test code = 20022258) NO GROWTH AFTER 5 DAYS, FINAL REPORT [facility]andInfluenza Virus Types A,B Antigen 2019-01-12 17:30:00* Test Item Value Reference Range Interpretation Comments Influenza Virus Types A,B Antigen (test code = 93904-1) NEGATIVE NEGATIVE [facility]andInfluenza Virus Types A,B Antigen 2019-01-12 17:30:00* Test Item Value Reference Range Interpretation Comments Influenza Virus Types A,B Antigen (test code = 32509-5) NEGATIVE NEGATIVE [facility]andInfluenza Virus Types A,B Antigen 2019-01-12 17:30:00* Test Item Value Reference Range Interpretation Comments Influenza Virus Types A,B Antigen (test code = 05734-1) NEGATIVE NEGATIVE [facility]andCHEST 2 ABJLN4934-38-30 17:30:00 [facility] [address] [address] Patient Name: RIGO ALLEN MR #: [id number] : 1970 Age/Sex: 48/F Req #: [id number] Adm Physician: Ordered by: LORI PAULSON OPERATOR SPECIALIST COMMUNICATIONS Report #: [id number] Location: ER Room/Bed: Procedure: 1203-006 6 DX/CHEST [...] DILIP on 01/12/191730 COPY TO: LORI PAULSON OPERATOR SPECIALIST COMMUNICATIONS Sodium Toozi7971-86-46 17:18:00 * Test Item Value Reference Range Interpretation Comments Sodium Level (test code = 2951-2) 139 136-145 [facility]andPotassium Fmili6214-94-28 17:18:00* Test Item Value Reference Range Interpretation Comments Potassium Level (test code = 2823-3) 4.3 3.5-5.1 [facility]andChloride Vrzfg6291-25-56 17:18:00* Test Item Value Reference Range Interpretation Comments Chloride Level (test code = 2075-0) 103 98-107 [facility]andCarbon Dioxide Bppjf4706-74-36 17:18:00* Test Item Value Reference Range Interpretation Comments Carbon Dioxide Level (test code = 2028-9) 25 22-29 [facility]andAnion Dsl4800-92-10 17:18:00* Test Item Value Reference Range Interpretation Comments Anion Gap (test code = 76101-2) 15.3 8-16 [facility]andBlood Urea Zegotrzg5289-28-97 17:18:00* Test Item Value Reference Range Interpretation Comments Blood Urea Nitrogen (test code = 3094-0) 11 7-26 [facility]andCreatinine2019-12-03 17:18:00* Test Item Value Reference Range Interpretation Comments Creatinine (test code = 2160-0) 0.75 0.57-1.11 [facility]andBUN/Creatinine Cmrvo6596-88-38 17:18:00* Test Item Value Reference Range Interpretation Comments BUN/Creatinine Ratio (test code = 3097-3) 15 6-25 [facility]ellandEstimat Glomerular Filtration Rate 2019-01-12 17:18:00* Test Item Value Reference Range Interpretation Comments Estimat Glomerular Filtration Rate (test code = 098388712) > 60 >60 Ranges were taken from the National Kidney Disease Education Program and the [facility] literature.Reference ranges:60 or greater: Psmbug26-44 ( for 3 consecutive months): Chronic kidney disease 15 or less: Kidney failureCovenant Health LevellandGlucose Kjnkd8980-73-08 17:18:00* Test Item Value Reference Range Interpretation Comments Glucose Level (test code = XNE7527) 104 74-118 [facility]andCalcium Lpyam5261-15-88 17:18:00* Test Item Value Reference Range Interpretation Comments Calcium Level (test code = 03382-3) 9.3 8.4-10.2 [facility] Aohllbqfc4973-14-49 17:18:00* Test Item Value Reference Range Interpretation Comments Total Bilirubin (test code = 1974-2) 0.4 0.2-1.2 [facility]ellandAspartate Amino Transf (AST/SGOT) 2019-01-12 17:18:00* Test Item Value Reference Range Interpretation Comments Aspartate Amino Transf (AST/SGOT) (test code = Aspartate Amino Transf (AST/SGOT)) 16 5-34 [facility]andAlanine Aminotransferase (ALT/SGPT) 2019-01-12 17:18:00* Test Item Value Reference Range Interpretation Comments Alanine Aminotransferase (ALT/SGPT) (test code = 1742-6) 12 0-55 [facility] Cqrgjfc2025-69-14 17:18:00* Test Item Value Reference Range Interpretation Comments Total Protein (test code = 2885-2) 6.9 6.5-8.1 [facility]andAlbumin2019-12-03 17:18:00* Test Item Value Reference Range Interpretation Comments Albumin (test code = 1751-7) 3.8 3.5-5.0 [facility]andGlobulin2019-12-03 17:18:00* Test Item Value Reference Range Interpretation Comments Globulin (test code = 02855-0) 3.1 2.3-3.5 [facility]andAlbumin/Globulin Skbxr5547-18-92 17:18:00 * Test Item Value Reference Range Interpretation Comments Albumin/Globulin Ratio (test code = 1759-0) 1.2 0.8-2.0 [facility]andAlkaline Xcvboczwaoa1605-62-24 17:18:00* Test Item Value Reference Range Interpretation Comments Alkaline Phosphatase (test code = 6768-6) 96 40-150 [facility] Pbvzkaeqi0314-46-34 17:18:00* Test Item Value Reference Range Interpretation Comments Total Bilirubin (test code = 1974-2) 0.4 0.2-1.2 [facility]ellandAspartate Amino Transf (AST/SGOT) 2019-01-12 17:18:00* Test Item Value Reference Range Interpretation Comments Aspartate Amino Transf (AST/SGOT) (test code = Aspartate Amino Transf (AST/SGOT)) 16 [facility]andAlanine Aminotransferase (ALT/SGPT) 2019-01-12 17:18:00* Test Item Value Reference Range Interpretation Comments Alanine Aminotransferase (ALT/SGPT) (test code = 1742-6) 12 0-55 [facility]andTotal Leoezaf2618-84-60 17:18:00* Test Item Value Reference Range Interpretation Comments Total Protein (test code = 2885-2) 6.9 6.5-8.1 [facility]andAlbumin2019-12-03 17:18:00* Test Item Value Reference Range Interpretation Comments Albumin (test code = 1751-7) 3.8 3.5-5.0 [facility]andGlobulin2019-12-03 17:18:00* Test Item Value Reference Range Interpretation Comments Globulin (test code = 34431-1) 3.1 2.3-3.5 [facility]andAlbumin/Globulin Djpyi5549-61-33 17:18:00 * Test Item Value Reference Range Interpretation Comments Albumin/Globulin Ratio (test code = 1759-0) 1.2 0.8-2.0 [facility]andAlkaline Nmgvhaevjyc5233-50-14 17:18:00* Test Item Value Reference Range Interpretation Comments Alkaline Phosphatase (test code = 6768-6) 96 40-150 [facility]andTotal Prabkmtgw1136-26-90 17:18:00* Test Item Value Reference Range Interpretation Comments Total Bilirubin (test code = 1975-2) 0.4 0.2-1.2 [facility]ellandAspartate Amino Transf (AST/SGOT) 2019-01-12 17:18:00* Test Item Value Reference Range Interpretation Comments Aspartate Amino Transf (AST/SGOT) (test code = Aspartate Amino Transf (AST/SGOT)) 16 [facility]andAlanine Aminotransferase (ALT/SGPT) 2019-01-12 17:18:00* Test Item Value Reference Range Interpretation Comments Alanine Aminotransferase (ALT/SGPT) (test code = 1742-6) 12 0-55 [facility]andTotal Kumbhqh9012-19-16 17:18:00* Test Item Value Reference Range Interpretation Comments Total Protein (test code = 2885-2) 6.9 6.5-8.1 [facility]andAlbumin2019-12-03 17:18:00* Test Item Value Reference Range Interpretation Comments Albumin (test code = 1751-7) 3.8 3.5-5.0 [facility]andGlobulin2019-12-03 17:18:00* Test Item Value Reference Range Interpretation Comments Globulin (test code = 53351-0) 3.1 2.3-3.5 [facility]andAlbumin/Globulin Gprhq6078-67-31 17:18:00 * Test Item Value Reference Range Interpretation Comments Albumin/Globulin Ratio (test code = 1759-0) 1.2 0.8-2.0 [facility]andAlkaline Wmbstnexlhs1791-84-36 17:18:00* Test Item Value Reference Range Interpretation Comments Alkaline Phosphatase (test code = 6768-6) 96 40-150 [facility]andUrine DKT3982-04-30 17:13:00* Test Item Value Reference Range Interpretation Comments Urine WBC (test code = 5821-4) NONE 0-5 [facility]andUrine LLI1853-00-49 17:13:00* Test Item Value Reference Range Interpretation Comments Urine RBC (test code = 73845-0) NONE 0-5 [facility]andUrine Brtakpob1282-97-78 17:13:00* Test Item Value Reference Range Interpretation Comments Urine Bacteria (test code = 53455-2) FEW NONE [facility]andUrine Epithelial Edhxh7044-27-68 17:13:00 * Test Item Value Reference Range Interpretation Comments Urine Epithelial Cells (test code = 20099-3) RARE NONE [facility]andGroup A Streptococcus Cuthxw5775-79-65 17:12:00* Test Item Value Reference Range Interpretation Comments Group A Streptococcus Screen (test code = 27216-0) NEGATIVE NEG ATIVE [facility]andGroup A Streptococcus Hzabgg3332-47-98 17:12:00* Test Item Value Reference Range Interpretation Comments Group A Streptococcus Screen (test code = 59562-2) NEGATIVE NEG ATIVE [facility]andGroup A Streptococcus Yejmpf4137-63-03 17:12:00* Test Item Value Reference Range Interpretation Comments Group A Streptococcus Screen (test code = 49184-9) NEGATIVE NEG ATIVE [facility]andWhite Blood Emutr5025-40-01 17:03:00* Test Item Value Reference Range Interpretation Comments White Blood Count (test code = 6690-2) 6.70 4.8-10.8 [facility]andRed Blood Rofor8920-61-15 17:03:00* Test Item Value Reference Range Interpretation Comments Red Blood Count (test code = 789-8) 4.46 3.6-5.1 [facility]andHemoglobin2019-12-03 17:03:00* Test Item Value Reference Range Interpretation Comments Hemoglobin (test code = 16139-5) 12.9 12.0-16.0 [facility]andHematocrit2019-12-03 17:03:00* Test Item Value Reference Range Interpretation Comments Hematocrit (test code = 4544-3) 39.7 34.2-44.1 [facility]andMean Corpuscular Lwxxjg8001-27-35 17:03:00* Test Item Value Reference Range Interpretation Comments Mean Corpuscular Volume (test code = 787-2) 89.0 81-99 [facility]andMean Corpuscular Lnrbjkpatz8571-49-66 17:03:00* Test Item Value Reference Range Interpretation Comments Mean Corpuscular Hemoglobin (test code = 785-6) 28.9 28-32 [facility]andMean Corpuscular Hemoglobin Concent 2019-01-12 17:03:00* Test Item Value Reference Range Interpretation Comments Mean Corpuscular Hemoglobin Concent (test code = 786-4) 32.5 31-35 [facility]ellandRed Cell Distribution Qzemu4410-11-00 17:03:00* Test Item Value Reference Range Interpretation Comments Red Cell Distribution Width (test code = 12891-5) 14.6 11.7 -14.4 H [facility]ellandPlatelet Wgzuy1890-40-96 17:03:00* Test Item Value Reference Range Interpretation Comments Platelet Count (test code = 777-3) 287 140-360 [facility]andNeutrophils (%) (Auto)2019-01-12 17:03:00 * Test Item Value Reference Range Interpretation Comments Neutrophils (%) (Auto) (test code = 37786-9) 53.9 38.7-80.0 [facility]andLymphocytes (%) (Auto)2019-01-12 17:03:00 * Test Item Value Reference Range Interpretation Comments Lymphocytes (%) (Auto) (test code = 736-9) 38.2 18.0-39.1 [facility]andMonocytes (%) (Auto)2019-01-12 17:03:00* Test Item Value Reference Range Interpretation Comments Monocytes (%) (Auto) (test code = 5905-5) 6.4 4.4-11.3 [facility]andEosinophils (%) (Auto)2019-01-12 17:03:00 * Test Item Value Reference Range Interpretation Comments Eosinophils (%) (Auto) (test code = 713-8) 1.0 0.0-6.0 [facility]andBasophils (%) (Auto)2019-01-12 17:03:00* Test Item Value Reference Range Interpretation Comments Basophils (%) (Auto) (test code = 706-2) 0.4 0.0-1.0 [facility]ellandIM GRANULOCYTES %2019-01-12 17:03:00* Test Item Value Reference Range Interpretation Comments IM GRANULOCYTES % (test code = IM GRANULOCYTES %) 0.1 0.0- 1.0 [facility]andNeutrophils # (Auto)2019-01-12 17:03:00* Test Item Value Reference Range Interpretation Comments Neutrophils # (Auto) (test code = 751-8) 3.6 2.1-6.9 [facility]andLymphocytes # (Auto)2019-01-12 17:03:00* Test Item Value Reference Range Interpretation Comments Lymphocytes # (Auto) (test code = 54525-5) 2.6 1.0-3.2 [facility]andMonocytes # (Auto)2019-01-12 17:03:00* Test Item Value Reference Range Interpretation Comments Monocytes # (Auto) (test code = 742-7) 0.4 0.2-0.8 [facility]andEosinophils # (Auto)2019-01-12 17:03:00* Test Item Value Reference Range Interpretation Comments Eosinophils # (Auto) (test code = 711-2) 0.1 0.0-0.4 [facility]andBasophils # (Auto)2019-01-12 17:03:00* Test Item Value Reference Range Interpretation Comments Basophils # (Auto) (test code = 704-7) 0.0 0.0-0.1 [facility]andAbsolute Immature Granulocyte (auto 2019-01-12 17:03:00* Test Item Value Reference Range Interpretation Comments Absolute Immature Granulocyte (auto (harshad t code = Absolute Immature Granulocyte (auto) 0.01 0-0.1 [facility] [id number] 17:02:00* Test Item Value Reference Range Interpretation Comments Urine Color (test code = 5778-6) YELLOW YELLOW [facility] [id number] 17:02:00* Test Item Value Reference Range Interpretation Comments Urine Clarity (test code = 25091-9) SL CLOUDY CLEAR [facility] Specific Bbalpws9364-73-56 17:02:00 * Test Item Value Reference Range Interpretation Comments Urine Specific [place] (test code = 5811-5) 1.025 1.010-1.02 5 [facility] [id number] 17:02:00* Test Item Value Reference Range Interpretation Comments Urine pH (test code = 60841-9) 6 5-7 [facility] Leukocyte Hqzioosh9894-63-76 17:02:00* Test Item Value Reference Range Interpretation Comments Urine Leukocyte Esterase (test code = 98302-9) NEGATIVE NEGATIV E [facility] Btzwkyg9672-20-93 17:02:00* Test Item Value Reference Range Interpretation Comments Urine Nitrite (test code = 88562-1) NEGATIVE NEGATIVE [facility] Dtjnnog7467-25-46 17:02:00* Test Item Value Reference Range Interpretation Comments Urine Protein (test code = 96660-5) NEGATIVE NEGATIVE [facility] Glucose (UA)2019-01-12 17:02:00* Test Item Value Reference Range Interpretation Comments Urine Glucose (UA) (test code = 77758-9) NEGATIVE NEGATIVE [facility] Stqrhkr6638-99-93 17:02:00* Test Item Value Reference Range Interpretation Comments Urine Ketones (test code = 00243-3) TRACE NEGATIVE [facility] Uitsbjhcsgwc8142-93-85 17:02:00* Test Item Value Reference Range Interpretation Comments Urine Urobilinogen (test code = 20718-5) 0.2 0.2-1 [facility] Egfxzpwir5518-99-53 17:02:00* Test Item Value Reference Range Interpretation Comments Urine Bilirubin (test code = 1977-8) NEGATIVE NEGATIVE [facility] Owery7280-23-27 17:02:00* Test Item Value Reference Range Interpretation Comments Urine Blood (test code = 50524-2) NEGATIVE NEGATIVE [facility] jqaedqh0313-32-47 15:55:00* Test Item Value Reference Range Interpretation Comments Blood Culture (test code = 17973779) NO GROWTH AFTER 5 DAYS, FINAL REPORT [facility] virus A and B antigen identification by ahimcvnkoqukaodekk2847-74-32 15:40:00* Test Item Value Reference Range Interpretation Comments Influenza Virus Types A,B Antigen (test code = 63209-5) NEGATIVE NEGATIVE [facility] detection in ubxgdl4940-47-11 15:40:00* Test Item Value Reference Range Interpretation Comments Group A Streptococcus Screen (test code = 34695-2) NEGATIVE NEG ATIVE [facility] WITH FYMEYLUIKTC4457-92-69 10:53:00* Test Item Value Reference Range Interpretation Comments Color (test code = UCOLR) YELLOW Clarity (test code = UCLAR) CLEAR Glucose (test code = UGLUC) NEGATIVE NEGATIVE N Bilirubin (test code = UBILI) NEGATIVE NEGATIVE N Ketones (test code = UKET) >=80 NEGATIVE A Specific [place] (test code = USPGR) >=1.030 1.005-1.030 A [...] None Seen N XR ABD SERIES W/PA [id number] 09:57:04Procedure: XR ABD SERIES W/PA CXRExam Date: [...] final report was electronically signed by Dr Patricio Blackburn MD 02/03/20179:50 AMDictated By: PATRICIO BLACKBURNDate: 02/03/2017 09:97AZOAGTMWF7517-20-84 09:02:00* Test Item Value Reference Range Interpretation Comments Magnesium (test code = MG) 1.8 mg/dl 1.6-2.3 LIPASE, HURSQ1231-28-81 09:02:00* Test Item Value Reference Range Interpretation Comments Lipase (test code = LIPA) 24 U/L 8-223 [id number] 09:02:00* Test Item Value Reference Range Interpretation [...] of chronic kidney failure. CBC WITH AUTO ZBPM2016-29-19 08:22:00* Test Item Value Reference Range Interpretation [...] % 0.0-0.4 AUTO DIFFMAMMOGRAPHY DIGITAL SCR BILAT [facility] [address] [address] Patient Name: RIGO ALLEN MR #: [id number] : 1970 Age/Sex: 46/F Req #: [id number] Adm Physician: Ordered by: FLORENCE CHILD MD Report #: [id number] Location: MAMMO Room/Bed: Procedure: 5852-4013 MG/MAMMOGRAPHY DIGITAL S CR BILAT Exam Date: 12/03/16 Exam Time: 0913 R EPORT STATUS: Signed #[id number] - MGSCRBIL #BILATERAL DIGITAL SCREEN ING MAMMOGRAM WITH CAD: 12/03/2016 CLINICAL: Routine screening. Compari son is made to exams dated: 04/02/2013 mammogram - [facility] and 07/21/2009 mammogram - [facility]. Current study con tains 4 [...] notified by letter of the results. Ok basurto/penrad:12/14/2016 11:24:35 Manager Garage: Agnieszka ANDRES)(Diane), [facility] letter sent: Compared to Prior B9 Mammogram BI-RADS: 2 Benign Dictated By: OK FARFAN DO 112 Transcribed By: BRANDON on 12/14/16 1124 COPY TO: FLORENCE CHILD MD
--- NOTE | 2019-11-18 02:15 | NUR ---
PATIENT ARRIVED VIA STRETCHER BY AMBULANCE, PLACED IN ROOM 201, AOX4, NAUSEA NOTED, C/O ABDOMEN PAIN, GAIT STEADY, ADMISSION COMPLETED, MD PURCELL CONSULTED, MD HENDRIX CONTACTED FOR ORDERS BUT MD PURCELL RETURN CALL AND ORDERS GIVEN FROM HIM AT THIS TIME, CALL LIGHT WITHIN REACH, ORIENTED TO STAFF AND ROOM, PLACED ON TELEMETRY R/T BRADYCARDIA
[2019-11-18] MEDS ORDERED: ACETAMINOPHEN 325 MG TAB PO PRN (02:30)
[2019-11-18] MEDS ORDERED: ONDANSETRON HCL INJ 2MG/ML 2ML 2 MG/ML VIAL IV PRN (02:30)
[2019-11-18] MEDS ORDERED: SODIUM CHLORIDE 0.9% 250ML 250 ML IV ONE ×2 (03:02→03:15)
[2019-11-18] MEDS ORDERED: METOCLOPRAMIDE HCL 10 MG/2ML VIAL IV ONE (03:15)
--- NOTE | 2019-11-18 03:40 | NUR ---
md buckner paged to obtain PRN PAIN MEDICATION, PT STATES PAIN LEVEL 9/10 MID ABDOMEN AREA, MD PURCELL CONSULTED, ORDERS OBTAINED FOR REGLAN AND CONTINOUS IV FLUIDS
--- NOTE | 2019-11-18 03:56 | NUR ---
PAGED MD HENDRIX NO CALL BACK YET, CONTACT MD PURCELL UPDATED ON PATIENT PAIN LEVEL, ORDER TORADOL 30MG IV q6h PRN PAIN
[2019-11-18] MEDS: KETOROLAC TROMETHAMINE 30 MG/ML VIAL IM PRN ×3 (04:18→17:22)
[2019-11-18] MEDS ORDERED: LACTATED RINGER'S 1,000 ML INJ ONE (05:00)
[2019-11-18] MEDS: PANTOPRAZOLE 40 MG 10ML VIAL IV SCH ×3 (05:24→16:00)
--- NOTE | 2019-11-18 05:34 | NUR ---
patient seen sleeping, no s/sx of pain or discomfort noted, skin warm dry, call light within reach
[2019-11-18] MEDS: ONDANSETRON HCL INJ 2MG/ML 2ML 2 MG/ML VIAL IV PRN ×3 (06:45→17:22)
--- NOTE | 2019-11-18 07:00 | NUR ---
PATIENT IS AWAKE, ALERT, AND IN STABLE CONDITION WITH NO S/S OF RESPIRATORY DISTRESS. PATIENT C/O GENERALIZE PAIN 09/19- PATIENT RECEIVED PAIN MEDICATION RECENTLY. TELEMETRY APPLIED. PATIENT IS NPO; IV FLUIDS INFUSING. CALL LIGHT IS WITHIN REACH OF PATIENT, PATIENT INSTRUCTED TO CALL FOR ASSISTANCE NEEDED.
[2019-11-18 08:27] LABS: BASOPHILS % 0.1 % (0.0-1.0); HEMATOCRIT 37.3 % (34.2-44.1); HEMOGLOBIN 11.7 g/dL (12.0-16.0); LYMPHOCYTES % 10.6 % (18.0-39.1); MEAN CORPUSCULAR HEMOGLOBIN 26.4 pg (28-32); MEAN CORPUSCULAR HGB CONC 31.4 g/dL (31-35); MEAN CORPUSCULAR VOLUME 84.2 fL (81-99); MONOCYTES # (AUTO) 0.3 (0.2-0.8); MONOCYTES % 2.9 % (4.4-11.3); NEUTROPHILS # (AUTO) 7.9 (2.1-6.9); NEUTROPHILS % 86.1 % (38.7-80.0); PLATELET COUNT 283 x10e3/uL (140-360); RED BLOOD COUNT 4.43 x10e6/uL (3.6-5.1); RED CELL DISTRIBUTION WIDTH 15.4 % (11.7-14.4)
[2019-11-18 08:54] LABS: ALANINE AMINOTRANSFERASE 25 IU/L (0-55); ALBUMIN 3.7 g/dL (3.5-5.0); ALBUMIN/GLOBULIN RATIO 1.2 (0.8-2.0); ALKALINE PHOSPHATASE 83 IU/L (40-150); BLOOD UREA NITROGEN 10 mg/dL (7-26); BUN/CREATININE RATIO 16 (6-25); CALCIUM 8.8 mg/dL (8.4-10.2); CARBON DIOXIDE 18 mmol/L (22-29); CHLORIDE 108 mmol/L (98-107); CREATININE, SERUM 0.64 mg/dL (0.57-1.11); EST GLOMERULAR FILTRATION RATE > 60 ML/MIN (60-); GLUCOSE 125 mg/dL (74-118); SODIUM 138 mmol/L (136-145)
[2019-11-18] MEDS ORDERED: METOCLOPRAMIDE HCL 10 MG/2ML VIAL IV SCH (09:00)
--- NOTE | 2019-11-18 11:30 | History and Physical ---
CHIEF COMPLAINT: Abdominal pain, nausea, and vomiting. HISTORY OF PRESENT ILLNESS: Ms. Jones is a 49-year-old female. She has a history of gastric bypass surgery. The patient had multiple admissions with complaints of the abdominal pain, nausea, and vomiting. She has been a smoker, half-a-pack per day for few years. She was here in February of 2019. She denies any chest pain. She is having nausea and vomiting and abdominal discomfort. Has been seen by Dr. Elliott Fountain in the past. REVIEW OF SYSTEMS: Nausea, vomiting. No fever. No chills. No chest pain. The rest is negative except as in HPI. PAST MEDICAL HISTORY: Hypertension, depression, anxiety, and chronic pain. MEDICATIONS: Reviewed. PAST SURGICAL HISTORY: History of lap band, history of hysterectomy, and cholecystectomy. PHYSICAL EXAMINATION: VITAL SIGNS: Temperature 98.5, pulse of 68, blood pressure 140/76, respiratory rate of 18, and O2 saturation 100%. CHEST: Clear to auscultation bilaterally. No wheezing. Good effort. ABDOMEN: Soft. Mild tenderness in the epigastrium. EXTREMITIES: No pedal edema. NEUROLOGIC: Awake and alert. No focal neurologic deficit. LABORATORY DATA: White count of 9000, hemoglobin 11.7, and platelets 283. Chemistries within normal limits that was done on 11/17. Her verbal report given to me by neighbor's ER was that the CT was normal. The CT report in the computer shows that the patient has no acute findings in the abdomen and pelvis, hepatomegaly and hepatic steatosis, Kellie-en-Y gastric bypass. ASSESSMENT: Ms. Jones is a 49-year-old female with a history of gastric bypass, came in with abdominal pain, nausea, and vomiting. PLAN: GI consult. Once cleared by GI, the patient can be discharged home. The patient is to continue the home medications. Currently, the patient is n.p.o. We will start the feeding when cleared by GI. MD MIMA Rivera/EVENS /[id number]
--- NOTE | 2019-11-18 13:12 | NUR ---
REACHED OUT TO DR. PURCELL REGARDING PATIENT'S IV FLUID ORDER- AWAITING CALLBACK.
[2019-11-18] MEDS: METOCLOPRAMIDE HCL 10 MG/2ML VIAL IV SCH ×2 (14:04→19:47)
--- NOTE | 2019-11-18 15:21 | NUR ---
CALL PLACED OUT TO DR. HENDRIX REGARDING IV FLUID ORDER- AWAITING CALLBACK.
[2019-11-18] MEDS: DULOXETINE HCL 30 MG DELAYED RELEASE PO SCH (16:00)
[2019-11-18] MEDS: LACTATED RINGER'S 1,000 ML INJ SCH (17:22)
--- NOTE | 2019-11-18 18:43 | NUR ---
PATIENT IS IN STABLE CONDITION WITH NO S/S OF RESPIRATORY DISTRESS. NO PAIN VOICED AT THIS TIME. TELEMETRY APPLIED. IV FLUIDS INFUSING. CALL LIGHT IS WITHIN REACH OF PATIENT, PATIENT INSTRUCTED TO CALL FOR ASSISTANCE NEEDED. BEDSIDE SHIFT REPORT GIVEN TO ONCOMING NURSE.
--- NOTE | 2019-11-18 19:20 | NUR ---
SBAR RECEIVED FROM DAYSHIFT RN AT BEDSIDE, PATIENT PARTICIPATED IN SHIFT REPORT, PATIENT SEEN AOX4, PATIENT STABLE NO DISTRESS NOTED, NO NAUSEA, REMAINS NPO, ALLOWED TO HAVE ICE CHIPS PER ORDER IF TOLERATING WELL, PATIENT VSS, AFEBRILE, IV FLUIDS LR @75CC/HR INFUSING, SKIN WARM DRY CALL LIGHT WITHIN REACH,
[2019-11-18] MEDS: TRAMADOL HCL 50 MG TAB PO PRN (19:50)
[2019-11-19] VITALS (9 sets, daily range): BP systolic 101–116; BP diastolic 46–88
[2019-11-19] MEDS: ONDANSETRON HCL INJ 2MG/ML 2ML 2 MG/ML VIAL IV PRN ×3 (00:38→11:55)
[2019-11-19] MEDS: KETOROLAC TROMETHAMINE 30 MG/ML VIAL IM PRN ×2 (00:39→07:42)
[2019-11-19] MEDS: METOCLOPRAMIDE HCL 10 MG/2ML VIAL IV SCH ×4 (01:38→17:17)
[2019-11-19 05:21] LABS: BASOPHILS % 0.5 % (0.0-1.0); EOSINOPHILS % 0.3 % (0.0-6.0); HEMATOCRIT 31.5 % (34.2-44.1); LYMPHOCYTES # (AUTO) 2.3 (1.0-3.2); MEAN CORPUSCULAR HEMOGLOBIN 26.9 pg (28-32); MEAN CORPUSCULAR HGB CONC 31.7 g/dL (31-35); MEAN CORPUSCULAR VOLUME 84.7 fL (81-99); MONOCYTES # (AUTO) 0.5 (0.2-0.8); MONOCYTES % 7.9 % (4.4-11.3); NEUTROPHILS # (AUTO) 3.6 (2.1-6.9); PLATELET COUNT 234 x10e3/uL (140-360); RED BLOOD COUNT 3.72 x10e6/uL (3.6-5.1); RED CELL DISTRIBUTION WIDTH 15.5 % (11.7-14.4)
[2019-11-19] MEDS: LACTATED RINGER'S 1,000 ML INJ SCH (05:30)
[2019-11-19 05:44] LABS: ALANINE AMINOTRANSFERASE 20 IU/L (0-55); ALBUMIN/GLOBULIN RATIO 1.3 (0.8-2.0); ALKALINE PHOSPHATASE 65 IU/L (40-150); ANION GAP 11.6 mmol/L (8-16); BLOOD UREA NITROGEN 14 mg/dL (7-26); BUN/CREATININE RATIO 21 (6-25); CALCIUM 8.1 mg/dL (8.4-10.2); CARBON DIOXIDE 22 mmol/L (22-29); CHLORIDE 109 mmol/L (98-107); CREATININE, SERUM 0.67 mg/dL (0.57-1.11); EST GLOMERULAR FILTRATION RATE > 60 ML/MIN (60-); GLUCOSE 98 mg/dL (74-118); POTASSIUM 3.6 mmol/L (3.5-5.1); SODIUM 139 mmol/L (136-145)
--- NOTE | 2019-11-19 07:00 | NUR ---
PATIENT IS AWAKE, ALERT, AND IN STABLE CONDITION WITH NO S/S OF RESPIRATORY DISTRESS. PATIENT C/O BACK PAIN 08/19. TELEMETRY APPLIED. IV FLUIDS INFUSING. PATIENT HAS STARTED ON CLEAR LIQUID DIET. CALL LIGHT IS WITHIN REACH OF PATIENT, PATIENT INSTRUCTED TO CALL FOR ASSISTANCE NEEDED.
--- NOTE | 2019-11-19 07:23 | NUR ---
END OF SHIFT REPORT GIVEN TO DAYSSHAZIA RN, PATIENT AOX3, SEEN IN BATHROOM, DENIES PAIN DENIES N/V GAIT STEADY, LR 75CC/HR INFUSING, TOLERATING WELL, DIET ADVANCE OVERNIGHT PER MD PURCELL, PATIENT TOLERATING WELL, CALL LIGHT WITHIN REACH
[2019-11-19] MEDS: DULOXETINE HCL 30 MG DELAYED RELEASE PO SCH ×2 (08:00→16:25)
[2019-11-19] MEDS: PANTOPRAZOLE 40 MG 10ML VIAL IV SCH ×2 (08:00→16:25)
[2019-11-19] MEDS ORDERED: LORAZEPAM 1 MG TAB PO SCH (09:00)
[2019-11-19] MEDS ORDERED: REGLAN5 MG PO (09:52)
--- NOTE | 2019-11-19 10:40 | Discharge Summary ---
Patient of Dr. Paulino and Dr. Elliott Fountain. HOSPITAL COURSE: A charming 49-year-old woman with history of gastric bypass in 2017 with significant weight loss. She is admitted from outside ER with abdominal pain, nausea and vomiting. She has had recurrent problems every six months since her surgery and is happy that she has lost the weight. She has history of hypertension, depression, and anxiety. In addition to hysterectomy and cholecystectomy, she has had a Kellie-en-Y surgery and history of hepatic steatosis. Her home medications had included Cymbalta, Lunesta, lorazepam, Protonix, and tramadol. Lunesta and Ativan were held in the hospital. Reglan was added. The patient improved. She was tolerating clear liquids, and is to be discharged if she can tolerate GI soft. She does have anemia, hemoglobin of 10, RDW is elevated at 15.5, iron deficiencies suspected. She will be followed as an outpatient by Dr. Elliott Fountain. Marginal ulcer is not excluded. The plan is to discharge the patient if she is able to tolerate a soft diet, to be followed by Dr. Fountain as an outpatient. We discharged on Reglan 5 mg before meals, Cymbalta 30 mg, Protonix 40 mg, and Ultram as needed. MD GLEN Martinez/[place] /[id number]
[2019-11-19] MEDS: TRAMADOL HCL 50 MG TAB PO PRN (11:55)
[2019-11-19 12:07] LABS: % IRON SATURATION 37 % (15-50); IRON 157 ug/dL (50-170); TOTAL IRON BINDING CAPACITY 421 ug/dL (261-478); TRANSFERRIN 301 mg/dL (180-382)
--- NOTE | 2019-11-19 19:20 | NUR ---
PATIENT IS IN STABLE CONDITION WITH NO S/S OF RESPIRATORY DISTRESS. NO PAIN VOICED. TELEMETRY APPLIED. DR. PURCELL ROUNDED ON THE PATIENT AND GAVE CLEARANCE FOR DC; DR. PURCELL STATED FOR THE PATIENT TO CALL HIS OFFICE ON FRIDAY. DC ORDER WILL BE PLACED. CALL LIGHT IS WITHIN REACH OF PATIENT, PATIENT INSTRUCTED TO CALL FOR ASSISTANCE NEEDED. BEDSIDE SHIFT REPORT GIVEN TO ONCOMING NURSE.
--- NOTE | 2019-11-19 20:11 | NUR ---
DISCHARGED PATIENT HOME WITH ALL BELONGINGS AND PRESCRIPTION. VITAL SIGN STABLE AT THIS TIME.
== END 2019-11-19 20:21 | disposition home or self-care (01) ==
LOC: INTOOBSV 00:56 → MED/SURG2 00:56
PROVIDERS: ADMIT Internal Medicine; ATTEND Internal Medicine
DX: E86.0 Dehydration (principal); Z98.84 Bariatric surgery status; F17.210 Nicotine dependence, cigarettes, uncomplicated; K21.9 Gastro-esophageal reflux disease without esophagitis; I10 Essential (primary) hypertension; F32.9 Major depressive disorder, single episode, unspecified; Z90.49 Acquired absence of other specified parts of digestive tract; Z11.59 Encounter for screening for other viral diseases
CPT/HCPCS: 36415 ×2; 80053 ×2; 83540; 84466; 85025 ×2; C9113 ×2; G0378 ×2; J1885 ×2; J2405 ×2; J2765 ×2; J7050; J7121 ×2; U0002